=== PATIENT | female | born 1955 | race Caucasian/White ===

== ENCOUNTER 2019-11-08 19:23 | Inpatient (IN) | payer OTHER, SELFPAY ==
[2019-11-08 19:47] VITALS: BP 126/81; PULSE 152; RESP 22; TEMP 37.1; O2SAT 83; BMI 18.3
[2019-11-08 20:00] VITALS: BP 115/72; PULSE 121; RESP 18; O2SAT 94
--- NOTE | 2019-11-08 20:15 | XR_ITS ---
WS: [id number] XR chest 1V portable [id number] REASON FOR EXAM: cough/congestion FINDINGS: The lung lucero are hyper aerated. The heart mediastinum normal. There is reticular pattern throughout both lung lucero consistent with interstitial disease. There is mild blunting of the right costophrenic angle. The overall appearance the chest is similar to the pr evious exam November 26, 2012. There is arteriosclerotic changes seen in the arch the aorta. 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
--- NOTE | 2019-11-08 20:15 | ECG_ITS ---
Measurements Intervals [place] Rate: 92 P: 75 NH: 138 QRS: 66 QRSD: 88 T: 56 QT: 360 QTc: 445 SINUS RHYTHM WITH OCCASIONAL SUPRAVENTRICULAR PREMATURE COMPLEXES POSSIBLE ANTERIOR MYOCARDIAL INFARCTION , OF INDETERMINATE AGE [30 ms Q WAVE IN V3/V4, OR R < 0.2 mV IN V4] No previous ECG available for comparison Electronically Signed On 11-10-2019 12:44:12 CDT by Tim Ordonez [id number]
--- NOTE | 2019-11-08 20:16 | ED_ITS ---
Entered by Maura Mamhood, acting as scribe for HPI - URI/Sore Throat General: Chief Complaint: Upper Respiratory Infection Stated Complaint: cough/sob Time Seen by Provider: 11/08/19 20:08 Source: patient Mode of arrival: ambulatory Limitations: no limitations History of Present Illness: HPI Narrative: 64 yo Female presents to ED with flu like symptoms. Pt states that she started getting sick about 3 weeks ago. Pt states that she has been coughing, sneezing, has had weakness, and body aches. Pt states that some days she has been thrown up and others not so much. Pt states that she had a syncopal episode. Pt states that she previous had an episode of syncope in June and was told to come in if it happened again. Pt states that she is taking Lynn-seltzer cold and flu, mucinex, dayquil, nyquil, and cough medicine. Pt states that she doesn't have a history of atrial fibrillation. Pt states that before this started she was smoking 2 packs of cigarettes a day, pt states that now she smokes about a 1/2 pack per day. Pt states that she has been coughing up phlegm and spitting it out. MD elicited complaint: cough, sore throat and rhinorrhea Onset (ago): week(s) (3) Consistency: progressively worsening Able to tolerate fluids by mouth: Yes Exacerbating factors: nothing Relieving factors: nothing Associated symptoms: Reports congestion, cough, nasal congestion, rhinorrhea, short of breath, vomiting and other (syncope); Deny chills, chest pain, fever(s) or headache(s) Treatments prior to arrival: cold medicine Review of Systems General: Reports: 10 or more systems reviewed and unremarkable except in HPI and below Const: Reports: body aches; Denies: fever or chills Eyes: Denies: change in vision or blurry vision ENMT: Reports: nasal congestion Card: Reports: syncope, shortness of breath on exertion and shortness of breath when lying down; Denies: chest pain, palpitations, irregular heart rhythm, edema or swelling of feet/ankles Resp: Reports: shortness of breath and productive cough; Denies: non-productive cough GI: Reports: vomiting : Denies: flank pain, difficulty urinating, painful urination, urinary frequency, urinary urgency or urinary hesitancy Musc: Denies: neck pain, back pain or extremity swelling Skin/Breast: Denies: rash, itching or redness Neuro: Denies: headache, numbness in extremities or weakness in extremities Endo: Denies: excessive urination, excessive thirst or tired all the time PFSH ED PFSH: Social History Smoking and tobacco status: current every day smoker Physical Exam Const: COMMON NORMALS: no apparent distress, average body habitus, oriented x3, no limitations, healthy appearing, alert and well nourished HENMT: COMMON NORMALS: normocephalic, head/scalp atraumatic and moist oral mucous membranes HEAD & SCALP: normocephalic and atraumatic Eye: COMMON NORMALS: PERRL, EOMs intact bilaterally, conjunctivae normal and no scleral icterus CONJUNCTIVA: Yes conjunctivae normal PUPIL: Yes PERRL Neck/C-Spine: COMMON NORMALS: full ROM, supple, no meningeal signs, no JVD and no carotid bruits Chest: COMMONS NORMALS: inspection of chest normal and palpation of chest normal Resp: COMMON NORMALS: normal respiratory effort, no retractions, no use of accessory muscles, clear to auscultation bilaterally and percussion normal AUSCULTATION: clear to auscultation bilaterally PERCUSSION: percussion normal Cardio: COMMON NORMALS: no JVD, regular rhythm, S1 normal heart sound, S2 normal heart sound, no gallops, no clicks, no murmurs, no rub and peripheral pulses 2+ throughout; negative for regular rate RATE: abnormal rate and tachycardic RHYTHM: regular rhythm HEART SOUNDS: S1 normal and S2 normal PERIPHERAL PULSES: pulses 2+ throughout GI: COMMON NORMALS: normal to inspection, nondistended, normoactive bowel sounds, soft to palpation, non-tender, no hepatosplenomegaly, no masses and no bruits PALPATION: Yes soft and Yes no hepatosplenomegaly : COMMON NORMALS: Yes no CVA tenderness BLADDER/KIDNEY EXAM: Yes no CVA tenderness Back/Pelvis: COMMON NORMALS: no CVA tenderness Extremity: COMMON NORMALS: normal to inspection, full ROM, normal capillary refill, no calf tenderness and no pedal edema Neuro: COMMON NORMALS: oriented x3 SENSORIUM/ORIENTATION: Yes alert MENINGEAL SIGNS: Yes no meningeal signs Skin: COMMON NORMALS: no rashes or lesions noted, no wounds, skin turgor normal, no jaundice, no petechiae and no mottling GENERAL SKIN EXAM: no rashes or lesions noted and turgor normal Course Consultations: Consultation #1: Dr. Hubbard, hospitalist. She kindly accepted the patient to her service. Time: 22:55 Vital Signs: Vital signs: Vital Signs Temperature 98.8 F 11/08/19 19:47 Pulse Rate 87 11/08/19 23:09 Respiratory Rate 20 H 11/08/19 23:09 Blood Pressure 122/62 11/08/19 23:09 Pulse Oximetry 93 11/08/19 23:09 MDM - URI/Sore Throat MDM Narrative: Medical decision making narrative: 64-year-old female patient with a history of COPD who presents to the emergency department with a several week history of cough and shortness of breath. Evaluation in the emergency department is concerning for leukocytosis which is significant, and possibly right lower lobe pneumonia. She is admitted for further evaluation and management Medical Records: Attestation: I reviewed the patient's medical records. Lab Data: Attestation: I reviewed the patient's lab results. Labs: Lab Results 11/08/19 11/08/19 11/08/19 Range/Units 20:25 20:25 20:25 WBC 17.6 H (4.0-10.0) 10^3/ uL RBC 4.01 L (4.1-5.3) 10^6/u L Hgb 12.5 (11.5-15.3) g/dL Hct 39.3 (37.0-47.0) % MCV 98.0 (81-99) fL MCH 31.2 (28.0-34.0) pg MCHC 31.8 (30.0-36.0) g/dL RDW 13.2 (12.1-15.1) % Plt Count 431 H (130-400) 10^3/c mm MPV 10.1 (7.4-10.4) fL Neut % (Auto) 80.3 % Lymph % (Auto) 12.4 % [place] % (Auto) 6.1 % Eos % (Auto) 0.2 % Baso % (Auto) 0.3 % Neut # (Auto) 14.1 H (1.8-7.7) 10^3/u L Lymph # (Auto) 2.2 (0.8-4.8) 10^3/u L [place] # (Auto) 1.1 H (0.2-0.9) 10^3/u L Eos # (Auto) 0.0 (0.0-0.8) 10^3/u L Baso # (Auto) 0.1 (0.0-0.1) 10^3/u L Nucleated RBC % (a uto) 0 % Nucleated RBCs # 0.0 /100WBC D-Dimer (0-0.59) ug/mIFE U Sodium 137 (136-145) mmol/L Potassium 3.8 (3.5-5.1) mmol/L Chloride 94 L (98-107) mmol/L Carbon Dioxide 35 H (22-29) mmol/L Anion Gap 11.8 (5-19) BUN 13 (8-23) mg/dL Creatinine 0.4 L (0.5-0.9) mg/dL GFR Calculation 159.7 H (90-130) mL/min Glucose 142 H (65-115) mg/dL Calculated Osmolal ity 283 L (285-295) mOsm/k g Lactate 0.5 (0.5-2.2) mmol/L Calcium 9.7 (8.5-10.5) mg/dL Total Bilirubin 0.3 (0.15-1.2) mg/dL AST 25 (0-32) U/L ALT 30 (0-33) U/L Alkaline Phosphata se 216 H (35-105) IU/L Troponin T Baselin e (0-10) ng/mL Troponin T 120 Min [place] (0-10) ng/mL Delta Troponin T (0-10) ABS# C-Reactive Protein 208.4 H (0.0-4.9) mg/L Total Protein 7.7 (6.6-8.7) g/dL Albumin 3.3 L (3.5-5.2) g/dL Globulin 4.4 (1.3-4.6) g/dL TSH (0.27-4.20) uIU/ mL Urine Color (Yellow) Urine Appearance (CLEAR) Urine pH (5-7) Ur Specific Gravit y (1.005-1.030) Urine Protein (Negative) Urine Glucose (UA) (Normal) Urine Ketones (Negative) Urine Blood (Negative) Urine Nitrate (Negative) Urine Bilirubin (NEGATIVE) Urine Urobilinogen (Negative) mg/dL Ur Leukocyte Maddi ase (Negative) Urine RBC (0-2) /hpf Urine WBC (0-5) /hpf Ur Squamous Epith Cells (0-5) Urine Bacteria (NONE) Urine Mucus Influenza Type A A g (Negative) POC Influenza B Ag (Negative) 11/08/19 11/08/19 11/08/19 Range/Units 20:25 20:25 20:25 WBC (4.0-10.0) 10^3/ uL RBC (4.1-5.3) 10^6/u L Hgb (11.5-15.3) g/dL Hct (37.0-47.0) % MCV (81-99) fL MCH (28.0-34.0) pg MCHC (30.0-36.0) g/dL RDW (12.1-15.1) % Plt Count (130-400) 10^3/c mm MPV (7.4-10.4) fL Neut % (Auto) % Lymph % (Auto) % [place] % (Auto) % Eos % (Auto) % Baso % (Auto) % Neut # (Auto) (1.8-7.7) 10^3/u L Lymph # (Auto) (0.8-4.8) 10^3/u L [place] # (Auto) (0.2-0.9) 10^3/u L Eos # (Auto) (0.0-0.8) 10^3/u L Baso # (Auto) (0.0-0.1) 10^3/u L Nucleated RBC % (a uto) % Nucleated RBCs # /100WBC D-Dimer 1.88 H (0-0.59) ug/mIFE U Sodium (136-145) mmol/L Potassium (3.5-5.1) mmol/L Chloride (98-107) mmol/L Carbon Dioxide (22-29) mmol/L Anion Gap (5-19) BUN (8-23) mg/dL Creatinine (0.5-0.9) mg/dL GFR Calculation (90-130) mL/min Glucose (65-115) mg/dL Calculated Osmolal ity (285-295) mOsm/k g Lactate (0.5-2.2) mmol/L Calcium (8.5-10.5) mg/dL Total Bilirubin (0.15-1.2) mg/dL AST (0-32) U/L ALT (0-33) U/L Alkaline Phosphata se (35-105) IU/L Troponin T Baselin e 9 (0-10) ng/mL Troponin T 120 Min [place] (0-10) ng/mL Delta Troponin T (0-10) ABS# C-Reactive Protein (0.0-4.9) mg/L Total Protein (6.6-8.7) g/dL Albumin (3.5-5.2) g/dL Globulin (1.3-4.6) g/dL TSH 0.58 (0.27-4.20) uIU/ mL Urine Color (Yellow) Urine Appearance (CLEAR) Urine pH (5-7) Ur Specific Gravit y (1.005-1.030) Urine Protein (Negative) Urine Glucose (UA) (Normal) Urine Ketones (Negative) Urine Blood (Negative) Urine Nitrate (Negative) Urine Bilirubin (NEGATIVE) Urine Urobilinogen (Negative) mg/dL Ur Leukocyte Maddi ase (Negative) Urine RBC (0-2) /hpf Urine WBC (0-5) /hpf Ur Squamous Epith Cells (0-5) Urine Bacteria (NONE) Urine Mucus Influenza Type A A g (Negative) POC Influenza B Ag (Negative) 11/08/19 11/08/19 11/08/19 Range/Units 21:53 22:05 22:17 WBC (4.0-10.0) 10^3/ uL RBC (4.1-5.3) 10^6/u L Hgb (11.5-15.3) g/dL Hct (37.0-47.0) % MCV (81-99) fL MCH (28.0-34.0) pg MCHC (30.0-36.0) g/dL RDW (12.1-15.1) % Plt Count (130-400) 10^3/c mm MPV (7.4-10.4) fL Neut % (Auto) % Lymph % (Auto) % [place] % (Auto) % Eos % (Auto) % Baso % (Auto) % Neut # (Auto) (1.8-7.7) 10^3/u L Lymph # (Auto) (0.8-4.8) 10^3/u L [place] # (Auto) (0.2-0.9) 10^3/u L Eos # (Auto) (0.0-0.8) 10^3/u L Baso # (Auto) (0.0-0.1) 10^3/u L Nucleated RBC % (a uto) % Nucleated RBCs # /100WBC D-Dimer (0-0.59) ug/mIFE U Sodium (136-145) mmol/L Potassium (3.5-5.1) mmol/L Chloride (98-107) mmol/L Carbon Dioxide (22-29) mmol/L Anion Gap (5-19) BUN (8-23) mg/dL Creatinine (0.5-0.9) mg/dL GFR Calculation (90-130) mL/min Glucose (65-115) mg/dL Calculated Osmolal ity (285-295) mOsm/k g Lactate (0.5-2.2) mmol/L Calcium (8.5-10.5) mg/dL Total Bilirubin (0.15-1.2) mg/dL AST (0-32) U/L ALT (0-33) U/L Alkaline Phosphata se (35-105) IU/L Troponin T Baselin e (0-10) ng/mL Troponin T 120 Min [place] 8.26 (0-10) ng/mL Delta Troponin T -0.74 L (0-10) ABS# C-Reactive Protein (0.0-4.9) mg/L Total Protein (6.6-8.7) g/dL Albumin (3.5-5.2) g/dL Globulin (1.3-4.6) g/dL TSH (0.27-4.20) uIU/ mL Urine Color Yellow (Yellow) Urine Appearance Sl hazy (CLEAR) Urine pH 7 (5-7) Ur Specific Gravit y 1.005 (1.005-1.030) Urine Protein Neg (Negative) Urine Glucose (UA) Norm (Normal) Urine Ketones Negative (Negative) Urine Blood 3+ H (Negative) Urine Nitrate Negative (Negative) Urine Bilirubin Neg (NEGATIVE) Urine Urobilinogen 4 H (Negative) mg/dL Ur Leukocyte Maddi ase Negative (Negative) Urine RBC 15-25 H (0-2) /hpf Urine WBC 5-10 H (0-5) /hpf Ur Squamous Epith Cells 0-4 H (0-5) Urine Bacteria 1+ H (NONE) Urine Mucus 2+ Influenza Type A A g Negative (Negative) POC Influenza B Ag Negative (Negative) EKG Data^: EKG 1: Attestation: I personally reviewed and interpreted this EKG as follows: EKG interpretation date: 11/08/19 EKG interpretation time: 20:11 Prior EKG tracings: not available for review Interpretation: Atrial flutter. Heart rate 150 bpm. EKG 2: Attestation: I personally reviewed and interpreted this EKG as follows: EKG interpretation date: 11/08/19 EKG interpretation time: 21:25 Prior EKG tracings: available for review Interpretation: Normal sinus rhythm with sinus arrhythmia. Heart rate [address] changes. Normal axis. EKG 3: Attestation: I personally reviewed and interpreted this EKG as follows: EKG interpretation date: 11/08/19 EKG interpretation time: 23:00 Prior EKG tracings: available for review Interpretation: Unchanged from her earlier EKG from about an hour ago Coding Level of Care Code ED Crime Laboratory Analyst for Chg Fwd Exam Comprehensive The documentation recorded by the Timoteo conway Carmen, accurately reflects the service I personally performed and the decisions made by River alejandro Adegoke I, MD, [facility] [place] Nov 08, 2019 19:23
[2019-11-08] MEDS: sodium chloride 0.9% 1,000 ML 999 ML IV (20:26)
[2019-11-08 20:35] LABS: Basophils # 0.1 10^3/uL (0.0-0.1); Basophils % 0.3 %; Eosinophils % 0.2 %; Hematocrit 39.3 % (37.0-47.0); Hemoglobin 12.5 g/dL (11.5-15.3); Lymphocytes # 2.2 10^3/uL (0.8-4.8); Lymphocytes % 12.4 %; Mean Corpuscular HGB Conc 31.8 g/dL (30.0-36.0); Mean Corpuscular Hemoglobin 31.2 pg (28.0-34.0); Mean Platelet Volume 10.1 fL (7.4-10.4); Monocytes # 1.1 10^3/uL (0.2-0.9); Monocytes % 6.1 %; Neutrophils # 14.1 10^3/uL (1.8-7.7); Neutrophils % 80.3 %; Nucleated Red Blood Cells % 0 %; Platelet Count 431 10^3/cmm (130-400); Red Blood Count 4.01 10^6/uL (4.1-5.3); Red Cell Distribution Width 13.2 % (12.1-15.1); White Blood Count 17.6 10^3/uL (4.0-10.0)
[2019-11-08 20:48] LABS: Alanine Aminotransferase 30 U/L (0-33); Albumin Level 3.3 g/dL (3.5-5.2); Alkaline Phosphatase 216 IU/L (35-105); Anion Gap 11.8 (5-19); Aspartate Amino Transferase 25 U/L (0-32); Blood Urea Nitrogen 13 mg/dL (8-23); C Reactive Protein 208.4 mg/L (0.0-4.9); Calcium 9.7 mg/dL (8.5-10.5); Carbon Dioxide 35 mmol/L (22-29); Chloride 94 mmol/L (98-107); Creatinine Clr Calc Pharmacy 59.1413; Globulin 4.4 g/dL (1.3-4.6); Glomerular Filtration Rate 159.7 mL/min (90-130); Glucose 142 mg/dL (65-115); Osmolality Calculated 283 mOsm/kg (285-295); Potassium 3.8 mmol/L (3.5-5.1); Sodium 137 mmol/L (136-145); Total Bilirubin 0.3 mg/dL (0.15-1.2); Total Protein 7.7 g/dL (6.6-8.7)
[2019-11-08 20:49] LABS: Lactate (Lactic Acid level) 0.5 mmol/L (0.5-2.2)
[2019-11-08 20:50] LABS: Troponin(5th) Baseline 9 ng/mL (0-10)
[2019-11-08 21:07] LABS: Thyroid Stimulating Hormone 0.58 uIU/mL (0.27-4.20)
--- NOTE | 2019-11-08 21:10 | PC.NURSE ---
After pulling Cardizem to make the drip this RN went to the patients room and the patients heart rate was in the 90's at this time.
--- NOTE | 2019-11-08 21:10 | PC.NURSE ---
Per physician hold Cardizem drip and obtain EKG
--- NOTE | 2019-11-08 21:53 | PC.NURSE ---
When walking patient to the restroom and back to provide urine sample when patient was back on the monitor her Oxygen had dropped down to 77% on RA. Patient placed back on [address] Holman notified.
[2019-11-08 22:00] VITALS: BP 120/70; PULSE 94; RESP 20; O2SAT 94
--- NOTE | 2019-11-08 22:15 | ECG_ITS ---
Measurements Intervals [place] Rate: 93 P: 77 MI: 142 QRS: 76 QRSD: 88 T: 66 QT: 354 QTc: 442 SINUS RHYTHM WITH SINUS ARRHYTHMIA POSSIBLE ANTERIOR MYOCARDIAL INFARCTION , OF INDETERMINATE AGE [30 ms Q WAVE IN V3/V4, OR R < 0.2 mV IN V4] No previous ECG available for comparison Electronically Signed On 11-10-2019 12:49:10 CDT by Tim Ordonez [id number]
[2019-11-08 22:23] LABS: Specific Gravity, Urine 1.005 (1.005-1.030); Urine Appearance SL Hazy (CLEAR); Urine Color Yellow (Yellow); pH Urine 7 (5-7)
[2019-11-08 22:24] LABS: Add Urine Culture? Yes; Add Urine Microscopic? YES; Bacteria Urine 1+; Bilirubin Urine Neg (NEGATIVE); Blood Urine 3+ (Negative); Glucose Urine UA Norm (Normal); Ketones Urine Negative (Negative); Leukocyte Esterase Urine Negative (Negative); Mucus Urine 2+; Nitrate Urine Negative (Negative); Protein Urine Neg (Negative); RBC Urine 15-25 /hpf (0-2); Squamous Epithelial Cell Urine 0-4 (0-5); Urobilinogen Urine 4 mg/dL (Negative)
[2019-11-08 22:32] LABS: Influenza A by IFA Negative (Negative); Influenza B by IFA Negative (Negative)
[2019-11-08 22:40] LABS: D Dimer 1.88 ug/mIFEU (0-0.59)
[2019-11-08 22:48] LABS: Troponin 5 2HR 8.26 ng/mL (0-10)
--- NOTE | 2019-11-08 22:51 | CTR_ITS ---
PROCEDURE INFORMATION: Exam: CT Angiography Chest With Contrast Exam date and time: 11/08/2019 10:52 PM Age: 64 years old Clinical indication: Cough and shortness of breath; Chest pain; Additional info: SOB TECHNIQUE: Imaging protocol: Computed tomographic angiography of the chest with intravenous contrast. 3D rendering: MIP and/or 3D reconstructed images were created by the technologist. Total DLP: 440.91 mGy-cm Radiation optimization: All CT scans at this facility use at least one of these dose optimization techniques: automated exposure control; mA and/or kV adjustment per patient size (includes targeted exams where dose is matched to clinical indication); or iterative reconstruction. Contrast material: OMNI 350; Contrast volume: 83 ml; Contrast route: 18G; COMPARISON: CT chest w con* [id number] 07/22/2019 2:26 PM FINDINGS: Pulmonary arteries: Normal. No pulmonary emboli. Aorta: Unremarkable. No aortic aneurysm. No aortic dissection. Lungs: Centrilobular emphysema Right middle and lower lobe along with lingular lobe airspace opacities suggestive pneumonic infiltrates. Pleural space: Unremarkable. No pneumothorax. No pleural effusion. Heart: Unremarkable. No cardiomegaly. No pericardial effusion. Lymph nodes: Unremarkable. No enlarged lymph nodes. Bones/joints: Unremarkable. No acute fracture. Soft tissues: Unremarkable. CT/CT angio chest PE protcl [id number] IMPRESSION: 1. Negative for pulmonary embolus. 2. Right middle and lower lobe along with lingular lobe airspace opacities suggestive pneumonic infiltrates. 3. Centrilobular emphysema Radiation Dose CTDIVOL = (mGy): DLP = 440.91 (mGy-cm)
[2019-11-08] MEDS: cefTRIAXone 1,000 MG in sodium chloride 0.9% (plus) 50 ML 100 MG IV (23:07)
[2019-11-08 23:09] VITALS: BP 122/62; PULSE 87; RESP 20; O2SAT 93
[2019-11-08 23:09] LABS: Troponin 5 2HR Delta -0.74 ABS# (0-10)
[2019-11-08 23:30] VITALS: TEMP 37.1
[2019-11-08] MEDS: iohexol 350 mg/mL 100 mL Btl IV (23:42)
[2019-11-08] MEDS: ipratropium-albuterol 3 mL Neb INHALATION (23:45)
[2019-11-08 23:48] VITALS: BP 120/72; PULSE 111; PULSE 89; RESP 16; RESP 18; O2SAT 93; O2SAT 98
[2019-11-08] MEDS: sodium chloride 0.9% 1,000 ML 100 ML IV (23:51)
[2019-11-08] MEDS: azithromycin 500 MG in sodium chloride 0.9% 250 ML 250 MG IV (23:52)
[2019-11-09] VITALS (19 sets, daily range): BP systolic 91–108; BP diastolic 58–67; PULSE 74–155; RESP 18–36; TEMP 36.6–36.9; O2SAT 90–98
--- NOTE | 2019-11-09 00:26 | PC.NURSE ---
Unable to complete med rec at this time. Patient states she takes one medication at home but cannot think of the name. Patient arrived to her room after report was received via phone from the ED. Patient is alert and oriented and able to ambulate. Patient is on 4 L NC. Patient has been oriented to her room and has call light within reach. Educate to ask for help when getting up.
--- NOTE | 2019-11-09 00:32 | PC.NURSE ---
Patient's heart rate was 108 when she arrived the the floor from the ED. When patient got up to bathroom, heart rate went up into 140s-150s and has not come back down since. Dr. Hubbard notified.
--- NOTE | 2019-11-09 00:48 | ECG_ITS ---
Measurements Intervals [place] Rate: 150 P: NM: 0 QRS: 81 QRSD: 88 T: 54 QT: 275 QTc: 435 ATRIAL FLUTTER/TACHYCARDIA WITH RAPID VENTRICULAR RESPONSE POSSIBLE ANTERIOR MYOCARDIAL INFARCTION , PROBABLY OLD [30 ms Q WAVE IN V3/V4, OR R < R < R < R < 0.2 mV IN V4] CRITICAL TEST RESULT No previous ECG available for comparison Electronically Signed On 11-10-2019 12:44:17 CDT by Tim Ordonez [id number]
[2019-11-09 01:01] LABS: NT Pro B Type Natriuretic Pept 430 pg/mL (0-125)
--- NOTE | 2019-11-09 01:07 | PC.NURSE ---
Dr. Hubbard in room to see yamilet.
--- NOTE | 2019-11-09 01:18 | PC.NURSE ---
Ordered by Dr. Hubbard to not start Cardizem drip at this time and to see if Cardizem bolus helps patient. Ordered to notify doctor if heart rate does not slow down within 30 minutes. Patient's heart rate has now slowed down to 80s-90s in SR at 0119 AM.
--- NOTE | 2019-11-09 02:12 | P.HP_ITS ---
Providers/Chief Complaint Admitting Physician: Nicole Hubbard MD Chief Complaint: cough/sob History of Present Illness Lisa Peterson is a 64 year old female with h/o COPD , not on home 02, denies any inhaler use, presenting today with 3 weeks of worsening cough and shortness of breath. Symptoms first started 3 weeks ago with chills, malasie, running nose and dry cough. Worsened to the point of having multiple paroxysmal bouts of cough which is now productive. Also with worsening SOB, usually able to walk without limitations but now limited to walking about 25 to 30 ft. c/o orthopnea+. denies chest pain. has not checked her fever. Sputum color white to mucoid. No past known cardiac history. In ER reported to have A fib with RVR with Hr 152, returned to sinus rhythm in 80s with cardizem 25mg IVP. Also has new 02 requirement of 4lpm. On arrival was 83% on RA. leukocytosis of 17. CTA chest negative for PE, shows RML and RLL pneumonic infiltrates with emphysema. Influenza swab negative. Has thus far tried only OTC cough suppressants with no relief in symptoms. No travel history. No sick contacts. Review of Systems General: Reports: 10 or more systems reviewed and unremarkable except in HPI and below Const: Reports: chills; Denies: fever or body aches Eyes: Denies: change in vision, blurry vision or photophobia ENMT: Reports: hoarseness; Denies: throat pain, enlarged tonsils, painful swallowing or nasal congestion Card: Reports: lightheadedness and shortness of breath on exertion; Denies: chest pain, palpitations, irregular heart rhythm, edema, swelling of feet/ankles, pre-syncope or shortness of breath when lying down Resp: Reports: shortness of breath and productive cough; Denies: non-productive cough, wheezing, stridor, pain on inspiration, change in phlegm color, coughing up blood or chest congestion GI: Denies: abdominal pain, nausea, vomiting, vomiting blood, coffee grounds in vomit, difficulty swallowing, heartburn/indigestion, diarrhea, constipation, cramping, change in stool character, blood in stool or black tarry stool : Denies: flank pain, difficulty urinating, painful urination, urinary frequency, urinary urgency, urinary hesitancy or blood in urine Musc: Denies: neck pain, back pain, extremity pain, joint swelling, joint warmth or deformity Neuro: Denies: headache, numbness in extremities, weakness in extremities, changes in sensation, difficulty walking, frequent falls, dizziness, vertigo, behavioral changes, slurred speech or seizure-like activity Psych: Denies: anxiety, depression, suicidal ideation or homicidal ideation Endo: Denies: excessive urination, excessive thirst, tired all the time, cold intolerance or hot flashes Philip/Lymph: Denies: easy bruising or easy bleeding Medications/Allergies Allergies Allergy/AdvReac Type Severity Reaction Status Date / Time codeine Allergy ALGY-Anaphy Verified 11/09/19 00:24 laxis Penicillins AdvReac Mild Unknown Verified 11/09/19 00:24 PFSH Acute PFSH: Medical History (Updated 11/09/19 @ 02:37 by Nicole Hubbard MD) COPD (chronic obstructive pulmonary disease) Surgical History (Updated 11/09/19 @ 02:36 by Nicole Hubbard MD) Hx of hysterectomy Social History Smoking and tobacco status: current every day smoker Vitals/I&O/Wt Last Vital Signs Temp 98.7 F 11/08/19 23:30 Pulse 92 11/09/19 01:41 Resp 22 H 11/09/19 01:18 BP 105/66 11/09/19 01:41 Pulse Ox 93 11/08/19 23:48 11/08/19 11/08/19 11/09/19 14:59 22:59 06:59 Intake Total 1000 / 1000 Balance 1000 / 1000 Weight last 48 hrs Weight 49.895 kg Physical Exam Narrative: EXAM NARRATIVE: GEN: Awake, alert and oriented, no acute distress CVS: S1S2 N RS: B/L scattered wheexing all areas Abd: Soft, nt/nd , bs+ SUPPLIER QUALITY ENGINEERING MANAGER: no focal neuro deficits Data : 11/09/19 02:05 11/09/19 02:05 Micro: Microbiology 11/08/19 20:26 Blood Culture - Preliminary Blood SPECIMEN COLLECTED 11/08/19 20:25 Blood Culture - Preliminary Blood SPECIMEN COLLECTED A&P Assessment and plan (1) COPD (chronic obstructive pulmonary disease): Status: Acute Code(s): J44.9 - Chronic obstructive pulmonary disease, unspecified (2) Community acquired pneumonia: Status: Acute Code(s): J18.9 - Pneumonia, unspecified organism (3) Sinus tachycardia: Status: Acute Code(s): R00.0 - Tachycardia, unspecified (4) Sepsis: Status: Acute Code(s): A41.9 - Sepsis, unspecified organism Additional A&P Information Admit to CSU 1. Community Acquired pneumonia Start ceftriaxone and azithromycin for empiric treatment Sputum cx and gram stain Blood culture Influenza swab negative No h/o sick contacts, travel or fever, but given new 02 requirement, worsening symptoms and symptoms out of proportion to CT findings, call was placed to [facility] emergency response line for COVID testing. They will be calling back in morning after 7:30 am to determine patient's approval for test. Continue contact and droplet precautions until then, patient is in a solo room 2. sepsis: meets sepsis criteria with leukocytosis, tachycardia and infectious source abx as above 3. Sinus tachycardia. Initially reported to have A fib/flutter with RVR in the ER for which she received cardizem in the ED with return of sinus rhythm. Most recent EKG appears to be sinus tachycardia, more apparent when HR slows down between 80-90. Start metoprolol 12.5mg po BID for now check BNP Clinically does not appear to have signs of CHF, however has some concerning features incl orthopnea, new 02 requirement, new possible AFib noted on tele in ER, will obtain echocardiogram troponins negative, no St-T changes on EKG 4. COPD, not currently on any inhalers or home 02 new 02 requirement today with 4lpm NC , seems somewhat out of proportion with CT findings Start with nebulization q4h, hold off on steroids unless no clinical improevement Patient currently comfortable Full code Dvt ppx: lovenox Attestations Medical Necessity Statement*: anticipate >2midnight admission for pneumonia, need for iv abx Coding Level of Care Code Acute Plastic Parts Fabricator for g Fwd Diagnoses COPD (chronic obstructive pulmonary disease) J44.9 Community acquired pneumonia J18.9 Sinus tachycardia R00.0 Sepsis A41.9
--- NOTE | 2019-11-09 02:15 | ECG_ITS ---
Measurements Intervals [place] Rate: 146 P: [place]: 0 QRS: 84 QRSD: 83 T: 66 QT: 291 QTc: 454 ATRIAL FLUTTER/TACHYCARDIA WITH RAPID VENTRICULAR RESPONSE POSSIBLE ANTERIOR MYOCARDIAL INFARCTION [30 ms Q WAVE IN V3/V4, OR R < 0.2 mV IN V4], PROBABLY OLD ABNORMAL RHYTHM ECG No previous ECG available for comparison Electronically Signed On 11-10-2019 12:48:54 CDT by Tim Ordonez [email or web address]
[2019-11-09 02:20] LABS: Basophils # 0.1 10^3/uL (0.0-0.1); Basophils % 0.3 %; Eosinophils % 0.2 %; Hematocrit 38.5 % (37.0-47.0); Hemoglobin 11.9 g/dL (11.5-15.3); Lymphocytes # 2.5 10^3/uL (0.8-4.8); Lymphocytes % 13.7 %; Mean Corpuscular HGB Conc 30.9 g/dL (30.0-36.0); Mean Corpuscular Hemoglobin 31.2 pg (28.0-34.0); Mean Corpuscular Volume 100.8 fL (81-99); Mean Platelet Volume 10.2 fL (7.4-10.4); Monocytes # 1.3 10^3/uL (0.2-0.9); Monocytes % 7.1 %; Neutrophils # 13.9 10^3/uL (1.8-7.7); Nucleated Red Blood Cells % 0 %; Platelet Count 415 10^3/cmm (130-400); Red Blood Count 3.82 10^6/uL (4.1-5.3); Red Cell Distribution Width 13.3 % (12.1-15.1); White Blood Count 17.8 10^3/uL (4.0-10.0)
[2019-11-09 02:25] LABS: Blood Urea Nitrogen 9 mg/dL (8-23); Calcium 8.6 mg/dL (8.5-10.5); Carbon Dioxide 30 mmol/L (22-29); Chloride 98 mmol/L (98-107); Creatinine Clr Calc Pharmacy 59.1413; Glomerular Filtration Rate 159.7 mL/min (90-130); Glucose 129 mg/dL (65-115); Osmolality Calculated 284 mOsm/kg (285-295); Sodium 138 mmol/L (136-145)
[2019-11-09 02:28] LABS: Troponin 5 6HR 8.69 ng/mL (0-10)
[2019-11-09 02:31] LABS: Troponin 5 6HR Delta -0.31 ng/L (0-12)
--- NOTE | 2019-11-09 03:09 | USCV_ITS ---
Lisa Peterson Age: 64 Gender: F : 1955 Exam Date: 11/09/2019 13:28 Ordering Phys: Nicole Hubbard MD Technologist: Román Jackson [place]am [place] [facility] [place]: afib BP: 99 / 67 HR: Rhythm: Sinus Technical Quality: Adequate MEASUREMENTS (Male / Female) Normal Values 2D ECHO LV Diastolic Diameter PLAX 3.3 cm 4.2 - 5.9 / 3.9 - 5.3 cm LV Systolic Diameter PLAX 2.3 cm IVS Diastolic Thickness 0.9 cm 0.6 - 1.0 / 0.6 - 0.9 cm IVS Systolic Thickness 1.1 cm LVPW Diastolic Thickness 1.0 cm 0.6 - 1.0 / 0.6 - 0.9 cm LVPW Systolic Thickness 1.2 cm LVOT Diameter 2.0 cm LV Ejection Fraction 2D Teich 56.3 % LV Ejection Fraction MOD 2C 58.1 % LV Ejection Fraction 2C AL 59.0 % LA Diameter 3.1 cm LA Width 3.7 cm LA Height 3.3 cm RA Width 3.3 cm RA Height 3.6 cm Aorta at Sinotubular Diameter 2.9 cm M-MODE LV Diastolic Diameter MM 4.5 cm 4.2 - 5.9 / 3.9 - 5.3 cm LV Systolic Diameter MM 3.1 cm LV Ejection Fraction MM Teich 60.1 % IVS Diastolic Thickness MM 0.7 cm 0.6 - 1.0 / 0.6 - 0.9 cm IVS Systolic Thickness MM 1.3 cm LVPW Diastolic Thickness MM 1.3 cm 0.6 - 1.0 / 0.6 - 0.9 cm LVPW Systolic Thickness MM 1.6 cm RV Diastolic Diameter MM 1.3 cm Aortic Annulus Diameter 3.1 cm LA Ao Ratio MM 1.0 MV E Point Septal Separation 0.8 cm DOPPLER AV Peak Velocity 120.0 cm/s LVOT Peak Velocity 101.0 cm/s AV Area Cont Eq vti 2.3 cm squared AV Area Cont Eq pk 2.7 cm squared MV Area PHT 5.0 cm squared Mitral E to A Ratio 1.0 MV E' Velocity 15.0 cm/s Mitral E to MV E' Ratio 5.7 Mitral E to LV E' Lateral Ratio 4.9 Mitral E to LV E' Septal Ratio 6.8 TR Peak Velocity 165.0 cm/s TR Peak Gradient 10.8 mmHg TV Peak E Velocity 97.0 cm/s Right Atrial Pressure 3.0 mmHg Pulmonary Artery Systolic Pressu 13.9 mmHg FINDINGS Left Ventricle Normal left ventricular size, systolic function with EF 65 % .No regional wall motion abnormalities. Normal left ventricular wall thickness. Normal diastolic filling pattern. Left ventricular cavity not well visualized. Right Ventricle The right ventricle is normal in size and function. Right Atrium The right atrium is normal in size. Left Atrium The left atrium is normal in size. Mitral Valve Structurally normal mitral valve without significant stenosis or prolapse. There is no mitral regurgitation. Mitral valve not well visualized. Aortic Valve Structurally normal aortic valve without significant sclerosis or stenosis. There is no aortic regurgitation. Aortic valve not well visualized. Tricuspid Valve Structurally normal tricuspid valve without significant stenosis or regurgitation. Pulmonary artery systolic pressure is normal. Tricuspid valve not well visualized. Pulmonic Valve Structurally normal pulmonic valve without significant stenosis. There is no pulmonic regurgitation. Pulmonic valve not well visualized. Pericardium Normal pericardium without effusion. Aorta Normal ascending aorta dimension. CONCLUSIONS Normal left ventricular size and function with an estimated ejection fraction of 65 %. No significant valve abnormalities. No pericardial fusion Technically limited study. Regina Ordonez MD (Electronically Signed) Final Date: 09 November 2019 14:57 S
[2019-11-09] MEDS: metoprolol tartrate 25 mg Tablet 12.5 MG PO ×3 (04:02→18:58)
[2019-11-09] MEDS: enoxaparin 30 mg/0.3 mL Syringe SUBCUT (04:02)
[2019-11-09] MEDS: ipratropium-albuterol 3 mL Neb INHALATION ×5 (04:41→19:50)
[2019-11-09 06:07] LABS: Procalcitonin 0.05 ng/mL (0-0.5)
[2019-11-09 06:24] LABS: Albumin Level 2.6 g/dL (3.5-5.2); Alkaline Phosphatase 217 IU/L (35-105); Aspartate Amino Transferase 31 U/L (0-32); Magnesium 2.1 mg/dL (1.7-2.3); Total Bilirubin 0.2 mg/dL (0.15-1.2); Total Protein 7.1 g/dL (6.6-8.7)
--- NOTE | 2019-11-09 08:00 | PC.NURSE ---
Educate On proper PPE- wearing iso gown, gloves and mask and handwashing in entering pt's room due to Isolation protocol. Assisted in wearing PPE.
[2019-11-09] MEDS: azithromycin 250 mg Tablet 500 MG PO (09:55)
[2019-11-09] MEDS: sodium chloride 0.9% 1,000 ML 100 ML IV (09:56)
--- NOTE | 2019-11-09 13:00 | PC.NURSE ---
Addendum entered by Scott Mendoza RN 11/09/19 17:48: 1300- Educate Temo that he needs to be at home and cannot come back in the facility due to isolation protocol and until the result is back in 24 to 48 hrs. Instructed him to call her phone or nurses station if he has more questions. verbalizes understanding. Original Note: 1300
--- NOTE | 2019-11-09 16:34 | PM.PN ---
Subjective Subjective: Interval history: Chart reviewed, received approval for COVID-19 testing, continue droplet and contact precautions at this time. Patient seen and examined, sitting up in bed, has been weaned down to 2 L nasal cannula, continues to have productive cough. Discussed test results so far and imaging. Swabs obtained for COVID-19 testing earlier today. Heart rate up in the 130s during my bedside assessment. Shortly thereafter slowed down with heart rate in the 70-80 range. Medications: Reviewed: Yes Medication Review Details: Active Medications Generic Name Dose Route Start Last Admin Trade Name Freq PRN Reason Stop Dose Admin Acetaminophen 650 mg 11/09/19 03:05 Tylenol PO Q6H PRN Mild/Mod Pain Or Temp >/= 101 Albuterol/Ipratrop ium 3 ml 11/09/19 03:15 11/09/19 16:18 Duoneb INHALATION 3 ml Q4H.RESPIRATORY S CH Administration Azithromycin 500 mg 11/09/19 09:00 11/09/19 09:55 Zithromax PO 11/11/19 23:59 500 mg DAILY KRZYSZTOF Administration Protocol Enoxaparin Sodium 40 mg 11/10/19 04:00 Lovenox SUBCUT Q24H KRZYSZTOF Sodium Chloride 1,000 mls @ 75 ml s/hr 11/08/19 23:15 11/09/19 10:12 Sodium Chloride 0.9% IV 75 mls/hr .[id number] KRZYSZTOF Infusion Ceftriaxone Sodium 1,000 mg/ 50 mls @ 100 mls/ hr 11/09/19 23:00 Sodium Chloride IV Q24H [facility] Protocol Metoprolol Tartrat e 12.5 mg 11/09/19 03:10 11/09/19 09:55 Lopressor PO 12.5 mg BID KRZYSZTOF Administration Morphine Sulfate 2 mg 11/09/19 03:11 Morphine IVP Q4H PRN SEVERE PAIN Ondansetron HCl 4 mg 11/08/19 23:05 Zofran IVP Q6H PRN NAUSEA AND VOMITI NG codeine Allergy (Verified 11/09/19 00:24) ALGY-Anaphylaxis Penicillins Adverse Reaction (Mild, Verified 11/09/19 00:24) Unknown Vitals/I&O/Wt Last Vital Signs Temp 97.8 F 11/09/19 12:00 Pulse 74 11/09/19 16:18 Resp 20 H 11/09/19 16:18 BP 91/58 11/09/19 15:42 Pulse Ox 93 11/09/19 12:59 11/09/19 11/09/19 11/09/19 06:59 14:59 22:59 Intake Total 700 / 1700 1506.667 / 1506.667 Balance 700 / 1700 1506.667 / 1506.667 Weight last 48 hrs Weight 58.241 kg Weight 49.895 kg Physical Exam Const: COMMON NORMALS: no apparent distress and oriented x3 GENERAL APPEARANCE: cooperative and comfortable NUTRITIONAL APPEARANCE: cachectic ORIENTATION/CONSCIOUSNESS: Yes awake HENMT: COMMON NORMALS: normocephalic, head/scalp atraumatic, hearing grossly normal bilaterally and moist oral mucous membranes HEAD & SCALP: normocephalic and atraumatic TEETH & GINGIVA: Yes poor dentition (tobacco-stained teeth) Eye: COMMON NORMALS: PERRL, EOMs intact bilaterally and conjunctivae normal CONJUNCTIVA: Yes conjunctivae normal PUPIL: Yes PERRL Neck/C-Spine: COMMON NORMALS: full ROM GENERAL: Yes normal visual inspection and Yes trachea midline Resp: COMMON NORMALS: normal respiratory effort, no retractions and no use of accessory muscles EFFORT & INSPECTION: Yes able to speak in complete sentences, Yes symmetric chest movement and Yes tachypneic AUSCULTATION: diminished lung sounds OTHER: -on 2 L NC Cardio: COMMON NORMALS: S1 normal heart sound, S2 normal heart sound and no murmurs RATE: tachycardic RHYTHM: abnormal rhythm regularly irregular HEART SOUNDS: S1 normal and S2 normal GI: COMMON NORMALS: normal to inspection, nondistended, normoactive bowel sounds, soft to palpation and non-tender PALPATION: Yes soft Extremity: COMMON NORMALS: normal to inspection, full ROM and no clubbing, cyanosis or edema; negative for no pedal edema Neuro: COMMON NORMALS: oriented x3, moves all extremities, no focal motor deficits and no sensory deficits noted Psych: COMMON NORMALS: mental status grossly normal, thought process normal, cooperative, affect normal and speech normal SPEECH: Yes normal speech THOUGHT PROCESS: normal thought process Skin: COMMON NORMALS: no rashes or lesions noted, no jaundice, no petechiae and no mottling GENERAL SKIN EXAM: no rashes or lesions noted Data : 03/18/20 02:05 11/09/19 02:05 Micro: Microbiology 11/09/19 04:20 Gram Stain - Final Sputum - Expectorated Sputum 11/08/19 20:26 Blood Culture - Preliminary Blood SPECIMEN COLLECTED 11/08/19 20:25 Blood Culture - Preliminary Blood SPECIMEN COLLECTED A&P Assessment and plan (1) Community acquired pneumonia: -Presented with complaints of productive cough, shortness of breath x 3 weeks -Found to have significant leukocytosis with left shift, hypoxia with oxygen requirement, evidence of right middle and right lower lobe and lingular opacities on imaging. Associated sepsis as evidenced by hypoxia, leukocytosis, tachypnea. Noted normal lactic acid and pro-calcitonin levels, elevated CRP. Continue to trend WBC -Continue ceftriaxone and azithromycin -Noted elevated d-dimer, CTA negative for PE -Follow-up blood culture and sputum culture, Gram stain polymicrobial -approved for COVID-19 testing, nasal swab sample obtained; continue droplet and contact precautions -Supplemental oxygen as needed -Continue close monitoring of respiratory status Status: Acute Qualifiers: Laterality: right Lung location: unspecified part of lung Qualified Code(s): J18.9 - Pneumonia, unspecified organism Code(s): J18.9 - Pneumonia, unspecified organism (2) COPD (chronic obstructive pulmonary disease): -Likely triggered by pneumonia as noted above -Continue nebulizer treatments -Patient is not oxygen dependent at baseline Status: Acute Qualifiers: COPD type: COPD with acute exacerbation Qualified Code(s): J44.1 - Chronic obstructive pulmonary disease with (acute) exacerbation Code(s): J44.9 - Chronic obstructive pulmonary disease, unspecified (3) Sinus tachycardia: -Noted to have A. fib/a flutter in the ER, received Cardizem and converted to sinus tachycardia -Rate controlled and hemodynamically stable -Continue to monitor vital signs -Continue telemetry monitoring -Echo: EF=65%, no RWMA Status: Acute Code(s): R00.0 - Tachycardia, unspecified (4) Sepsis: -secondary to pneumonia as noted above Status: Acute Qualifiers: Sepsis acute organ dysfunction status: unspecified Sepsis type: sepsis due to unspecified organism Qualified Code(s): A41.9 - Sepsis, unspecified organism Code(s): A41.9 - Sepsis, unspecified organism Additional A&P Information -Chronic smoker -regular diet as tolerated -DVT ppx with Lovenox -Dispo: home -Code status: FULL code Attestations Medical Necessity Statement*: Patient requires hospitalization for continued treatment of right-sided pneumonia and acute COPD exacerbation with associated sepsis, requiring close monitoring of her hemodynamic and respiratory status as well as IV antibiotic treatment. Time Spent in Patient Care: Greater than 35 minutes (>than 50% of time spent in counselling and/or direct pt care on unit). Coding Level of Care Code Acute Travel Specialist for [facility] Fwd Exam Comprehensive Diagnoses Community acquired pneumonia J18.9 Laterality: right Lung location: unspecified part of lung COPD (chronic obstructive pulmonary disease) J44.1 COPD type: COPD with acute exacerbation Sinus tachycardia R00.0 Sepsis A41.9 Sepsis acute organ dysfunction status: unspecified Sepsis type: sepsis due to unspecified organism
[2019-11-09] MEDS: cefTRIAXone 1,000 MG in sodium chloride 0.9% (plus) 50 ML 100 MG IV (22:17)
[2019-11-09] MEDS: sodium chloride 0.9% 1,000 ML 75 ML IV (22:18)
[2019-11-10] VITALS (14 sets, daily range): BP systolic 82–116; BP diastolic 54–66; PULSE 71–98; RESP 18–33; TEMP 36.6–36.9; O2SAT 92–98
[2019-11-10] MEDS: ipratropium-albuterol 3 mL Neb INHALATION ×5 (03:41→21:01)
[2019-11-10 04:26] LABS: Basophils % 0.4 %; Eosinophils # 0.1 10^3/uL (0.0-0.8); Eosinophils % 1.3 %; Hematocrit 34.1 % (37.0-47.0); Hemoglobin 10.4 g/dL (11.5-15.3); Lymphocytes # 2.8 10^3/uL (0.8-4.8); Mean Corpuscular HGB Conc 30.5 g/dL (30.0-36.0); Mean Corpuscular Volume 101.5 fL (81-99); Mean Platelet Volume 10.5 fL (7.4-10.4); Monocytes # 0.9 10^3/uL (0.2-0.9); Monocytes % 8.2 %; Neutrophils # 7.2 10^3/uL (1.8-7.7); Neutrophils % 64.2 %; Nucleated Red Blood Cells % 0 %; Platelet Count 409 10^3/cmm (130-400); Red Blood Count 3.36 10^6/uL (4.1-5.3); Red Cell Distribution Width 13.5 % (12.1-15.1); White Blood Count 11.1 10^3/uL (4.0-10.0)
[2019-11-10] MEDS: enoxaparin 40 mg/0.4 mL Syringe SUBCUT (04:41)
[2019-11-10 04:48] LABS: Alanine Aminotransferase 67 U/L (0-33); Albumin Level 2.7 g/dL (3.5-5.2); Alkaline Phosphatase 237 IU/L (35-105); Anion Gap 12.9 (5-19); Aspartate Amino Transferase 95 U/L (0-32); Blood Urea Nitrogen 10 mg/dL (8-23); Carbon Dioxide 33 mmol/L (22-29); Chloride 100 mmol/L (98-107); Globulin 3.5 g/dL (1.3-4.6); Glomerular Filtration Rate 159.7 mL/min (90-130); Glucose 86 mg/dL (65-115); Osmolality Calculated 289 mOsm/kg (285-295); Potassium 3.9 mmol/L (3.5-5.1); Sodium 142 mmol/L (136-145); Total Bilirubin 0.3 mg/dL (0.15-1.2); Total Protein 6.2 g/dL (6.6-8.7)
[2019-11-10] MEDS: azithromycin 250 mg Tablet 500 MG PO (09:43)
[2019-11-10] MEDS: metoprolol tartrate 25 mg Tablet 12.5 MG PO ×2 (09:44→17:22)
[2019-11-10] MEDS: sodium chloride 0.9% 1,000 ML 75 ML IV (12:18)
--- NOTE | 2019-11-10 12:19 | PM.PN ---
Subjective Subjective: Interval history: AM labs noted, decreased leukocytosis, slight drop in Hg. Down to 2 L NC. Patient seen and examined, quite anxious about test results, continues to feel quite weak generally, has good appetite. Informed this afternoon that COVID-19 testing is negative. Will have PT evaluate. Medications: Reviewed: Yes Medication Review Details: Active Medications Generic Name Dose Route Start Last Admin Trade Name Freq PRN Reason Stop Dose Admin Acetaminophen 650 mg 11/09/19 03:05 Tylenol PO Q6H PRN Mild/Mod Pain Or Temp >/= 101 Albuterol/Ipratrop ium 3 ml 11/09/19 03:15 11/10/19 11:51 Duoneb INHALATION 3 ml Q4H.RESPIRATORY S CH Administration Azithromycin 500 mg 11/09/19 09:00 11/10/19 09:43 Zithromax PO 11/11/19 23:59 500 mg DAILY KRZYSZTOF Administration Protocol Enoxaparin Sodium 40 mg 11/10/19 04:00 11/10/19 04:41 Lovenox SUBCUT 40 mg Q24H KRZYSZTOF Administration Sodium Chloride 1,000 mls @ 75 ml s/hr 11/08/19 23:15 11/10/19 12:18 Sodium Chloride 0.9% IV 75 mls/hr .[id number] KRZYSZTOF Administration Ceftriaxone Sodium 1,000 mg/ 50 mls @ 100 mls/ hr 11/09/19 23:00 11/09/19 22:47 Sodium Chloride IV Infused Q24H KRZYSZTOF Infusion Protocol Metoprolol Tartrat e 12.5 mg 11/09/19 03:10 11/10/19 09:44 Lopressor PO 12.5 mg BID KRZYSZTOF Administration Metoprolol Tartrat e 5 mg 11/09/19 20:03 Metoprolol Tartr ate IV Q4H PRN HEART RATE-HIGH Morphine Sulfate 2 mg 11/09/19 03:11 Morphine IVP Q4H PRN SEVERE PAIN Ondansetron HCl 4 mg 11/08/19 23:05 Zofran IVP Q6H PRN NAUSEA AND VOMITI NG codeine Allergy (Verified 11/09/19 00:24) ALGY-Anaphylaxis Penicillins Adverse Reaction (Mild, Verified 11/09/19 00:24) Unknown Vitals/I&O/Wt Last Vital Signs Temp 98 F 11/10/19 04:00 Pulse 72 11/10/19 12:00 Resp 18 11/10/19 11:54 BP 116/61 11/10/19 07:19 Pulse Ox 98 11/10/19 11:54 11/09/19 11/10/19 11/10/19 22:59 06:59 14:59 Intake Total 957.5 / 2464.167 120 / 2584.167 1120 / 1120 Balance 957.5 / 2464.167 120 / 2584.167 1120 / 1120 Weight last 48 hrs Weight 56.336 kg Weight 58.241 kg Weight 49.895 kg Physical Exam Const: COMMON NORMALS: no apparent distress and oriented x3 GENERAL APPEARANCE: cooperative and comfortable NUTRITIONAL APPEARANCE: cachectic ORIENTATION/CONSCIOUSNESS: Yes awake HENMT: COMMON NORMALS: normocephalic, head/scalp atraumatic, hearing grossly normal bilaterally and moist oral mucous membranes HEAD & SCALP: normocephalic and atraumatic TEETH & GINGIVA: Yes poor dentition (tobacco-stained teeth) Eye: COMMON NORMALS: PERRL, EOMs intact bilaterally and conjunctivae normal CONJUNCTIVA: Yes conjunctivae normal PUPIL: Yes PERRL Neck/C-Spine: COMMON NORMALS: full ROM GENERAL: Yes normal visual inspection and Yes trachea midline Resp: COMMON NORMALS: normal respiratory effort, no retractions and no use of accessory muscles EFFORT & INSPECTION: Yes able to speak in complete sentences and Yes symmetric chest movement AUSCULTATION: diminished lung sounds OTHER: -on 2 L NC Cardio: COMMON NORMALS: regular rate, regular rhythm, S1 normal heart sound, S2 normal heart sound and no murmurs RATE: regular rate RHYTHM: regular rhythm HEART SOUNDS: S1 normal and S2 normal GI: COMMON NORMALS: normal to inspection, nondistended, normoactive bowel sounds, soft to palpation and non-tender PALPATION: Yes soft Extremity: COMMON NORMALS: normal to inspection, full ROM and no clubbing, cyanosis or edema; negative for no pedal edema Neuro: COMMON NORMALS: oriented x3, moves all extremities, no focal motor deficits and no sensory deficits noted Psych: COMMON NORMALS: mental status grossly normal, thought process normal, cooperative, affect normal and speech normal SPEECH: Yes normal speech THOUGHT PROCESS: normal thought process Skin: COMMON NORMALS: no rashes or lesions noted, no jaundice, no petechiae and no mottling GENERAL SKIN EXAM: no rashes or lesions noted Data : 11/10/19 02:54 11/10/19 02:54 Micro: Microbiology 11/08/19 21:53 Urine Culture - Preliminary Urine,Clean Catch 11/09/19 04:20 Gram Stain - Final Sputum - Expectorated Sputum Sputum Culture - Preliminary 11/08/19 20:26 Blood Culture - Preliminary Blood NEGATIVE TO DATE 11/08/19 20:25 Blood Culture - Preliminary Blood NEGATIVE TO DATE A&P Assessment and plan (1) Community acquired pneumonia: -Presented with complaints of productive cough, shortness of breath x 3 weeks -Found to have significant leukocytosis with left shift, hypoxia with oxygen requirement, evidence of right middle and right lower lobe and lingular opacities on imaging. Associated sepsis as evidenced by hypoxia, leukocytosis, tachypnea; resolved tachypnea, decreasing leukocytosis, decreasing oxygen requirement. Noted normal lactic acid and pro-calcitonin levels, elevated CRP. Continue to trend WBC -Continue ceftriaxone and azithromycin (day 2) -Noted elevated d-dimer, CTA negative for PE -Follow-up blood culture and sputum culture, Gram stain polymicrobial -negative for COVID-19 testing, discontinue droplet and contact precautions -Supplemental oxygen as needed -Continue close monitoring of respiratory status Status: Acute Qualifiers: Laterality: right Lung location: unspecified part of lung Qualified Code(s): J18.9 - Pneumonia, unspecified organism Code(s): J18.9 - Pneumonia, unspecified organism (2) COPD (chronic obstructive pulmonary disease): -Likely triggered by pneumonia as noted above -Continue nebulizer treatments -Patient is not oxygen dependent at baseline Status: Chronic Qualifiers: COPD type: COPD with acute exacerbation Qualified Code(s): J44.1 - Chronic obstructive pulmonary disease with (acute) exacerbation Code(s): J44.9 - Chronic obstructive pulmonary disease, unspecified (3) Sinus tachycardia: -Noted to have A. fib/a flutter in the ER, received Cardizem and converted to sinus tachycardia -Rate controlled and hemodynamically stable -Continue to monitor vital signs -Continue telemetry monitoring -Echo: EF=65%, no RWMA -continue low dose BB Status: Acute Code(s): R00.0 - Tachycardia, unspecified (4) Sepsis: -secondary to pneumonia as noted above Status: Acute Qualifiers: Sepsis acute organ dysfunction status: unspecified Sepsis type: sepsis due to unspecified organism Qualified Code(s): A41.9 - Sepsis, unspecified organism Code(s): A41.9 - Sepsis, unspecified organism Additional A&P Information -Chronic smoker -regular diet as tolerated -DVT ppx with Lovenox -Dispo: home -Code status: FULL code Attestations Medical Necessity Statement*: Patient requires hospitalization for continued treatment of right-sided pneumonia, negative COVID-19 testing. Time Spent in Patient Care: 16 - 35 minutes (>than 50% of time spent in counselling and/or direct pt care on unit). Coding Level of Care Code Acute Dyeing Machine Tender for [facility] Fwd Exam Comprehensive Diagnoses Community acquired pneumonia J18.9 Laterality: right Lung location: unspecified part of lung COPD (chronic obstructive pulmonary disease) J44.1 COPD type: COPD with acute exacerbation Sinus tachycardia R00.0 Sepsis A41.9 Sepsis acute organ dysfunction status: unspecified Sepsis type: sepsis due to unspecified organism
[2019-11-10] MEDS: acetaminophen 325 mg Tablet 650 MG PO (17:22)
--- NOTE | 2019-11-10 21:22 | PC.NURSE ---
Dr. Hubbard notified of patient asking for Trazodone. She is taking Trazodone at home.
[2019-11-10] MEDS: trazodone 100 mg Tablet PO (22:08)
[2019-11-10] MEDS: cefTRIAXone 1,000 MG in sodium chloride 0.9% (plus) 50 ML 100 MG IV (22:08)
[2019-11-11] VITALS (19 sets, daily range): BP systolic 98–123; BP diastolic 53–77; PULSE 76–98; RESP 16–33; TEMP 36.6–36.8; O2SAT 92–98
[2019-11-11] MEDS: ipratropium-albuterol 3 mL Neb INHALATION ×7 (00:06→23:46)
--- NOTE | 2019-11-11 00:33 | PC.NURSE ---
When patient coughs, oxygen saturation goes down and heart rate goes up. After she finishes coughing, vital signs go back to normal. Patient states that she becomes very short of breath when she coughs.
[2019-11-11] MEDS: enoxaparin 40 mg/0.4 mL Syringe SUBCUT (03:05)
[2019-11-11 04:13] LABS: Basophils % 0.2 %; Eosinophils # 0.2 10^3/uL (0.0-0.8); Eosinophils % 1.7 %; Hematocrit 33.5 % (37.0-47.0); Hemoglobin 10.2 g/dL (11.5-15.3); Lymphocytes # 2.9 10^3/uL (0.8-4.8); Lymphocytes % 25.3 %; Mean Corpuscular HGB Conc 30.4 g/dL (30.0-36.0); Mean Corpuscular Volume 101.8 fL (81-99); Mean Platelet Volume 9.8 fL (7.4-10.4); Monocytes # 0.9 10^3/uL (0.2-0.9); Monocytes % 7.7 %; Neutrophils # 7.4 10^3/uL (1.8-7.7); Neutrophils % 64.1 %; Nucleated Red Blood Cells % 0 %; Platelet Count 412 10^3/cmm (130-400); Red Blood Count 3.29 10^6/uL (4.1-5.3); Red Cell Distribution Width 13.5 % (12.1-15.1); White Blood Count 11.5 10^3/uL (4.0-10.0)
[2019-11-11 04:33] LABS: Alanine Aminotransferase 56 U/L (0-33); Albumin Level 2.4 g/dL (3.5-5.2); Alkaline Phosphatase 210 IU/L (35-105); Anion Gap 8.1 (5-19); Aspartate Amino Transferase 46 U/L (0-32); Blood Urea Nitrogen 6 mg/dL (8-23); Calcium 8.9 mg/dL (8.5-10.5); Carbon Dioxide 39 mmol/L (22-29); Chloride 101 mmol/L (98-107); Globulin 3.7 g/dL (1.3-4.6); Glomerular Filtration Rate 159.7 mL/min (90-130); Glucose 132 mg/dL (65-115); Osmolality Calculated 296 mOsm/kg (285-295); Potassium 4.1 mmol/L (3.5-5.1); Sodium 144 mmol/L (136-145); Total Bilirubin 0.2 mg/dL (0.15-1.2); Total Protein 6.1 g/dL (6.6-8.7)
[2019-11-11] MEDS: azithromycin 250 mg Tablet 500 MG PO (08:49)
[2019-11-11] MEDS: metoprolol tartrate 25 mg Tablet 12.5 MG PO ×2 (08:49→19:57)
--- NOTE | 2019-11-11 10:50 | PC.RESP ---
Patient given Pulmonary Rehab/Smoking Cessation information.
--- NOTE | 2019-11-11 14:51 | PC.CHAP ---
Pastoral Care Encounter/Spiritual Assessment Type of Contact [] Declined producer visit [] Patient/Family/Request visit [] Outpatient visit [] Follow-up visit [] Physician referral [] Code/Alert [x] Routine visit [] Staff referral [] Actively dying [] Patient sleeping [] Family support [] [] Out of room [] Palliative care [] [] Receiving care in room [] Pre-surgical visit [] Trauma [] Long length of stay [] ICU visit [] Other: Relational/Emotional Strength [x] Patient feels connected with others/family/visitors/staff [] Distress [] Loneliness/isolation [] Abandonment Spirituality of Patient [x] Person of Cony [] Attends Advent of their [place] [] Believes in Prayer [] Reads Bible or Sikh materials [] There are Spiritual issues to be addressed Chief Of Production Interventions [x] Prayer [x] Active listening [x] Non-anxious presence [x] Spiritual/emotional support [] Crisis/trauma care [] Spiritual counseling [] Bereavement support [] Provided bereavement packet [] Provided Bible/devotional materials [] Provided toy/stuffed animal, coloring book to patient or family member [] Provided Communion [] Anointing/[place] [] Salvation [x] Completed spiritual assessment [] Other: Impact on Illness or Injury [] Angry [] Fearful [] Anxious [] Often cries [] Exhaustion [] Unable to work [] Unable to attend amish [] Unable to walk/stand [] Unable to read [] Unable to drive [] Unable to eat/drink [] Unable to sleep [] Unable to be with family [] Patient intubated [] Other: Summary Patient is doing well, no needs at time of visit. Time spent with patient 5 min
--- NOTE | 2019-11-11 15:01 | PC.NURSE ---
patient had pt walking her and made it senior living down the corridor with walker but didnt want to be reliant on it so went the rest of the way without. she was sating at 90 on 3 liters, RT said and he suggested a home 02 eval would be a good idea to get her some for home, she has been getting SOB lately at home. I spoke with Dr. Blanco and she agreed but said shes put it in tomorrow once she makes sure she is actually ging home tomorrow so it will be covered by insurance.
--- NOTE | 2019-11-11 18:18 | PC.SOCIAL ---
IM follow up explained, signed and timed. Patient given a copy
--- NOTE | 2019-11-11 19:27 | P.PN_ITS ---
Subjective Subjective: Interval history: Patient seen and examined, in good spirits, resting in bed, attempts at ambulating to the bathroom earlier today left her weak, unsteady and out of breath, PT in the room with her. She is on 2 L NC, dyspneic and slight desaturation with quick recovery on exertion. Happy to be off isolation and notified of negative COVID-19 test results. Medications: Reviewed: Yes Medication Review Details: Active Medications Generic Name Dose Route Start Last Admin Trade Name Freq PRN Reason Stop Dose Admin Acetaminophen 650 mg 11/09/19 03:05 11/10/19 17:22 Tylenol PO 650 mg Q6H PRN Administration Mild/Mod Pain Or Temp >/= 101 Albuterol/Ipratrop ium 3 ml 11/09/19 03:15 11/11/19 15:34 Duoneb INHALATION 3 ml Q4H.RESPIRATORY S CH Administration Azithromycin 500 mg 11/09/19 09:00 11/11/19 08:49 Zithromax PO 11/11/19 23:59 500 mg DAILY KRZYSZTOF Administration Protocol Enoxaparin Sodium 40 mg 11/10/19 04:00 11/11/19 03:05 Lovenox SUBCUT 40 mg Q24H KRZYSZTOF Administration Ceftriaxone Sodium 1,000 mg/ 50 mls @ 100 mls/ hr 11/09/19 23:00 11/10/19 22:08 Sodium Chloride IV 100 mls/hr Q24H KRZYSZTOF Administration Protocol Metoprolol Tartrat e 12.5 mg 11/09/19 03:10 11/11/19 08:49 Lopressor PO 12.5 mg BID KRZYSZTOF Administration Metoprolol Tartrat e 5 mg 11/09/19 20:03 Metoprolol Tartr ate IV Q4H PRN HEART RATE-HIGH Morphine Sulfate 2 mg 11/09/19 03:11 Morphine IVP Q4H PRN SEVERE PAIN Ondansetron HCl 4 mg 11/08/19 23:05 Zofran IVP Q6H PRN NAUSEA AND VOMITI NG Trazodone HCl 100 mg 11/10/19 22:00 11/10/19 22:08 Desyrel PO 100 mg BEDTIME KRZYSZTOF Administration codeine Allergy (Verified 11/09/19 00:24) ALGY-Anaphylaxis Penicillins Adverse Reaction (Mild, Verified 11/09/19 00:24) Unknown Vitals/I&O/Wt Last Vital Signs Temp 98.0 F 11/11/19 15:17 Pulse 80 11/11/19 15:38 Resp 20 H 11/11/19 15:36 BP 103/53 11/11/19 15:17 Pulse Ox 95 11/11/19 15:36 11/11/19 11/11/19 11/11/19 06:59 14:59 22:59 Intake Total 300 / 2160 360 / 360 240 / 600 Balance 300 / 2160 360 / 360 240 / 600 Weight last 48 hrs Weight 57.107 kg Weight 56.336 kg Physical Exam Const: COMMON NORMALS: no apparent distress and oriented x3 GENERAL APPEARANCE: cooperative and comfortable NUTRITIONAL APPEARANCE: cachectic ORIENTATION/CONSCIOUSNESS: Yes awake HENMT: COMMON NORMALS: normocephalic, head/scalp atraumatic, hearing grossly normal bilaterally and moist oral mucous membranes HEAD & SCALP: normocephalic and atraumatic TEETH & GINGIVA: Yes poor dentition (tobacco- stained teeth) Eye: COMMON NORMALS: PERRL, EOMs intact bilaterally and conjunctivae normal CONJUNCTIVA: Yes conjunctivae normal PUPIL: Yes PERRL Neck/C-Spine: COMMON NORMALS: full ROM GENERAL: Yes normal visual inspection and Yes trachea midline Resp: COMMON NORMALS: normal respiratory effort, no retractions and no use of accessory muscles EFFORT & INSPECTION: Yes able to speak in complete sentences and Yes symmetric chest movement AUSCULTATION: diminished lung sounds OTHER: -on 2 L NC Cardio: COMMON NORMALS: regular rate, regular rhythm, S1 normal heart sound, S2 normal heart sound and no murmurs RATE: regular rate RHYTHM: regular rhythm HEART SOUNDS: S1 normal and S2 normal GI: COMMON NORMALS: normal to inspection, nondistended, normoactive bowel sounds, soft to palpation and non-tender PALPATION: Yes soft Extremity: COMMON NORMALS: normal to inspection, full ROM and no clubbing, cyanosis or edema; negative for no pedal edema Neuro: COMMON NORMALS: oriented x3, moves all extremities, no focal motor deficits and no sensory deficits noted Psych: COMMON NORMALS: mental status grossly normal, thought process normal, cooperative, affect normal and speech normal SPEECH: Yes normal speech THOUGHT PROCESS: normal thought process Skin: COMMON NORMALS: no rashes or lesions noted, no jaundice, no petechiae and no mottling GENERAL SKIN EXAM: no rashes or lesions noted Data : 11/11/19 03:50 11/11/19 03:50 Micro: Microbiology 11/08/19 21:53 Urine Culture - Final Urine,Clean Catch 11/09/19 04:20 Gram Stain - Final Sputum - Expectorated Sputum Sputum Culture - Final A&P Assessment and plan (1) Community acquired pneumonia: -Presented with complaints of productive cough, shortness of breath x 3 weeks -Found to have significant leukocytosis with left shift, hypoxia with oxygen requirement, evidence of right middle and right lower lobe and lingular opacities on imaging. Associated sepsis as evidenced by hypoxia, leukocytosis, tachypnea; resolved tachypnea, decreasing leukocytosis, decreasing oxygen requirement. Noted normal lactic acid and pro-calcitonin levels, elevated CRP. Continue to trend WBC -Continue ceftriaxone and azithromycin (day 2) -Noted elevated d-dimer, CTA negative for PE -blood culture prelim negative; sputum culture-mixed priti, Gram stain po lymicrobial -negative for COVID-19 testing, off isolation precautions -Supplemental oxygen as needed; will need home oxygen evaluation prior to d/c -Continue close monitoring of respiratory status Status: Acute Qualifiers: Laterality: right Lung location: unspecified part of lung Qualified Code(s): J18.9 - Pneumonia, unspecified organism Code(s): J18.9 - Pneumonia, unspecified organism (2) COPD (chronic obstructive pulmonary disease): -Likely triggered by pneumonia as noted above -Continue nebulizer treatments -Patient is not oxygen dependent at baseline Status: Chronic Qualifiers: COPD type: COPD with acute exacerbation Qualified Code(s): J44.1 - Chronic obstructive pulmonary disease with (acute) exacerbation Code(s): J44.9 - Chronic obstructive pulmonary disease, unspecified (3) Sinus tachycardia: -Noted to have A. fib/a flutter in the ER, received Cardizem and converted to sinus tachycardia -Rate controlled and hemodynamically stable -Continue to monitor vital signs -Continue telemetry monitoring -Echo: EF=65%, no RWMA -continue low dose BB Status: Acute Code(s): R00.0 - Tachycardia, unspecified (4) Sepsis: -secondary to pneumonia as noted above Status: Acute Qualifiers: Sepsis type: sepsis due to unspecified organism Sepsis acute organ dysfunction status: unspecified Qualified Code(s): A41.9 - Sepsis, unspecified organism Code(s): A41.9 - Sepsis, unspecified organism Additional A&P Information -Chronic smoker -PT evaluation appreciated; d/c home recommended -regular diet as tolerated -DVT ppx with Lovenox -Dispo: home -Code status: FULL code Attestations Medical Necessity Statement*: Patient requires hospitalization for continued antibiotic treatment for pneumonia, with associated generalized weakness/deconditioning. Time Spent in Patient Care: 16 - 35 minutes (>than 50% of time spent in counselling and/or direct pt care on unit) . Coding Level of Care Code Acute Retail Asset Protection Specialist for [facility] Fwd Diagnoses Community acquired pneumonia J18.9 Laterality: right Lung location: unspecified part of lung COPD (chronic obstructive pulmonary disease) J44.1 COPD type: COPD with acute exacerbation Sinus tachycardia R00.0 Sepsis A41.9 Sepsis type: sepsis due to unspecified organism Sepsis acute organ dysfunction status: unspecified
[2019-11-11] MEDS: trazodone 100 mg Tablet PO (20:54)
[2019-11-11] MEDS: cefTRIAXone 1,000 MG in sodium chloride 0.9% (plus) 50 ML 100 MG IV (22:21)
[2019-11-12] VITALS (14 sets, daily range): BP systolic 98–100; BP diastolic 51–61; PULSE 69–94; RESP 13–28; TEMP 36.6–36.8; O2SAT 86–96
[2019-11-12] MEDS: ipratropium-albuterol 3 mL Neb INHALATION ×4 (03:42→15:57)
[2019-11-12] MEDS: enoxaparin 40 mg/0.4 mL Syringe SUBCUT (04:57)
[2019-11-12 05:05] LABS: Basophils % 0.3 %; Eosinophils # 0.2 10^3/uL (0.0-0.8); Eosinophils % 1.8 %; Hematocrit 35.9 % (37.0-47.0); Lymphocytes # 2.9 10^3/uL (0.8-4.8); Mean Corpuscular HGB Conc 30.6 g/dL (30.0-36.0); Mean Corpuscular Hemoglobin 31.5 pg (28.0-34.0); Mean Corpuscular Volume 102.9 fL (81-99); Mean Platelet Volume 9.9 fL (7.4-10.4); Monocytes # 0.9 10^3/uL (0.2-0.9); Monocytes % 8.6 %; Neutrophils # 5.9 10^3/uL (1.8-7.7); Neutrophils % 59.6 %; Nucleated Red Blood Cells % 0 %; Platelet Count 488 10^3/cmm (130-400); Red Blood Count 3.49 10^6/uL (4.1-5.3); Red Cell Distribution Width 13.7 % (12.1-15.1); White Blood Count 9.9 10^3/uL (4.0-10.0)
[2019-11-12] MEDS: metoprolol tartrate 25 mg Tablet 12.5 MG PO ×2 (10:09→17:42)
--- NOTE | 2019-11-12 11:45 | PM.DCS ---
Discharge Providers Date of Admission: 11/08/19 23:10 Date of Discharge: November 12, 2019 Attending Provider at Admission: Nicole Hubbard MD Attending Provider at Discharge: Katja Blanco MD Diagnoses at Discharge Discharge Diagnosis (1) Community acquired pneumonia: Status: Acute Problem details: -Presented with complaints of productive cough, shortness of breath x 3 weeks -Found to have significant leukocytosis with left shift, hypoxia with oxygen requirement, evidence of right middle and right lower lobe and lingular opacities on imaging. Associated sepsis as evidenced by hypoxia, leukocytosis, tachypnea; resolved tachypnea, decreasing leukocytosis, decreasing oxygen requirement. Noted normal lactic acid and pro-calcitonin levels, elevated CRP. Leukocytosis resolved -Continue ceftriaxone and azithromycin (day 2); will discharge on Azithromycin x 4 days for completion of treatment -Noted elevated d-dimer, CTA negative for PE -blood culture prelim negative; sputum culture-mixed priti, Gram stain polymicrobial -negative for COVID-19 testing, off isolation precautions -Supplemental oxygen as needed; will need home oxygen evaluation prior to d/c -Continue close monitoring of respiratory status Qualifiers: Laterality: right Lung location: unspecified part of lung Qualified Code(s): J18.9 - Pneumonia, unspecified organism (2) COPD (chronic obstructive pulmonary disease): Status: Chronic Problem details: -Likely triggered by pneumonia as noted above -Continue nebulizer treatments -Patient is not oxygen dependent at baseline Qualifiers: COPD type: COPD with acute exacerbation Qualified Code(s): J44.1 - Chronic obstructive pulmonary disease with (acute) exacerbation (3) Sinus tachycardia: Status: Resolved Problem details: -Noted to have A. fib/a flutter in the ER, received Cardizem and converted to sinus tachycardia -Rate controlled and hemodynamically stable -Continue to monitor vital signs -Continue telemetry monitoring -Echo: EF=65%, no RWMA -continue low dose BB (4) Sepsis: Status: Resolved Problem details: -secondary to pneumonia as noted above Qualifiers: Sepsis acute organ dysfunction status: unspecified Sepsis type: sepsis due to unspecified organism Qualified Code(s): A41.9 - Sepsis, unspecified organism Other Information Additional DC diagnoses/information: -Chronic smoker Reason for Visit Reason for Visit: Reason For Visit: cough/sob Hospital Course Hospital Course: Patient was admitted to the cardiac stepdown unit and placed on isolation precautions due to need for COVID-19 testing in addition to antibiotic treatment as she was found to have pneumonia on imaging. She had significant leukocytosis with neutrophilic predominance, hypoxia, tachypnea and intermittent tachycardia concerning for sepsis. Blood cultures have been negative, screening for influenza was negative as well. COVID-19 testing negative and isolation precautions were discontinued. She had intermittent episodes of A. fib/a flutter that responded well to beta-inder. She is currently in sinus rhythm and rate controlled. Vital signs are stable though she has been intermittently tachypneic particularly with exertion. She has required supplemental oxygen since admission which she does not use at baseline so has had a home oxygen evaluation done and appropriate DME arranged; she qualifies for 3 L NC. She has consistently been afebrile and oxygen requirement has been trending down. Leukocytosis has since resolved. She will be discharged on oral antibiotics to complete her treatment course. Patient had some degree of deconditioning likely secondary to acute infection, was seen by physical therapy and cleared for discharge home with home exercise program. Incidentally noted to have elevated liver function tests that this have since trended down. Discharge Summary: -Patient to follow-up with primary care physician within 1 week Physical Exam Const: COMMON NORMALS: no apparent distress and oriented x3 GENERAL APPEARANCE: cooperative and comfortable NUTRITIONAL APPEARANCE: cachectic ORIENTATION/CONSCIOUSNESS: Yes awake HENMT: COMMON NORMALS: normocephalic, head/scalp atraumatic, hearing grossly normal bilaterally and moist oral mucous membranes HEAD & SCALP: normocephalic and atraumatic TEETH & GINGIVA: Yes poor dentition (tobacco-stained teeth) Eye: COMMON NORMALS: PERRL, EOMs intact bilaterally and conjunctivae normal CONJUNCTIVA: Yes conjunctivae normal PUPIL: Yes PERRL Neck/C-Spine: COMMON NORMALS: full ROM GENERAL: Yes normal visual inspection and Yes trachea midline Resp: COMMON NORMALS: normal respiratory effort, no retractions and no use of accessory muscles EFFORT & INSPECTION: Yes able to speak in complete sentences and Yes symmetric chest movement AUSCULTATION: diminished lung sounds OTHER: -on 2 L NC Cardio: COMMON NORMALS: regular rate, regular rhythm, S1 normal heart sound, S2 normal heart sound and no murmurs RATE: regular rate RHYTHM: regular rhythm HEART SOUNDS: S1 normal and S2 normal GI: COMMON NORMALS: normal to inspection, nondistended, normoactive bowel sounds, soft to palpation and non-tender PALPATION: Yes soft Extremity: COMMON NORMALS: normal to inspection, full ROM and no clubbing, cyanosis or edema; negative for no pedal edema Neuro: COMMON NORMALS: oriented x3, moves all extremities, no focal motor deficits and no sensory deficits noted Psych: COMMON NORMALS: mental status grossly normal, thought process normal, cooperative, affect normal and speech normal SPEECH: Yes normal speech THOUGHT PROCESS: normal thought process Skin: COMMON NORMALS: no rashes or lesions noted, no jaundice, no petechiae and no mottling GENERAL SKIN EXAM: no rashes or lesions noted Discharge Data Data Completed and Pending: Completed Studies During Hospitalization Category Date Time Status CT angio chest PE protcl [id number] Stat Cat Scan 11/08/19 22:51 Completed XR chest 1V agustín ble [id number] Urgent Exams 11/08/19 20:15 Completed CV echo complete* [id number] Routine Ultrasound 11/09/19 03:09 Completed Pending at discharge Category Date Time Status Blood Culture Sta t Lab 11/08/19 20:26 Results Labs from last 24 hours 11/12/19 04:28 WBC 9.9 RBC 3.49 L Hgb 11.0 L Hct 35.9 L MCV 102.9 H MCH 31.5 MCHC 30.6 RDW 13.7 Plt Count 488 H MPV 9.9 Neut % (Auto) 59.6 Lymph % (Auto) 29.0 Hartley % (Auto) 8.6 Eos % (Auto) 1.8 Baso % (Auto) 0.3 Neut # (Auto) 5.9 Lymph # (Auto) 2.9 Hartley # (Auto) 0.9 Eos # (Auto) 0.2 Baso # (Auto) 0.0 Nucleated RBC % (a uto) 0 Nucleated RBCs # 0.0 Vitals: Last Vital Signs Temp 98.1 F 11/12/19 11:05 Pulse 80 11/12/19 11:05 Resp 27 H 11/12/19 11:05 BP 98/61 11/12/19 11:05 Pulse Ox 92 11/12/19 11:05 Discharge Plan Discharge Patient Disposition: Home, Self-Care Condition: Stable Prescriptions: New metoprolol tartrate 25 mg Tablet 12.5 mg PO BID 30 Days Qty: 30 RF: 0 azithromycin 250 mg tablet 250 mg PO DAILY 4 Days Qty: 4 RF: 0 Continued trazodone 100 mg Tablet 100 mg PO BEDTIME RF: 0 Discharge Orders: Discharge Order (Routine); Ordered 11/12/19 Ordered By: Katja Blanco Other Ambulatory Orders: DME: Oxygen (Order) Location: None Selected Ordered By: Katja Blanco Referrals: Petey Jarvis [Family Provider] - 4-7 days ([facility] follow up to be seen in 4 to 7 days. If you don't hear from them by Thursday afternoon, please call them at [phone]) Discharge Diet: Regular Discharge Activity: Resume usual activity and Increase activity as tolerated Discharge Attestations Time Spent in Discharge Care*: greater than 30 min Specific Discharge Activities: Specific discharge activities: educating patient, educating and/or supporting family/caregiver, discussing with case specialist/social workers/dc planners, documenting/other paperwork and evaluating patient/reviewing data Status at Discharge: Behavioral status at discharge: cooperative, Functional status at discharge: independent ambulation Overall status at discharge: patient is back to baseline Quality Metrics Clinical Quality Measures During this hospital stay, did patient experience: None Coding Level of Care Code Acute Client Executive for [facility] Fwd Exam Comprehensive Diagnoses Community acquired pneumonia J18.9 Laterality: right Lung location: unspecified part of lung COPD (chronic obstructive pulmonary disease) J44.1 COPD type: COPD with acute exacerbation Sinus tachycardia R00.0 Sepsis A41.9 Sepsis acute organ dysfunction status: unspecified Sepsis type: sepsis due to unspecified organism
--- NOTE | 2019-11-12 17:46 | PC.NURSE ---
Patients oxygen just arrived [facility], sha joined her and they are being escorted via wheelchair to front entrance to go [place] by personal vehicle. patient was educated on pneumonia, copd, and given the pneumonia stoplight, questions answered and patient read over material verbally acknowledged understanding. iv removed intact, covered with 2x2 gauze and coban.
== END 2019-11-12 17:45 | disposition home or self-care (01) | DRG 871 ==
LOC: ER 21:04 → CSU 23:33
PROVIDERS: Physician Assistant; Admitting Provider Student in an Organized Health Care Education/Training Program; Emergency Provider Family Medicine; Family Provider Family Medicine; Visit Provider Family Medicine
DX: A41.9 Sepsis, unspecified organism (principal); J18.9 Pneumonia, unspecified organism; J44.1 Chronic obstructive pulmonary disease with (acute) exacerbation; F17.210 Nicotine dependence, cigarettes, uncomplicated; Z79.899 Other long term (current) drug therapy; Z99.81 Dependence on supplemental oxygen
CPT/HCPCS: 12345; 36415; 71045; 71275; 80048; 80053; 81001; 82040; 82247; 83605; 83735; 83880; 84075; 84080; 84145; 84155; 84443; 84450; 84484; 85025; 85378; 86140; 87040; 87070; 87086; 87205; 87635; 87804; 93005; 93010; 93306; 94640; 94664; 96372; 96375; 97110; 97116; 97161; 99284; A9270; J0456; J0696; J1650; J3490; J7030; J7050; Q0144; Q9967

== ENCOUNTER 2020-02-09 09:58 | Outpatient (CLI) | payer OTHER, SELFPAY ==
--- NOTE | 2020-02-09 10:20 | MM_ITS ---
WS: [id number] BILATERAL DIGITAL SCREENING MAMMOGRAM WITH CAD CLINICAL INFORMATION: SCREENING HISTORY: Screening mammogram. No current complaints. COMPARISON: January 08, 2018 TECHNIQUE: Bilateral CC and MLO. FINDINGS: The breast are composed of extremely dense tissue, which can limit the detection of small underlying mass lesions. No suspicious focal mass, asymmetry, calcifications, or architectural distortion. No ev idence of malignancy. Dystrophic and lucent centered calcifications. MM/[place] [id number] IMPRESSION: BI-RADS: 2-Benign FOLLOW UP: 1 Year Follow-up Recommend return to annual screening mammography.
== END 2020-02-09 09:59 | disposition home or self-care (01) ==
LOC: RADSHAW 10:03
PROVIDERS: PCP Nurse Practitioner; Visit Provider Nurse Practitioner
DX: Z12.31 Encounter for screening mammogram for malignant neoplasm of breast (principal)
CPT/HCPCS: 77067

== ENCOUNTER 2020-08-17 13:59 | Inpatient (IN) | payer OTHER, MEDICARE, SELFPAY ==
[2020-08-17] VITALS (18 sets, daily range): BP systolic 83–112; BP diastolic 54–78; PULSE 137–155; RESP 12–44; O2SAT 90–100; BMI 25.0
--- NOTE | 2020-08-17 14:04 | XRR_ITS ---
PROCEDURE INFORMATION: Exam: XR Chest, 1 View Exam date and time: 08/17/2020 3:01 PM Age: 65 years old Clinical indication: Fever and shortness of breath and other: AMS; Patient HX: Short of breath, fever, AMS; Additional info: SOB, TECHNIQUE: Imaging protocol: XR of the chest Views: 1 view. COMPARISON: CR XR chest 1V portable [id number] 11/08/2019 8:37 PM FINDINGS: Lungs: Extensive left lung consolidation with relative sparing at the apex. Patchy areas of right basilar consolidation. Pleural space: Unremarkable. No pleural effusion. No pneumothorax. Heart/Mediastinum: Unremarkable. No cardiomegaly. Bones/joints: Unremarkable. XR/XR chest 1V portable [id number] IMPRESSION: Left greater than right lung consolidations.
--- NOTE | 2020-08-17 14:10 | ED_ITS ---
HPI - SOB/Dyspnea General: Chief Complaint: Altered Mental Status Stated Complaint: AMS, SHORT OF BREATH, FEVER Time Seen by Provider: 08/17/20 14:03 Source: family and EMS Mode of arrival: EMS Limitations: altered mental status History of Present Illness: HPI Narrative: 65-year-old female brought in by EMS after her found her to be confused, weak, and very short of breath. She had started to run a fever last night and not felt well, initially she seemed better this morning, but then when she got up to go walk to the bathroom she collapsed, he did not witness her fall but found her on the floor when he went in to check on her. When EMS arrived her O2 sats were in the 60s on room air. On a nonrebreather with albuterol, she came up to the mid to high 90s. She has a history of paroxysmal tachycardia, has been regularly taking her metoprolol twice daily. No other recent medication changes. She does have underlying COPD, but does not use home oxygen. MD elicited complaint: shortness of breath Pertinent past history: COPD Associated symptoms: Reports fever(s) Review of Systems General: Reports: 10 or more systems reviewed and unremarkable except in HPI and below and ROS unobtainable due to medical condition Const: Reports: fever(s), chills, body aches, change in appetite, fatigue and malaise FOR[facility]LY [facility] ED PFSH: Medical History COPD (chronic obstructive pulmonary disease) -Likely triggered by pneumonia as noted above -Continue nebulizer treatments -Patient is not oxygen dependent at baseline Surgical History Hx of hysterectomy Social History Smoking and tobacco status: current every day smoker Physical Exam Const: EXAM LIMITATIONS: altered mental status GENERAL APPEARANCE: in distress, lethargic and ill appearing NUTRITIONAL APPEARANCE: thin ORIENTATION/CONSCIOUSNESS: Yes awake, Yes oriented to person, Yes confused and Yes lethargic; not oriented to place and not oriented to time HENMT: COMMON NORMALS: normocephalic and Normal external nose present HEAD & SCALP: normocephalic and contusion (Above right eyebrow) right frontal FACE & SINUS: normal facial exam and face symmetric NOSE: Normal external nose present Eye: COMMON NORMALS: Equal, round and reactive pupils present SCLERA: sclerae normal PUPIL: Yes Equal, round and reactive pupils present Neck/C-Spine: COMMON NORMALS: supple and no meningeal signs GENERAL: Yes normal visual inspection and Yes trachea midline Chest: COMMONS NORMALS: normal inspection of the chest Breast/axilla inspection: Yes no chest deformity, asymmetry, normal contours, no nodules, masses, tenderness Resp: EFFORT & INSPECTION: Yes tachypneic, Yes respiratory distress, Yes labored, Yes audible wheezes and No tracheal deviation AUSCULTATION: crackles, rales bilateral, rhonchi lower bilaterally and bronchovesicular breath sounds Cardio: RATE: tachycardic RHYTHM: abnormal rhythm GI: COMMON NORMALS: Soft to palpation PALPATION: Yes Soft to palpation, No Tenderness to palpation present (GI), No Guarding due to palpation present (GI), No Rigid due to palpation and No Pulsatile mass present Extremity: COMMON NORMALS: full ROM and no pedal edema Neuro: SENSORIUM/ORIENTATION: Yes oriented to person, No oriented to place, No oriented to time, Yes Orientation impaired and Yes lethargic MENINGEAL SIGNS: Yes no meningeal signs CRANIAL NERVES: Yes CN normal except as noted Skin: COMMON NORMALS: no rashes or lesions noted and no wounds GENERAL SKIN EXAM: no rashes or lesions noted Course Vital Signs: Vital signs: Vital Signs Pulse Rate 140 H 08/17/20 19:11 Respiratory Rate 37 H 08/17/20 16:50 Blood Pressure 106/78 08/17/20 16:50 Pulse Oximetry 95 08/17/20 19:11 MDM - SOB/Dyspnea MDM Narrative: Medical decision making narrative: This is a 65-year-old female presenting with acute hypoxic respiratory failure, and septic shock. Tachycardic, hypotensive, initially EKG showed possible atrial flutter which she has had in the past, she had no improvement with IV diltiazem. No real improve ment with fluid either. Chest x-ray shows extensive bilateral infiltrates especially on the left. CT further demonstrates consolidative process on the left in addition to other patchy bilateral infiltrates consistent with multifocal pneumonia. She was treated early on with broad-spectrum antibiotics, Covid swab negative. WBC count 30 with elevated CRP and favoring acute bacterial pneumonia as the etiology. Cultures were drawn prior to antibiotic administration. started on Bipap which improved her WOB. repeat ABG pending. continues to be tachycardic despite fluid bolus, and earlier trial of diltiazem for what looked like a. flutter.repeat EKGs were more consistent with sinus tachycardia. spoke with Dr Rayo, [facility], he accepts the admission to ICU Medical Records: Attestation: I reviewed the patient's medical records. Lab Data: Attestation: I reviewed the patient's lab results. Labs: Lab Results 08/17/20 08/17/20 08/17/20 Range/Units 14:12 14:13 14:19 WBC (4.0-10.0) 10^3/ uL RBC (4.1-5.3) 10^6/u L Hgb (11.5-15.3) g/dL Hct (37.0-47.0) % MCV (81-99) fL MCH (28.0-34.0) pg MCHC (30.0-36.0) g/dL RDW (12.1-15.1) % Plt Count (130-400) 10^3/c mm MPV (7.4-10.4) fL Neut % (Auto) % Lymph % (Auto) % [place] % (Auto) % Eos % (Auto) % Baso % (Auto) % Neut # (Auto) (1.8-7.7) 10^3/u L Lymph # (Auto) (0.8-4.8) 10^3/u L [place] # (Auto) (0.2-0.9) 10^3/u L Eos # (Auto) (0.0-0.8) 10^3/u L Baso # (Auto) (0.0-0.1) 10^3/u L Nucleated RBC % (a uto) % Nucleated RBCs # /100WBC PT (12.1-14.9) SECO NDS INR (0.8-1.2) Specimen Type Arterial Sample Site Brachial, right ABG pH 7.35 (7.35-7.45) ABG pCO2 57.4 H (35-45) mmHg ABG pO2 58.2 L (80.0-100.0) mmH g ABG HCO3 31.5 H (22-26) mmol/L ABG O2 Saturation 89.4 ABG Base Excess 4.6 H (-2.0-2.0) mmol/ L Escobar Test N/a A-a O2 Gradient 17.0 H (5-10) mmHg Hematocrit 35.4 L (37-47) % Hgb O2 Saturation 87.5 L (95-100) % Carboxyhemoglobin 1.4 (0.4-20.1) %THgb Methemoglobin 0.8 (0.4-1.5) % Total Hemoglobin 11.5 L (12-16) g/dL Sodium 132.0 (131-143) mmol/L Potassium 3.2 L (3.5-5.0) mmol/L Glucose 186.0 H (70-115) mg/dL Ionized Calcium 1.1 (1.1-1.4) mmol/L O2 Delivery Device Nc O2 Liters/Min 4.0 % FiO2 36.0 % [employer] Manager ID Amh Chloride (98-107) mmol/L Carbon Dioxide (22-29) mmol/L Anion Gap (5-19) BUN (8-23) mg/dL Creatinine (0.5-0.9) mg/dL GFR Calculation (90-130) mL/min POC Glucose 198 H (70-110) mg/dL Calculated Osmolal ity (285-295) mOsm/k g Lactate (0.5-2.2) mmol/L Calcium (8.5-10.5) mg/dL Magnesium (1.7-2.3) mg/dL Total Bilirubin (0.15-1.2) mg/dL AST (0-32) U/L ALT (0-33) U/L Alkaline Phosphata se (35-105) IU/L C-Reactive Protein (0.0-4.9) mg/L NT-Pro-B Natriuret Pep (0-125) pg/mL Total Protein (6.6-8.7) g/dL Albumin (3.5-5.2) g/dL Globulin (1.3-4.6) g/dL Urine Color (Yellow) Urine Appearance (CLEAR) Urine pH (5-7) Ur Specific Gravit y (1.005-1.030) Urine Protein (Negative) Urine Glucose (UA) (Normal) Urine Ketones (Negative) Urine Blood (Negative) Urine Nitrate (Negative) Urine Bilirubin (Negative) Urine Urobilinogen (Negative) mg/dL Ur Leukocyte Maddi ase (Negative) Urine RBC (0-2) /hpf Urine WBC (0-5) /hpf Ur Squamous Epith Cells (0-5) /hpf Amorphous Sediment Urine Bacteria (NONE) /hpf SARS-CoV-2 Ag (Rap id) Negative (Negative) 08/17/20 08/17/20 08/17/20 Range/Units 14:47 14:47 14:47 WBC 30.1 H (4.0-10.0) 10^3/ uL RBC 3.92 L (4.1-5.3) 10^6/u L Hgb 11.6 (11.5-15.3) g/dL Hct 37.0 (37.0-47.0) % MCV 94.4 (81-99) fL MCH 29.6 (28.0-34.0) pg MCHC 31.4 (30.0-36.0) g/dL RDW 14.5 (12.1-15.1) % Plt Count 505 H (130-400) 10^3/c mm MPV 10.5 H (7.4-10.4) fL Neut % (Auto) 95.2 % Lymph % (Auto) 2.5 % [place] % (Auto) 1.0 % Eos % (Auto) 0.1 % Baso % (Auto) 0.1 % Neut # (Auto) 28.65 H (1.8-7.7) 10^3/u L Lymph # (Auto) 0.7 L (0.8-4.8) 10^3/u L [place] # (Auto) 0.3 (0.2-0.9) 10^3/u L Eos # (Auto) 0.0 (0.0-0.8) 10^3/u L Baso # (Auto) 0.0 (0.0-0.1) 10^3/u L Nucleated RBC % (a uto) 0 % Nucleated RBCs # 0.0 /100WBC PT (12.1-14.9) SECO NDS INR (0.8-1.2) Specimen Type Sample Site ABG pH (7.35-7.45) ABG pCO2 (35-45) mmHg ABG pO2 (80.0-100.0) mmH g ABG HCO3 (22-26) mmol/L ABG O2 Saturation ABG Base Excess (-2.0-2.0) mmol/ L Escobar Test A-a O2 Gradient (5-10) mmHg Hematocrit (37-47) % Hgb O2 Saturation (95-100) % Carboxyhemoglobin (0.4-20.1) %THgb Methemoglobin (0.4-1.5) % Total Hemoglobin (12-16) g/dL Sodium 133 L (131-143) mmol/L Potassium 3.3 L (3.5-5.0) mmol/L Glucose 187 H (70-115) mg/dL Ionized Calcium (1.1-1.4) mmol/L O2 Delivery Device O2 Liters/Min % FiO2 % [employer] Manager ID Chloride 92 L (98-107) mmol/L Carbon Dioxide 30 H (22-29) mmol/L Anion Gap 14.3 (5-19) BUN 23 (8-23) mg/dL Creatinine 0.7 (0.5-0.9) mg/dL GFR Calculation 83.5 L (90-130) mL/min POC Glucose (70-110) mg/dL Calculated Osmolal ity 285 (285-295) mOsm/k g Lactate 4.1 H* (0.5-2.2) mmol/L Calcium 8.1 L (8.5-10.5) mg/dL Magnesium 2.3 (1.7-2.3) mg/dL Total Bilirubin 0.3 (0.15-1.2) mg/dL AST 156 H (0-32) U/L ALT 61 H (0-33) U/L Alkaline Phosphata se 185 H (35-105) IU/L C-Reactive Protein 458.3 H (0.0-4.9) mg/L NT-Pro-B Natriuret Pep 1425 H (0-125) pg/mL Total Protein 6.5 L (6.6-8.7) g/dL Albumin 2.3 L (3.5-5.2) g/dL Globulin 4.2 (1.3-4.6) g/dL Urine Color (Yellow) Urine Appearance (CLEAR) Urine pH (5-7) Ur Specific Gravit y (1.005-1.030) Urine Protein (Negative) Urine Glucose (UA) (Normal) Urine Ketones (Negative) Urine Blood (Negative) Urine Nitrate (Negative) Urine Bilirubin (Negative) Urine Urobilinogen (Negative) mg/dL Ur Leukocyte Maddi ase (Negative) Urine RBC (0-2) /hpf Urine WBC (0-5) /hpf Ur Squamous Epith Cells (0-5) /hpf Amorphous Sediment Urine Bacteria (NONE) /hpf SARS-CoV-2 Ag (Rap id) (Negative) 08/17/20 08/17/20 Range/Units 14:47 16:46 WBC (4.0-10.0) 10^3/ uL RBC (4.1-5.3) 10^6/u L Hgb (11.5-15.3) g/dL Hct (37.0-47.0) % MCV (81-99) fL MCH (28.0-34.0) pg MCHC (30.0-36.0) g/dL RDW (12.1-15.1) % Plt Count (130-400) 10^3/c mm MPV (7.4-10.4) fL Neut % (Auto) % Lymph % (Auto) % [place] % (Auto) % Eos % (Auto) % Baso % (Auto) % Neut # (Auto) (1.8-7.7) 10^3/u L Lymph # (Auto) (0.8-4.8) 10^3/u L [place] # (Auto) (0.2-0.9) 10^3/u L Eos # (Auto) (0.0-0.8) 10^3/u L Baso # (Auto) (0.0-0.1) 10^3/u L Nucleated RBC % (a uto) % Nucleated RBCs # /100WBC PT 14.80 (12.1-14.9) SECO NDS INR 1.12 (0.8-1.2) Specimen Type Sample Site ABG pH (7.35-7.45) ABG pCO2 (35-45) mmHg ABG pO2 (80.0-100.0) mmH g ABG HCO3 (22-26) mmol/L ABG O2 Saturation ABG Base Excess (-2.0-2.0) mmol/ L Escobar Test A-a O2 Gradient (5-10) mmHg Hematocrit (37-47) % Hgb O2 Saturation (95-100) % Carboxyhemoglobin (0.4-20.1) %THgb Methemoglobin (0.4-1.5) % Total Hemoglobin (12-16) g/dL Sodium (131-143) mmol/L Potassium (3.5-5.0) mmol/L Glucose (70-115) mg/dL Ionized Calcium (1.1-1.4) mmol/L O2 Delivery Device O2 Liters/Min % FiO2 % [employer] Manager ID Chloride (98-107) mmol/L Carbon Dioxide (22-29) mmol/L Anion Gap (5-19) BUN (8-23) mg/dL Creatinine (0.5-0.9) mg/dL GFR Calculation (90-130) mL/min POC Glucose (70-110) mg/dL Calculated Osmolal ity (285-295) mOsm/k g Lactate (0.5-2.2) mmol/L Calcium (8.5-10.5) mg/dL Magnesium (1.7-2.3) mg/dL Total Bilirubin (0.15-1.2) mg/dL AST (0-32) U/L ALT (0-33) U/L Alkaline Phosphata se (35-105) IU/L C-Reactive Protein (0.0-4.9) mg/L NT-Pro-B Natriuret Pep (0-125) pg/mL Total Protein (6.6-8.7) g/dL Albumin (3.5-5.2) g/dL Globulin (1.3-4.6) g/dL Urine Color Yellow (Yellow) Urine Appearance Hazy A (CLEAR) Urine pH 5 (5-7) Ur Specific Gravit y 1.015 (1.005-1.030) Urine Protein Trace (Negative) Urine Glucose (UA) Norm (Normal) Urine Ketones Negative (Negative) Urine Blood 2+ H (Negative) Urine Nitrate Positive H (Negative) Urine Bilirubin Neg (Negative) Urine Urobilinogen Neg (Negative) mg/dL Ur Leukocyte Maddi ase Negative (Negative) Urine RBC 0-4 H (0-2) /hpf Urine WBC 0-4 H (0-5) /hpf Ur Squamous Epith Cells 0-4 H (0-5) /hpf Amorphous Sediment Not Reportable Urine Bacteria 4+ H (NONE) /hpf SARS-CoV-2 Ag (Rap id) (Negative) Critical Care Time Critical Care Time: Critical Care Time: Yes Total Critical Care Time: 60 Attestation: This case had a high probability of a clinically significant, sudden, or life threatening deterioration of this patient's condition which required my full and direct attention, intervention and personal management. Discharge Plan Discharge Patient Disposition: Admitted As Inpatient Clinical Impression: Delirium due to general medical condition Community acquired pneumonia Qualifiers: Laterality: unspecified laterality Qualified Code(s): J18.9 - Pneumonia, unspecified organism Sepsis Qualifiers: Sepsis type: sepsis due to unspecified organism Sepsis acute organ dysfunction status: with acute organ dysfunction Severe sepsis acute organ dysfunction type: acute respiratory failure Acute respiratory failure type: with hypoxia Severe sepsis shock status: with septic shock Qualified Code(s): A41.9 - Sepsis, unspecified organism Condition: Stable Coding Level of Care Code ED Forensic Scientist for Dangelo Fwd Exam Comprehensive
--- NOTE | 2020-08-17 14:15 | PC.NURSE ---
Blood glucose is 198 nurse and doctor are aware.
[2020-08-17 14:16] LABS: Glucose Point of Care 198 mg/dL (70-110)
--- NOTE | 2020-08-17 14:24 | CTR_ITS ---
PROCEDURE INFORMATION: Exam: CT Head Without Contrast Exam date and time: 08/17/2020 2:42 PM Age: 65 years old Clinical indication: Altered mental status/memory loss; Additional info: AMS, fall TECHNIQUE: Imaging protocol: Computed tomography of the head without contrast. Axial, coronal and sagittal reformatted images were created and reviewed. Radiation optimization: All CT scans at this facility use at least one of these dose optimization techniques: automated exposure control; mA and/or kV adjustment per patient size (includes targeted exams where dose is matched to clinical indication); or iterative reconstruction. COMPARISON: No relevant prior studies available. RADIATION DOSE METRICS: Total DLP (mGy-cm): 499.7 FINDINGS: Brain: Patchy areas of hypoattenuation in the periventricular and subcortical white matter, consistent with chronic small vessel ischemic disease. No CT evidence of acute intracranial hemorrhage or acute territorial infarction. No significant mass effect or midline shift. Basal cisterns patent. Cerebral ventricles: Prominence of the cortical sulci, cisterns and ventricular system, consistent with cerebral and cerebellar volume loss. Bones/joints: No acute osseous abnormality. Paranasal sinuses: Mild ethmoid and right sphenoid sinus mucosal thickening. No fluid levels. Mastoid air cells: Grossly unremarkable. Vasculature: Calcific atherosclerotic disease in the cavernous internal carotid arteries, as well as the vertebro-basilar system. Soft tissues: Grossly unremarkable. CT/CT head wo con* [id number] IMPRESSION: 1. No CT evidence of acute intracranial pathology. 2. Additional findings, as above. Radiation Dose CTDIVOL = (mGy): DLP = 499.7 (mGy-cm)
--- NOTE | 2020-08-17 14:25 | CTR_ITS ---
PROCEDURE INFORMATION: Exam: CT Cervical Spine Without Contrast Exam date and time: 08/17/2020 2:42 PM Age: 65 years old Clinical indication: Neck pain; Additional info: Fall, AMS TECHNIQUE: Imaging protocol: Computed tomography images of the cervical spine without contrast. Axial, coronal and sagittal reformatted images were created and reviewed. Radiation optimization: All CT scans at this facility use at least one of these dose optimization techniques: automated exposure control; mA and/or kV adjustment per patient size (includes targeted exams where dose is matched to clinical indication); or iterative reconstruction. COMPARISON: No relevant prior studies available. RADIATION DOSE METRICS: Total DLP (mGy-cm): 706.3 FINDINGS: Bones/joints: Straightening of the normal cervical lordosis. Chronic deformity of the C1 posterior arch on the left. No CT evidence of acute fracture, dislocation or subluxation. Minimal anterolisthesis of C3 on C4 and C4 on C5. Mild retrolisthesis of C5 on C6. Alignment otherwise anatomic. Minimal levoscoliosis. Vertebral body heights maintained. Discs/Spinal canal/Neural foramina: Mild multilevel degenerative changes, characterized by disc space narrowing, osteophytosis and uncovertebral and facet joint hypertrophy. Mild multilevel spinal canal and neural foraminal narrowing, most severe at C5-C6 bilaterally and C6-C7 on the left. Lungs: Partially visualized dense left upper lobe consolidation. Soft tissues: Grossly unremarkable. CT/CT cervical spin wo con* [id number] IMPRESSION: 1. No CT evidence of acute cervical spine traumatic injury. 2. Partially visualized dense left upper lobe consolidation. 3. Additional findings, as above. Radiation Dose CTDIVOL = (mGy): DLP = 706.3 (mGy-cm)
[2020-08-17 14:30] LABS: ABG PCO2 57.4 mmHg (35-45); ABG PH Result 7.35 (7.35-7.45); Arterial Blood Gas Hematocrit 35.4 % (37-47); Base Excess ABG 4.6 mmol/L (-2.0-2.0); Blood Gas Operator Identificat AMH; Blood Gas Sample Site Brachial, right; Blood Gas Sample Type Arterial; Carboxyhemoglobin 1.4 %THgb (0.4-20.1); HCO3 ABG 31.5 mmol/L (22-26); HGB O2 Sat 87.5 % (95-100); Ionized Calcium Level - ABG 1.1 mmol/L (1.1-1.4); Methemoglobin 0.8 % (0.4-1.5); Oxygen Device NC; Oxygen Saturation ABG 89.4; PO2 ABG 58.2 mmHg (80.0-100.0); Potassium Level - ABG 3.2 mmol/L (3.5-5.0); Total Hemoglobin 11.5 g/dL (12-16)
[2020-08-17 14:58] LABS: Basophils % 0.1 %; Eosinophils % 0.1 %; Hemoglobin 11.6 g/dL (11.5-15.3); Lymphocytes # 0.7 10^3/uL (0.8-4.8); Lymphocytes % 2.5 %; Mean Corpuscular HGB Conc 31.4 g/dL (30.0-36.0); Mean Corpuscular Hemoglobin 29.6 pg (28.0-34.0); Mean Corpuscular Volume 94.4 fL (81-99); Mean Platelet Volume 10.5 fL (7.4-10.4); Monocytes # 0.3 10^3/uL (0.2-0.9); Neutrophils # 28.65 10^3/uL (1.8-7.7); Neutrophils % 95.2 %; Nucleated Red Blood Cells % 0 %; Platelet Count 505 10^3/cmm (130-400); Red Blood Count 3.92 10^6/uL (4.1-5.3); Red Cell Distribution Width 14.5 % (12.1-15.1); White Blood Count 30.1 10^3/uL (4.0-10.0)
[2020-08-17] MEDS: dexamethasone 4 mg/mL INJ 6 MG IVP (15:03)
[2020-08-17] MEDS: cefTRIAXone 1,000 MG in sodium chloride 0.9% (plus) 50 ML 100 MG IV (15:05)
[2020-08-17] MEDS: azithromycin 500 MG in sodium chloride 0.9% 250 ML 250 MG IV (15:08)
[2020-08-17] MEDS: sodium chloride 0.9% 1,000 ML 999 ML IV ×3 (15:09→20:34)
[2020-08-17 15:18] LABS: INR 1.12 (0.8-1.2); Lactate (Lactic Acid level) 4.1 mmol/L (0.5-2.2)
[2020-08-17 15:25] LABS: Alanine Aminotransferase 61 U/L (0-33); Albumin Level 2.3 g/dL (3.5-5.2); Alkaline Phosphatase 185 IU/L (35-105); Anion Gap 14.3 (5-19); Aspartate Amino Transferase 156 U/L (0-32); Blood Urea Nitrogen 23 mg/dL (8-23); Calcium 8.1 mg/dL (8.5-10.5); Carbon Dioxide 30 mmol/L (22-29); Chloride 92 mmol/L (98-107); Globulin 4.2 g/dL (1.3-4.6); Glomerular Filtration Rate 83.5 mL/min (90-130); Glucose 187 mg/dL (65-115); Magnesium 2.3 mg/dL (1.7-2.3); NT Pro B Type Natriuretic Pept 1425 pg/mL (0-125); Osmolality Calculated 285 mOsm/kg (285-295); Potassium 3.3 mmol/L (3.5-5.1); Sodium 133 mmol/L (136-145); Total Bilirubin 0.3 mg/dL (0.15-1.2); Total Protein 6.5 g/dL (6.6-8.7)
[2020-08-17 15:38] LABS: C Reactive Protein 458.3 mg/L (0.0-4.9)
--- NOTE | 2020-08-17 15:42 | CTR_ITS ---
PROCEDURE INFORMATION: Exam: CT Chest With Contrast; Diagnostic Exam date and time: 08/17/2020 4:01 PM Age: 65 years old Clinical indication: Cough and shortness of breath; Additional info: Hypoxia, SOB, abnormal xray TECHNIQUE: Imaging protocol: Diagnostic computed tomography of the chest with intravenous contrast. Axial, coronal and sagittal reformatted images were created and reviewed. Radiation optimization: All CT scans at this facility use at least one of these dose optimization techniques: automated exposure control; mA and/or kV adjustment per patient size (includes targeted exams where dose is matched to clinical indication); or iterative reconstruction. Contrast material: OMNI 300; Contrast volume: 95 ml; Contrast route: INTRAVENOUS (IV); COMPARISON: CT angio chest PE protcl [id number] 11/08/2019 11:27:45 PM RADIATION DOSE METRICS: Total DLP (mGy-cm): 573.41 FINDINGS: Lungs: Emphysema. Extensive dense consolidation in the left upper lobe and lingula with patchy areas of consolidation and reticulonodular infiltration throughout the right lung, most confluent at the lung base. Patchy areas of reticulonodular infiltration and subsegmental consolidation in the left lower lobe. Pleural space: Small left pleural effusion. No pneumothorax. Heart: Unremarkable. No cardiomegaly. No pericardial effusion. Aorta: Mild atherosclerotic disease. No aneurysm or dissection. Lymph nodes: Borderline sized mediastinal and hilar lymph nodes, measuring up to 2 x 0.9 cm in the subcarinal region. Liver: 4 mm low-density lesion in the left hepatic lobe, too small to characterize. Adrenals: Mild nonspecific left greater than right adrenal thickening. Bones/joints: No acute osseous abnormality. Mild degenerative changes. Soft tissues: Unremarkable. CT/CT chest w con* [id number] IMPRESSION: 1. Bilateral consolidations and reticulonodular infiltrates, most confluent in the left upper lobe and at the right lung base. Findings are most likely secondary to multifocal pneumonia. Underlying malignancy cannot be entirely excluded. Follow-up to resolution is recommended. 2. Additional findings, as above. Radiation Dose CTDIVOL = (mGy): DLP = 573.41 (mGy-cm)
[2020-08-17 15:56] LABS: SARS Covid-2 Antigen Negative (Negative)
[2020-08-17] MEDS: iohexol 300 mg/mL 100 mL Btl IV (16:23)
--- NOTE | 2020-08-17 16:56 | PC.NURSE ---
EKG done at 1655 and shown to ER doctor
[2020-08-17 17:01] LABS: Add Urine Microscopic? YES; Bilirubin Urine Neg (Negative); Blood Urine 2+ (Negative); Glucose Urine UA Norm (Normal); Ketones Urine Negative (Negative); Leukocyte Esterase Urine Negative (Negative); Nitrate Urine Positive (Negative); Protein Urine Trace (Negative); Specific Gravity, Urine 1.015 (1.005-1.030); Urine Appearance Hazy (CLEAR); Urine Color Yellow (Yellow); Urobilinogen Urine Neg (Negative); pH Urine 5 (5-7)
[2020-08-17 17:04] LABS: RBC Urine 0-4 /hpf (0-2); Squamous Epithelial Cell Urine 0-4 /hpf (0-5); WBC Urine 0-4 /hpf (0-5)
--- NOTE | 2020-08-17 17:04 | ECG_ITS ---
[facility] Test Date: 2020-08-17 Pat Name: Lisa Peterson Department: Room: Gender: Female [employer] Superintendent: : 1955 Requested By: Oksana Frey Order Number: [id number] Astrid MD: Robert Abad M.D. Measurements Intervals [place] Rate: 137 P: 33 MA: 146 QRS: 80 QRSD: 89 T: 58 QT: 284 QTc: 429 Interpretive Statements SINUS TACHYCARDIA LOW QRS VOLTAGE IN PRECORDIAL LEADS [QRS DEFLECTION < 1.0 mV IN CHEST LEADS] ABNORMAL RHYTHM ECG Compared to ECG 11/09/2019 00:58:31 Low QRS voltage now present Atrial flutter no longer present Myocardial infarct finding no longer present Electronically Signed On 08-17-2020 17:50:25 SEARCH ENGINE MARKETING MANAGER by Robert Abad M.D. [id number]
[2020-08-17 17:05] LABS: Add Urine Culture? Yes; Bacteria Urine 4+ /hpf
--- NOTE | 2020-08-17 17:06 | ECG_ITS ---
[facility] Test Date: 2020-08-17 Pat Name: Lisa Peterson Department: Room: Gender: Female Recenterer: : 1955 Requested By: Oksana Frey Order Number: [id number] Astrid MD: Robert Abad M.D. Measurements Intervals [place] Rate: 144 P: 52 MS: 140 QRS: 76 QRSD: 92 T: 10 QT: 273 QTc: 423 Interpretive Statements SINUS TACHYCARDIA Compared to ECG 11/09/2019 00:58:31 Myocardial infarct finding no longer present Electronically Signed On 08-18-2020 16:44:50 GROUND PRODUCTS DIRECTOR by Robert Abad M.D. [id number]
--- NOTE | 2020-08-17 19:18 | P.HP_ITS ---
Providers/Chief Complaint Primary Care Provider: ARIC Calles Chief Complaint: AMS, SHORT OF BREATH, FEVER History of Present Illness Lisa Peterson is a 65 year old female who has history of COPD, chronic smoker, was admitted in the hospital in October for management of community- acquired pneumonia, she was discharged on azithromycin and 3 L nasal cannula, presented today with chief complaint of worsening shortness of breath. patient is stating that her shortness of breath started few days ago, got worse to the point that she just could not breathe and keep her oxygen up despite using home oxygen, she started feeling extremely tired and lethargic today when she was coming out of bathroom she fell on the floor while trying to catch her breath. She did not pass out she is denying syncope, seizure-like activities, chest pain but endorsing shortness of breath and air hunger. She has not noticed any chest discomfort, orthopnea, PND weight gain or lower extremity edema. She denied diarrhea, dysuria. She also noticed high temperature at home around 101 F. She has been bringing up yellow sputum. She denied neck pain, headache, confusion. Diagnosis in the ER revealed sepsis, community-acquired pneumonia, COVID-19 negative, A. fib RVR, On last admission she was diagnosed with A. fib RVR and after Cardizem she converted to sinus rhythm she was not discharged on any anticoagulant agent, She was given ceftriaxone, azithromycin, Decadron in the ER, by the time I saw her she was on BiPAP, she was saturating 66% on room air, EMS put her on nonrebreather mask, to decrease work of breathing she was put on BiPAP, Patient was experiencing conversational dyspnea hence decision was made to intubate her in the ER, patient gave consent for the intubation. Post intubation her endotracheal tube was retracted 1 cm because it was too deep, she was saturating 100% on vent settings 100% FiO2 PEEP 5 tidal volume 500 peak pressure 30, systolic blood pressures soft in 80s, propofol was discontinued, fentanyl was added along Levophed Review of Systems Const: Reports: fever(s), chills, body aches and fatigue Eyes: Denies: change in vision ENMT: Denies: throat pain Card: Reports: dyspnea on exertion and orthopnea; Denies: swelling of feet/ankles Resp: Reports: dyspnea, productive cough, pain on inspiration, change in phlegm color and chest congestion GI: Denies: abdominal pain : Denies: flank pain Musc: Denies: neck pain Skin/Breast: Denies: rash Neuro: Denies: headache(s) Psych: Reports: anxiety Endo: Denies: polyuria Philip/Lymph: Denies: easy bruising All/Imm: Denies: urticaria Medications/Allergies Home Medications Medication Instructions Recorded Confirmed Last Taken Type trazodone 100 mg PO BEDTIME 11/10/19 08/17/20 11/08/19 22:00 History Allergies Allergy/AdvReac Type Severity Reaction Status Date / Time codeine Allergy ALGY-Anaphy Verified 08/17/20 14:18 laxis Penicillins AdvReac Mild Unknown Verified 08/17/20 14:18 PFSH Acute PFSH: Medical History (Updated 08/17/20 @ 21:45 by Akash Rayo MD) COPD (chronic obstructive pulmonary disease) -Oxygen dependent 3 L at home Nicotine abuse Paroxysmal atrial fibrillation Surgical History Hx of hysterectomy Family History (Updated 08/17/20 @ 21:46 by Akash Rayo MD) Other Family history non-contributory Social History (Updated 08/17/20 @ 21:46 by Akash Rayo MD) Smoking and tobacco status: current every day smoker Alcohol intake: never Substance/Drug Use: never Household members: spouse Housing: House Vitals/I&O/Wt Last Vital Signs Pulse 140 H 08/17/20 19:11 Resp 37 H 08/17/20 16:50 BP 106/78 08/17/20 16:50 Pulse Ox 95 08/17/20 19:11 Weight last 48 hrs Weight 68.039 kg Physical Exam Narrative: EXAM NARRATIVE: middle-aged female who appears more than stated age Was on BiPAP when I entered the room she had conversational dyspnea and hypoxia during conversation, decision was made to intubate her however she was able to mention above HPI Variable S1-S2, no active murmur no active sign of heart failure Clinically looks euvolemic Abdomen soft nontender Bilateral breath sounds with coarse rhonchi and bronchial breathing left greater than right Lower extremity no edema gangrene ulcer She was awake appeared very anxious was experiencing air hunger Irritable mood/anxious EOMI, PERRLA No signs of meningitis no meningismus no neurological deficit She was awake alert oriented x3 GCS 15 before intubation Urinary Catheter Management^: Bell: Cath Placed During This Visit: yes Urinary Catheter Date of Insertion: 08/17/20 Urinary Catheter Time of Insertion: 16:53 Data : 08/17/20 14:47 08/17/20 14:47 A&P Assessment and plan (1) Sepsis: Status: Acute Qualifiers: Acute respiratory failure type: with hypoxia Sepsis acute organ dysfunction status: with acute organ dysfunction Sepsis type: sepsis due to unspecified organism Severe sepsis acute organ dysfunction type: acute respiratory failure Severe sepsis shock status: with septic shock Qualified Code(s): A41.9 - Sepsis, unspecified organism; R65.21 - Severe sepsis with septic shock; J96.01 - Acute respiratory failure with hypoxia (2) Community acquired pneumonia: Status: Acute Qualifiers: Laterality: unspecified laterality Qualified Code(s): J18.9 - Pneumonia, unspecified organism (3) Paroxysmal atrial fibrillation: Status: Inactive (4) Lactic acidemia: Status: Acute (5) Hypokalemia: Status: Acute Additional A&P Information Respiratory failure requiring mechanical intubation Increased work of breathing secondary to community-acquired pneumonia Conversational dyspnea noted, current vent settings PEEP 5 FiO2 100% peak pressure less than 30, tidal volume 500, respiratory rate 12, will request another blood gas in 30 minutes Check yellow sputum was suctioned via endotracheal tube which we will send for culture and Gram stain Septic shock secondary to community-acquired pneumonia Received ceftriaxone and azithromycin in the ER Sepsis criteria met with tachypnea, tachycardia, severe leukocytosis, high lactic acidemia Blood culture requested High BNP but she looks euvolemic I will keep her on maintenance fluid Started Levophed and switched her sedating agent to fentanyl instead of propofol We will send urine antigens We will keep her on Decadron for now, Covid antigen negative, will send PCR Paroxysmal atrial fibrillation I will start her on Lovenox therapeutic dose twice a day On last visit she also experienced similar paroxysmal atrial fibrillation rhythm which converted to sinus rhythm after Cardizem, Will add amiodarone if her heart rate stays persistently above 110 Full code Start tube feeding DVT prophylaxis currently she is on therapeutic Lovenox dose Attestations Medical Necessity Statement*: Anticipating stay in the hospital for more than 2 midnights for sepsis and community-acquired pneumonia currently intubated Time Spent in Patient Care: (>than 50% of time spent in counselling and/or direct pt care on unit) . 50mins Coding Level of Care Code Acute Distribution Coordinator for Chg Fwd Diagnoses Sepsis A41.9; R65.21; J96.01 Acute respiratory failure type: with hypoxia Sepsis acute organ dysfunction status: with acute organ dysfunction Sepsis type: sepsis due to unspecified organism Severe sepsis acute organ dysfunction type: acute respiratory failure Severe sepsis shock status: with septic shock Community acquired pneumonia J18.9 Laterality: unspecified laterality Paroxysmal atrial fibrillation I48.0 Lactic acidemia E87.2 Hypokalemia E87.6
[2020-08-17 19:24] LABS: ABG PH Result 7.37 (7.35-7.45); Arterial Blood Gas Hematocrit 36.2 % (37-47); Base Excess ABG 4.1 mmol/L (-2.0-2.0); Blood Gas Allen Test Pos; Blood Gas Sample Site Radial, left; Blood Gas Sample Type Arterial; HCO3 ABG 30.3 mmol/L (22-26); Oxygen Device BIPAP; PO2 ABG 58.5 mmHg (80.0-100.0)
--- NOTE | 2020-08-17 20:32 | ED_ITS ---
HPI - Altered Mental Status General: Chief Complaint: Altered Mental Status Stated Complaint: AMS, SHORT OF BREATH, FEVER Time Seen by Provider: 08/17/20 14:03 Source: family and EMS Mode of arrival: EMS Limitations: altered mental status [facility] ED PFSH: Medical History COPD (chronic obstructive pulmonary disease) -Likely triggered by pneumonia as noted above -Continue nebulizer treatments -Patient is not oxygen dependent at baseline Surgical History Hx of hysterectomy Social History Smoking and tobacco status: current every day smoker Physical Exam Urinary Catheter Management^: Bell: Cath Placed During This Visit: yes Reason for Continuing Indwelling Catheter: Accurate Measurement of Urinary Output in Critically Ill Patients Urinary Catheter Date of Insertion: 08/17/20 Urinary Catheter Time of Insertion: 16:53 Procedures Intubation sedative: Etomidate Mg Given: 20 paralytic: Succinylcholine Mg Given: 125 Laryngoscope: fiber optic video scope ET Tube Size: 8 ET Tube Uncuffed: Yes Tube Secured Depth (cm): 20 Tube Secured Location: lips Tube Placement Confirmation: visualized tube passing through cords, equal breath sounds bilaterally, no breath sounds over epigastrium and confirmation by capnometry Patient Tolerated Procedure: well and no complications Intubation Complications: none Course Vital Signs: Vital signs: Vital Signs Pulse Rate 151 H 08/17/20 19:37 Respiratory Rate 44 H 08/17/20 19:37 Blood Pressure 99/65 08/17/20 19:37 Pulse Oximetry 93 08/17/20 19:37 MDM - Altered Mental Status Lab Data: Labs: Lab Results 08/17/20 08/17/20 08/17/20 Range/Units 14:12 14:13 14:19 WBC (4.0-10.0) 10^3/ uL RBC (4.1-5.3) 10^6/u L Hgb (11.5-15.3) g/dL Hct (37.0-47.0) % MCV (81-99) fL MCH (28.0-34.0) pg MCHC (30.0-36.0) g/dL RDW (12.1-15.1) % Plt Count (130-400) 10^3/c mm MPV (7.4-10.4) fL Neut % (Auto) % Lymph % (Auto) % [place] % (Auto) % Eos % (Auto) % Baso % (Auto) % Neut # (Auto) (1.8-7.7) 10^3/u L Lymph # (Auto) (0.8-4.8) 10^3/u L [place] # (Auto) (0.2-0.9) 10^3/u L Eos # (Auto) (0.0-0.8) 10^3/u L Baso # (Auto) (0.0-0.1) 10^3/u L Nucleated RBC % (a uto) % Nucleated RBCs # /100WBC PT (12.1-14.9) SECO NDS INR (0.8-1.2) Specimen Type Arterial Sample Site Brachial, right ABG pH 7.35 (7.35-7.45) ABG pCO2 57.4 H (35-45) mmHg ABG pO2 58.2 L (80.0-100.0) mmH g ABG HCO3 31.5 H (22-26) mmol/L ABG O2 Saturation 89.4 ABG Base Excess 4.6 H (-2.0-2.0) mmol/ L Escobar Test N/a A-a O2 Gradient 17.0 H (5-10) mmHg Hematocrit 35.4 L (37-47) % Hgb O2 Saturation 87.5 L (95-100) % Carboxyhemoglobin 1.4 (0.4-20.1) %THgb Methemoglobin 0.8 (0.4-1.5) % Total Hemoglobin 11.5 L (12-16) g/dL Sodium 132.0 (131-143) mmol/L Potassium 3.2 L (3.5-5.0) mmol/L Glucose 186.0 H (70-115) mg/dL Ionized Calcium 1.1 (1.1-1.4) mmol/L O2 Delivery Device Nc O2 Liters/Min 4.0 % FiO2 36.0 % [employer] Supervisor ID Amh Chloride (98-107) mmol/L Carbon Dioxide (22-29) mmol/L Anion Gap (5-19) BUN (8-23) mg/dL Creatinine (0.5-0.9) mg/dL GFR Calculation (90-130) mL/min POC Glucose 198 H (70-110) mg/dL Calculated Osmolal ity (285-295) mOsm/k g Lactate (0.5-2.2) mmol/L Calcium (8.5-10.5) mg/dL Magnesium (1.7-2.3) mg/dL Total Bilirubin (0.15-1.2) mg/dL AST (0-32) U/L ALT (0-33) U/L Alkaline Phosphata se (35-105) IU/L C-Reactive Protein (0.0-4.9) mg/L NT-Pro-B Natriuret Pep (0-125) pg/mL Total Protein (6.6-8.7) g/dL Albumin (3.5-5.2) g/dL Globulin (1.3-4.6) g/dL Urine Color (Yellow) Urine Appearance (CLEAR) Urine pH (5-7) Ur Specific Gravit y (1.005-1.030) Urine Protein (Negative) Urine Glucose (UA) (Normal) Urine Ketones (Negative) Urine Blood (Negative) Urine Nitrate (Negative) Urine Bilirubin (Negative) Urine Urobilinogen (Negative) mg/dL Ur Leukocyte Maddi ase (Negative) Urine RBC (0-2) /hpf Urine WBC (0-5) /hpf Ur Squamous Epith Cells (0-5) /hpf Amorphous Sediment Urine Bacteria (NONE) /hpf SARS-CoV-2 Ag (Rap id) Negative (Negative) 08/17/20 08/17/20 08/17/20 Range/Units 14:47 14:47 14:47 WBC 30.1 H (4.0-10.0) 10^3/ uL RBC 3.92 L (4.1-5.3) 10^6/u L Hgb 11.6 (11.5-15.3) g/dL Hct 37.0 (37.0-47.0) % MCV 94.4 (81-99) fL MCH 29.6 (28.0-34.0) pg MCHC 31.4 (30.0-36.0) g/dL RDW 14.5 (12.1-15.1) % Plt Count 505 H (130-400) 10^3/c mm MPV 10.5 H (7.4-10.4) fL Neut % (Auto) 95.2 % Lymph % (Auto) 2.5 % [place] % (Auto) 1.0 % Eos % (Auto) 0.1 % Baso % (Auto) 0.1 % Neut # (Auto) 28.65 H (1.8-7.7) 10^3/u L Lymph # (Auto) 0.7 L (0.8-4.8) 10^3/u L [place] # (Auto) 0.3 (0.2-0.9) 10^3/u L Eos # (Auto) 0.0 (0.0-0.8) 10^3/u L Baso # (Auto) 0.0 (0.0-0.1) 10^3/u L Nucleated RBC % (a uto) 0 % Nucleated RBCs # 0.0 /100WBC PT (12.1-14.9) SECO NDS INR (0.8-1.2) Specimen Type Sample Site ABG pH (7.35-7.45) ABG pCO2 (35-45) mmHg ABG pO2 (80.0-100.0) mmH g ABG HCO3 (22-26) mmol/L ABG O2 Saturation ABG Base Excess (-2.0-2.0) mmol/ L Escobar Test A-a O2 Gradient (5-10) mmHg Hematocrit (37-47) % Hgb O2 Saturation (95-100) % Carboxyhemoglobin (0.4-20.1) %THgb Methemoglobin (0.4-1.5) % Total Hemoglobin (12-16) g/dL Sodium 133 L (131-143) mmol/L Potassium 3.3 L (3.5-5.0) mmol/L Glucose 187 H (70-115) mg/dL Ionized Calcium (1.1-1.4) mmol/L O2 Delivery Device O2 Liters/Min % FiO2 % [employer] Supervisor ID Chloride 92 L (98-107) mmol/L Carbon Dioxide 30 H (22-29) mmol/L Anion Gap 14.3 (5-19) BUN 23 (8-23) mg/dL Creatinine 0.7 (0.5-0.9) mg/dL GFR Calculation 83.5 L (90-130) mL/min POC Glucose (70-110) mg/dL Calculated Osmolal ity 285 (285-295) mOsm/k g Lactate 4.1 H* (0.5-2.2) mmol/L Calcium 8.1 L (8.5-10.5) mg/dL Magnesium 2.3 (1.7-2.3) mg/dL Total Bilirubin 0.3 (0.15-1.2) mg/dL AST 156 H (0-32) U/L ALT 61 H (0-33) U/L Alkaline Phosphata se 185 H (35-105) IU/L C-Reactive Protein 458.3 H (0.0-4.9) mg/L NT-Pro-B Natriuret Pep 1425 H (0-125) pg/mL Total Protein 6.5 L (6.6-8.7) g/dL Albumin 2.3 L (3.5-5.2) g/dL Globulin 4.2 (1.3-4.6) g/dL Urine Color (Yellow) Urine Appearance (CLEAR) Urine pH (5-7) Ur Specific Gravit y (1.005-1.030) Urine Protein (Negative) Urine Glucose (UA) (Normal) Urine Ketones (Negative) Urine Blood (Negative) Urine Nitrate (Negative) Urine Bilirubin (Negative) Urine Urobilinogen (Negative) mg/dL Ur Leukocyte Maddi ase (Negative) Urine RBC (0-2) /hpf Urine WBC (0-5) /hpf Ur Squamous Epith Cells (0-5) /hpf Amorphous Sediment Urine Bacteria (NONE) /hpf SARS-CoV-2 Ag (Rap id) (Negative) 08/17/20 08/17/20 08/17/20 Range/Units 14:47 16:46 19:10 WBC (4.0-10.0) 10^3/ uL RBC (4.1-5.3) 10^6/u L Hgb (11.5-15.3) g/dL Hct (37.0-47.0) % MCV (81-99) fL MCH (28.0-34.0) pg MCHC (30.0-36.0) g/dL RDW (12.1-15.1) % Plt Count (130-400) 10^3/c mm MPV (7.4-10.4) fL Neut % (Auto) % Lymph % (Auto) % [place] % (Auto) % Eos % (Auto) % Baso % (Auto) % Neut # (Auto) (1.8-7.7) 10^3/u L Lymph # (Auto) (0.8-4.8) 10^3/u L [place] # (Auto) (0.2-0.9) 10^3/u L Eos # (Auto) (0.0-0.8) 10^3/u L Baso # (Auto) (0.0-0.1) 10^3/u L Nucleated RBC % (a uto) % Nucleated RBCs # /100WBC PT 14.80 (12.1-14.9) SECO NDS INR 1.12 (0.8-1.2) Specimen Type Arterial Sample Site Radial, left ABG pH 7.37 (7.35-7.45) ABG pCO2 52.0 H (35-45) mmHg ABG pO2 58.5 L (80.0-100.0) mmH g ABG HCO3 30.3 H (22-26) mmol/L ABG O2 Saturation ABG Base Excess 4.1 H (-2.0-2.0) mmol/ L Escobar Test Pos A-a O2 Gradient (5-10) mmHg Hematocrit 36.2 L (37-47) % Hgb O2 Saturation (95-100) % Carboxyhemoglobin (0.4-20.1) %THgb Methemoglobin (0.4-1.5) % Total Hemoglobin (12-16) g/dL Sodium (131-143) mmol/L Potassium (3.5-5.0) mmol/L Glucose (70-115) mg/dL Ionized Calcium (1.1-1.4) mmol/L O2 Delivery Device Bipap O2 Liters/Min % FiO2 45.0 % [employer] Supervisor ID Jlg Chloride (98-107) mmol/L Carbon Dioxide (22-29) mmol/L Anion Gap (5-19) BUN (8-23) mg/dL Creatinine (0.5-0.9) mg/dL GFR Calculation (90-130) mL/min POC Glucose (70-110) mg/dL Calculated Osmolal ity (285-295) mOsm/k g Lactate (0.5-2.2) mmol/L Calcium (8.5-10.5) mg/dL Magnesium (1.7-2.3) mg/dL Total Bilirubin (0.15-1.2) mg/dL AST (0-32) U/L ALT (0-33) U/L Alkaline Phosphata se (35-105) IU/L C-Reactive Protein (0.0-4.9) mg/L NT-Pro-B Natriuret Pep (0-125) pg/mL Total Protein (6.6-8.7) g/dL Albumin (3.5-5.2) g/dL Globulin (1.3-4.6) g/dL Urine Color Yellow (Yellow) Urine Appearance Hazy A (CLEAR) Urine pH 5 (5-7) Ur Specific Gravit y 1.015 (1.005-1.030) Urine Protein Trace (Negative) Urine Glucose (UA) Norm (Normal) Urine Ketones Negative (Negative) Urine Blood 2+ H (Negative) Urine Nitrate Positive H (Negative) Urine Bilirubin Neg (Negative) Urine Urobilinogen Neg (Negative) mg/dL Ur Leukocyte Maddi ase Negative (Negative) Urine RBC 0-4 H (0-2) /hpf Urine WBC 0-4 H (0-5) /hpf Ur Squamous Epith Cells 0-4 H (0-5) /hpf Amorphous Sediment Not Reportable Urine Bacteria 4+ H (NONE) /hpf SARS-CoV-2 Ag (Rap id) (Negative) Discharge Plan Discharge Patient Disposition: Admitted As Inpatient Clinical Impression: Delirium due to general medical condition Community acquired pneumonia Qualifiers: Laterality: unspecified laterality Qualified Code(s): J18.9 - Pneumonia, unspecified organism Sepsis Qualifiers: Sepsis type: sepsis due to unspecified organism Sepsis acute organ dysfunction status: with acute organ dysfunction Severe sepsis acute organ dysfunction type: acute respiratory failure Acute respiratory failure type: with hypoxia Severe sepsis shock status: with septic shock Qualified Code(s): A41.9 - Sepsis, unspecified organism Condition: Stable Coding Level of Care Code ED Coal Chemist for Dangelo Weeks
[2020-08-17] MEDS: LORazepam 2 mg/mL INJ 1 mL IVP (20:33)
[2020-08-17] MEDS: fentaNYL 50 mcg/mL INJ 2mL 100 MCG IVP (20:33)
[2020-08-17] MEDS: succinylcholine 20 mg/mL SDV 10mL 125 MG IVP (20:34)
[2020-08-17] MEDS: propofol 1,000 MG/100 ML INJ 10 MG (20:36)
--- NOTE | 2020-08-17 20:58 | XRR_ITS ---
PROCEDURE INFORMATION: Exam: XR Chest, 1 View Exam date and time: 08/17/2020 8:59 PM Age: 65 years old Clinical indication: Device placement; Ett placement (vent status); Additional info: Post intubation TECHNIQUE: Imaging protocol: XR of the chest Views: 1 view. COMPARISON: CT chest w con* [id number] 08/17/2020 4:07 PM FINDINGS: Tubes, catheters and devices: Endotracheal tube in place with its tip approximately 3.5 cm above the valente. NG tube coiled in the esophagus with its tip directed superiorly at the level of the mid esophagus. Lungs: Left greater than right infiltrates a similar to prior. Pleural space: Unremarkable. No pleural effusion. No pneumothorax. Heart/Mediastinum: Unremarkable. No cardiomegaly. Bones/joints: No acute osseous abnormality. XR/XR chest 1V portable [id number] IMPRESSION: 1. Malpositioned nasogastric tube, as above. 2. Endotracheal tube in adequate position. 3. Additional findings, as above.
[2020-08-17 23:56] LABS: ABG PH Result 7.31 (7.35-7.45); Alveolar-Arterial Oxygen Gradi 66.7 mmHg (5-10); Arterial Blood Gas Hematocrit 36.1 % (37-47); Base Excess ABG 1.7 mmol/L (-2.0-2.0); Blood Gas Sample Site Brachial, left; Blood Gas Sample Type Arterial; Carboxyhemoglobin 0.5 %THgb (0.4-20.1); HCO3 ABG 28.9 mmol/L (22-26); HGB O2 Sat 97.8 % (95-100); Ionized Calcium Level - ABG 1.1 mmol/L (1.1-1.4); Methemoglobin 0.9 % (0.4-1.5); Oxygen Device VENT; Oxygen Saturation ABG 99.1; Potassium Level - ABG 3.8 mmol/L (3.5-5.0); Total Hemoglobin 11.8 g/dL (12-16)
[2020-08-18] VITALS (53 sets, daily range): BP systolic 85–150; BP diastolic 50–89; PULSE 83–143; RESP 15–33; TEMP 36.5–37.4; O2SAT 79–100
[2020-08-18 02:48] LABS: ABG PCO2 47.9 mmHg (35-45); Alveolar-Arterial Oxygen Gradi 0.7 mmHg (5-10); Arterial Blood Gas Hematocrit 31.9 % (37-47); Blood Gas Allen Test Pos; Blood Gas Sample Type Arterial; Carboxyhemoglobin 0.6 %THgb (0.4-20.1); HCO3 ABG 29.5 mmol/L (22-26); HGB O2 Sat 95.8 % (95-100); Ionized Calcium Level - ABG 1.1 mmol/L (1.1-1.4); Methemoglobin 0.9 % (0.4-1.5); Oxygen Saturation ABG 97.2; PO2 ABG 85.3 mmHg (80.0-100.0); Potassium Level - ABG 3.8 mmol/L (3.5-5.0); Total Hemoglobin 10.4 g/dL (12-16)
--- NOTE | 2020-08-18 03:19 | PC.PHAR ---
Vancomycin is dosed at 1250mg IVPB every 18 hours to produce a predicted trough level of 12.85 (population based pharmacokinetic analysis). A trough level has been ordered from the lab to be obtained before the fourth dose to confirm and adjust if needed.
[2020-08-18] MEDS: enoxaparin 80 mg/0.8 mL Syringe 70 MG SUBCUT (03:33)
[2020-08-18] MEDS: piperacillin-tazobactam 3.375 GM in sodium chloride 0.9% (plus) 50 ML IV ×3 (03:33→19:09)
[2020-08-18] MEDS: sodium chlor 0.9% + KCl 40 mEq 40 MEQ/1,000 ML BAG 75 MEQ IV (03:42)
[2020-08-18] MEDS: acetylcysteine 200 mg/mL SDV 4 mL 100 MG INHALATION ×5 (04:05→19:46)
[2020-08-18] MEDS: morphine 4 mg/mL SDV 1 mL 2 MG IVP ×2 (04:47→20:09)
--- NOTE | 2020-08-18 04:48 | PC.NURSE ---
FENTANYL MAX DOSE per Dr. Rayo, max dose of fentanyl can be 150 mcg/hr
[2020-08-18 05:36] LABS: Eosinophils # 0.1 10^3/uL (0.0-0.8); Eosinophils % 0.1 %; Hematocrit 31.9 % (37.0-47.0); Hemoglobin 9.9 g/dL (11.5-15.3); Lymphocytes # 0.9 10^3/uL (0.8-4.8); Lymphocytes % 2.2 %; Mean Corpuscular Hemoglobin 29.8 pg (28.0-34.0); Mean Corpuscular Volume 96.1 fL (81-99); Mean Platelet Volume 10.4 fL (7.4-10.4); Monocytes # 0.7 10^3/uL (0.2-0.9); Monocytes % 1.6 %; Neutrophils % 94.9 %; Nucleated Red Blood Cells % 0 %; Platelet Count 541 10^3/cmm (130-400); Red Blood Count 3.32 10^6/uL (4.1-5.3); Red Cell Distribution Width 14.8 % (12.1-15.1)
[2020-08-18 06:09] LABS: Anion Gap 14.8 (5-19); Blood Urea Nitrogen 21 mg/dL (8-23); Calcium 7.7 mg/dL (8.5-10.5); Carbon Dioxide 26 mmol/L (22-29); Chloride 100 mmol/L (98-107); Glomerular Filtration Rate 123.1 mL/min (90-130); Glucose 237 mg/dL (65-115); Osmolality Calculated 295 mOsm/kg (285-295); Potassium 3.8 mmol/L (3.5-5.1); Sodium 137 mmol/L (136-145)
[2020-08-18 06:45] LABS: White Blood Count 42.1 10^3/uL (4.0-10.0)
[2020-08-18] MEDS: vancomycin 1,250 MG/250 ML PIGGYBACK 250 MG IV (07:50)
[2020-08-18] MEDS: levofloxacin-dextrose 5% 750 mg-150 mL Premix 100 MG IV (09:51)
[2020-08-18] MEDS: ipratropium-albuterol 3 mL Neb INHALATION ×3 (11:35→19:46)
[2020-08-18] MEDS: dexmedetomidine 400 MCG in sodium chloride 0.9% (100 ml) 100 ML IV (11:55)
--- NOTE | 2020-08-18 14:11 | XRR_ITS ---
PROCEDURE INFORMATION: Exam: XR Chest, 1 View Exam date and time: 08/18/2020 2:12 PM Age: 65 years old Clinical indication: Device placement; Other: RT ij placement; Additional info: RT i. J placement TECHNIQUE: Imaging protocol: XR of the chest Views: 1 view. Total images: 1 COMPARISON: CR XR chest 1V portable [id number] 08/17/2020 8:21 PM FINDINGS: Tubes, catheters and devices: Interval placement of a right internal jugular central venous catheter tip at the level of the right atrium. Endotracheal tube tip in satisfactory position above the valente. Nasogastric tube with the tube coiled upon itself within the esophagus the tip redirected cephalad at the level of the aortic arch. Recommend removing the esophageal gastric tube and re-attempt at placement. Lungs: Hyperinflation consistent with COPD/chronic bronchitis/centrilobular emphysema. Extensive mixed ground-glass interstitial lung disease and consolidated alveolar airspace disease left lung. Less significant involvement of the right lung base. Findings of a consistent with active pneumonitis/pneumonia. Pleural space: Potential small left pleural effusion. Heart/Mediastinum: Cardiac structures in configuration with arteriosclerosis. Bones/joints: Unremarkable for age. XR/XR chest 1V portable [id number] IMPRESSION: 1. Interval placement of a right internal jugular central venous catheter with the tip at the level right atrium. 2. No radiographic evidence of complication post procedure. 3. Bilateral pneumonitis/pneumonia involving primarily the left lung. 4. Nasogastric tube with the tube coiled upon itself within the esophagus the tip directed cephalad at the level of the aortic arch. Recommend removing and re-attempt at insertion.
--- NOTE | 2020-08-18 14:13 | PM.PN ---
Subjective Subjective: Interval history: Patient is intubated and sedated.Off sedation her GCS is:10t. In the last 24 h : Urine output ; 850 cc She has continued to be on levophed for presser support. Had no temperature spike. Other Vitals and labs have reviewed. Vitals/I&O/Wt Last Vital Signs Temp 99.3 F 08/18/20 08:00 Pulse 100 08/18/20 12:00 Resp 15 08/18/20 13:46 BP 89/50 08/18/20 11:00 Pulse Ox 94 08/18/20 12:00 08/17/20 08/18/20 08/18/20 22:59 06:59 14:59 Intake Total 3304.833 / 3304.833 167.530 / 3472.363 468.75 / 468.75 Output Total 850 / 850 Balance 3304.833 / 3304.833 -682.470 / 2622.363 468.75 / 468.75 Weight last 48 hrs Weight 68.039 kg Physical Exam Narrative: EXAM NARRATIVE: GCS is:10t. HENMT: COMMON NORMALS: normocephalic and atraumatic HEAD & SCALP: normocephalic and atraumatic Chest: COMMONS NORMALS: normal inspection of the chest Resp: OTHER: Coarse Breath sound over lt lung lucero,rt lung field is relatively clear. Cardio: COMMON NORMALS: regular rate, regular rhythm, S1 normal heart sound present, S2 normal heart sound present and Peripheral pulses 2+ throughout RATE: regular rate RHYTHM: regular rhythm HEART SOUNDS: S1 normal heart sound present and S2 normal heart sound present PERIPHERAL PULSES: Peripheral pulses 2+ throughout GI: COMMON NORMALS: Normal to inspection, nondistended, normoactive bowel sounds present, Soft to palpation, non-tender, No hepatosplenomegaly present and no masses AUSCULTATION: Yes normoactive bowel sounds PALPATION: Yes Soft to palpation and Yes No hepatosplenomegaly present RECTAL EXAM: deferred Extremity: COMMON NORMALS: no clubbing, cyanosis or edema and no pedal edema Urinary Catheter Management^: Bell: Cath Placed During This Visit: yes Reason for Continuing Indwelling Catheter: Accurate Measurement of Urinary Output in Critically Ill Patients Urinary Catheter Date of Insertion: 08/17/20 Urinary Catheter Time of Insertion: 16:53 Data : 08/18/20 04:38 08/18/20 04:38 Micro: Microbiology 08/17/20 16:46 Urine Culture - Preliminary Urine,Clean Catch Gram Negative Rods 08/18/20 04:38 Blood Culture - Preliminary Blood SPECIMEN COLLECTED 08/18/20 04:49 Blood Culture - Preliminary Blood SPECIMEN COLLECTED A&P Assessment and plan (1) Respiratory failure with hypoxia and hypercapnia: 2/2 Moderate ARDS 2/2 PNA r/o COVID : Rapid COVID Antigen is negative : CT chest w con: Bilateral consolidations and reticulonodular infiltrates, most confluent in the left upper lobe and at the right lung base. Findings are most likely secondary to multifocal pneumonia. Am ABG : Ph: 7.42, PCO2: 47, PO2: 85, FIO2: 60 % P/F : 85/0.6 : 141 Continue:Van,zoxyn,levofloxacin, Continue mechanical ventilation (VC/AC ) Monitor Xray chest,ABG Sputum Culture ,Blood culture,Urine Culture Status: Acute (2) Severe sepsis: 2/2 TO PNA r/o COVID : Rapid COVID Antigen is negative : CT chest w con: Bilateral consolidations and reticulonodular infiltrates, most confluent in the left upper lobe and at the right lung base. Findings are most likely secondary to multifocal pneumonia. Am ABG : Ph: 7.42, PCO2: 47, PO2: 85, FIO2: 60 % P/F : 85/0.6 : 141 Repeat lactic acid Am Procalcitonin Monitor Xray chest,ABG Sputum Culture ,Blood culture,Urine Culture Continue:Van,zoxyn,levofloxacin, Status: Acute (3) ARDS (adult respiratory distress syndrome): Status: Acute (4) Pneumonia: Status: Acute (5) COPD (chronic obstructive pulmonary disease): Status: Chronic Qualifiers: COPD type: COPD with acute exacerbation Qualified Code(s): J44.1 - Chronic obstructive pulmonary disease with (acute) exacerbation (6) A-fib: Status: Acute (7) UTI (urinary tract infection): Status: Acute (8) Thrombocytosis: Status: Acute (9) Elevated brain natriuretic peptide (BNP) level: Status: Acute (10) Elevated transaminase level: Status: Acute Additional A&P Information DVT PPX: On eliquis G.I PPX: On Famotidine Code status :Full code Attestations Medical Necessity Statement*: Patient needs to be in hospital for the management of respiratory failure 2/2 to PNA as well as sepsis Critical Care Time: Greater the 45 mins critical time was spent, Ventilator assessment,data review, lab review, central line placement Critical Care Time (min): 45 Coding Level of Care Code Acute Optomechanical Technician for g Fwd Diagnoses Respiratory failure with hypoxia and hypercapnia J96.91; J96.92 Severe sepsis A41.9; R65.20 ARDS (adult respiratory distress syndrome) J80 Pneumonia J18.9 COPD (chronic obstructive pulmonary disease) J44.1 COPD type: COPD with acute exacerbation A-fib I48.91 UTI (urinary tract infection) N39.0 Thrombocytosis D47.3 Elevated brain natriuretic peptide (BNP) level R79.89 Elevated transaminase level R74.01
--- NOTE | 2020-08-18 14:54 | PM.ACPR ---
Acute Procedures Central Line Placement^: Right IJ: Time out performed: Yes Patient placed on monitor/pulse ox: Yes MD prep: mask Central line prep: Chlorhexidine scrub Local anesthesia used: lidocaine 1% Ultrasound used for placement: Yes Central line lumen inserted: triple Post procedure: sutured in place, good blood return, all ports aspirated, flushed, capped and sterile dressing applied Post procedure x-ray: tip of catheter in good position and no pneumothorax seen Patient tolerated procedure: well Complications: none
--- NOTE | 2020-08-18 19:08 | PC.NURSE ---
wasted 60ml of versed per TORREY/MARSHALL BARBOSA
[2020-08-18] MEDS: budesonide 0.5 mg/2 mL Neb INHALATION (19:46)
[2020-08-18] MEDS: HYDROmorphone 1 mg/mL INJ 1 mL 2 MG IVP (20:30)
[2020-08-18] MEDS: dexmedetomidine 400 MCG in sodium chloride 0.9% (100 ml) 100 ML 12.4 MCG IV (20:44)
--- NOTE | 2020-08-18 23:58 | XRR_ITS ---
PROCEDURE INFORMATION: Exam: XR Chest, 1 View Exam date and time: 08/19/2020 12:34 AM Age: 65 years old Clinical indication: Device placement; Patient HX: AMS, short of breath, fever. Og tube placement TECHNIQUE: Imaging protocol: XR of the chest Views: 1 view. COMPARISON: CR (CHEST, ) 08/18/2020 2:42 PM FINDINGS: Tubes, catheters and devices: Endotracheal tube tip resides 4.0 cm above the valente. Enteric tube extends to the abdomen. Central vascular catheter tip extends to the cavoatrial junction. Lungs: Persistent diffuse consolidation throughout the left lung. Similar or slightly diminished consolidation at the right lower lobe. Pleural space: Pleural effusion or other blunting at the left costophrenic angle. Heart/Mediastinum: Stable heart size. Bones/joints: Unremarkable. XR/XR chest 1V portable [id number] IMPRESSION: 1. There is similar appearance of diffuse consolidation prominently involving the left lung. 2. Similar or mildly reduced consolidation right lower lobe. 3. Pleural thickening or small left pleural effusion.
[2020-08-19] VITALS (58 sets, daily range): BP systolic 96–216; BP diastolic 47–106; PULSE 65–99; RESP 15–27; TEMP 36.8; O2SAT 87–98
--- NOTE | 2020-08-19 | XRR_ITS ---
PROCEDURE INFORMATION: Exam: XR Chest, 1 View Exam date and time: 08/19/2020 9:30 AM Age: 65 years old Clinical indication: Shortness of breath; Additional info: Pna TECHNIQUE: Imaging protocol: XR of the chest Views: 1 view. COMPARISON: CR (CHEST, ) 08/19/2020 12:03 AM FINDINGS: Lungs: Similar bilateral pulmonary opacities. Pleural space: Unremarkable. No pleural effusion. No pneumothorax. Heart/Mediastinum: Stable cardiomediastinal silhouette. Vasculature: Calcified thoracic aorta. Bones/joints: Unremarkable. Other findings: Life support structures remain in similar position. XR/XR chest 1V portable [id number] IMPRESSION: Similar extensive consolidation throughout the left lung and infiltrate right lower lung allowing for differences of level of penetration.
[2020-08-19] MEDS: HYDROmorphone 1 mg/mL INJ 1 mL 0.5 MG IVP ×3 (00:03→15:25)
[2020-08-19] MEDS: ipratropium-albuterol 3 mL Neb INHALATION ×7 (00:35→23:43)
[2020-08-19] MEDS: acetylcysteine 200 mg/mL SDV 4 mL 100 MG INHALATION ×7 (00:36→23:43)
[2020-08-19] MEDS: vancomycin 1,250 MG/250 ML PIGGYBACK 250 MG IV ×2 (01:12→18:09)
[2020-08-19] MEDS: morphine 4 mg/mL SDV 1 mL 2 MG IVP ×2 (01:22→04:51)
[2020-08-19] MEDS: piperacillin-tazobactam 3.375 GM in sodium chloride 0.9% (plus) 50 ML IV ×3 (01:49→18:07)
[2020-08-19] MEDS: sodium chlor 0.9% + KCl 40 mEq 40 MEQ/1,000 ML BAG 75 MEQ IV ×2 (01:53→10:40)
[2020-08-19] MEDS: dexmedetomidine 400 MCG in sodium chloride 0.9% (100 ml) 100 ML 12.4 MCG IV ×3 (04:04→21:22)
[2020-08-19 04:36] LABS: ABG PCO2 59.2 mmHg (35-45); ABG PH Result 7.32 (7.35-7.45); Alveolar-Arterial Oxygen Gradi 32.3 mmHg (5-10); Arterial Blood Gas Hematocrit 35.7 % (37-47); Blood Gas Allen Test Pos; Blood Gas Sample Site Radial, right; Blood Gas Sample Type Arterial; Blood Gas Tidal Volume 0.45; Carboxyhemoglobin 0.6 %THgb (0.4-20.1); HCO3 ABG 30.3 mmol/L (22-26); HGB O2 Sat 92.1 % (95-100); Ionized Calcium Level - ABG 1.1 mmol/L (1.1-1.4); Methemoglobin 0.7 % (0.4-1.5); Oxygen Device VENT; Oxygen Saturation ABG 93.4; PO2 ABG 71.2 mmHg (80.0-100.0); Potassium Level - ABG 4.4 mmol/L (3.5-5.0); Total Hemoglobin 11.7 g/dL (12-16)
[2020-08-19 05:50] LABS: INR 1.18 (0.8-1.2)
[2020-08-19 05:51] LABS: Partial Thromboplastin Time 34.6 SECONDS (23.9-36.7)
[2020-08-19 05:58] LABS: Fibrinogen 795 mg/dL (174-498)
--- NOTE | 2020-08-19 06:00 | XRR_ITS ---
PROCEDURE INFORMATION: Exam: XR Chest, 1 View Exam date and time: 08/19/2020 12:28 AM Age: 65 years old Clinical indication: Dyspnea; Additional info: Pna TECHNIQUE: Imaging protocol: XR of the chest Views: 1 view. COMPARISON: CR (CHEST, ) 08/18/2020 2:42 PM FINDINGS: Tubes, catheters and devices: There is stable positioning life support tubing. Lungs: There are patchy ground-glass opacities present within the left hemithorax and right lung base appearing stable compared with yesterday's examination. Pleural space: Unremarkable. No pleural effusion. No pneumothorax. Heart/Mediastinum: Unremarkable. No cardiomegaly. Bones/joints: Unremarkable.
[2020-08-19] MEDS: apixaban 5 mg Tablet 2.5 MG PO ×2 (08:17→18:07)
[2020-08-19] MEDS: sennosides-docusate Tablet 1 TAB PO (08:17)
[2020-08-19] MEDS: famotidine 20 mg/2 mL INJ IVP (08:17)
[2020-08-19] MEDS: levofloxacin-dextrose 5% 750 mg-150 mL Premix 100 MG IV (08:18)
[2020-08-19] MEDS: budesonide 0.5 mg/2 mL Neb INHALATION ×2 (08:26→20:11)
[2020-08-19 09:46] LABS: Basophils # 0.1 10^3/uL (0.0-0.1); Basophils % 0.4 %; Hematocrit 29.7 % (37.0-47.0); Hemoglobin 9.2 g/dL (11.5-15.3); Lymphocytes # 1.2 10^3/uL (0.8-4.8); Lymphocytes % 4.1 %; Mean Corpuscular Hemoglobin 30.1 pg (28.0-34.0); Mean Corpuscular Volume 97.1 fL (81-99); Mean Platelet Volume 9.9 fL (7.4-10.4); Monocytes # 0.6 10^3/uL (0.2-0.9); Monocytes % 2.2 %; Neutrophils # 24.89 10^3/uL (1.8-7.7); Neutrophils % 89.1 %; Nucleated Red Blood Cells % 0.1 %; Platelet Count 499 10^3/cmm (130-400); Red Blood Count 3.06 10^6/uL (4.1-5.3); Red Cell Distribution Width 15.3 % (12.1-15.1); White Blood Count 27.9 10^3/uL (4.0-10.0)
[2020-08-19 10:12] LABS: Alanine Aminotransferase 34 U/L (0-33); Albumin Level 1.9 g/dL (3.5-5.2); Alkaline Phosphatase 136 IU/L (35-105); Anion Gap 10.9 (5-19); Aspartate Amino Transferase 51 U/L (0-32); Blood Urea Nitrogen 25 mg/dL (8-23); Carbon Dioxide 28 mmol/L (22-29); Chloride 108 mmol/L (98-107); Globulin 3.7 g/dL (1.3-4.6); Glomerular Filtration Rate 159.2 mL/min (90-130); Glucose 170 mg/dL (65-115); Magnesium 2.5 mg/dL (1.7-2.3); Osmolality Calculated 302 mOsm/kg (285-295); Potassium 4.9 mmol/L (3.5-5.1); Sodium 142 mmol/L (136-145); Total Bilirubin 0.2 mg/dL (0.15-1.2); Total Protein 5.6 g/dL (6.6-8.7)
[2020-08-19 10:13] LABS: Lactate (Lactic Acid level) 1.1 mmol/L (0.5-2.2)
[2020-08-19 10:25] LABS: Procalcitonin 2.41 ng/mL (0-0.5)
[2020-08-19] MEDS: FUROsemide 10 mg/mL SDV 2mL 20 MG IVP ×2 (12:52→18:08)
--- NOTE | 2020-08-19 13:10 | P.PN_ITS ---
Subjective Subjective: Interval history: Currently the patient is intubated and sedated. Off sedation GCS is 10T. Continues to remain on mechanical ventilation. Has remained afebrile, off pressor support, blood pressure is fine. Repeat a.m. chest X x-ray: Slight improvement. Covid PCR is negative. Other labs and vitals have been reviewed. Vitals/I&O/Wt Last Vital Signs Temp 97.7 F 08/18/20 20:00 Pulse 77 08/19/20 12:05 Resp 17 08/19/20 12:05 BP 121/68 08/19/20 12:00 Pulse Ox 96 08/19/20 12:05 08/18/20 08/19/20 08/19/20 22:59 06:59 14:59 Intake Total 1088.720 / 1657.470 775.403 / 2432.873 908.75 / 908.75 Output Total 950 / 950 250 / 1200 Balance 138.720 / 707.470 525.403 / 1232.873 908.75 / 908.75 Weight last 48 hrs Weight 68.039 kg Physical Exam Narrative: EXAM NARRATIVE: GCS 10T OFF SEDATION HENMT: COMMON NORMALS: normocephalic and atraumatic HEAD & SCALP: normocephalic and atraumatic Chest: CHEST: Yes Symmetrical chest wall rise Resp: EFFORT & INSPECTION: Yes symmetric chest movement OTHER: B/L Basal Crackles. Coarse Breath sounds b/l Cardio: COMMON NORMALS: regular rate, regular rhythm, S1 normal heart sound present, S2 normal heart sound present, No gallops present (Cardio), No murmurs present (Cardio), No rub (Cardio) and Peripheral pulses 2+ throughout RATE: regular rate RHYTHM: regular rhythm HEART SOUNDS: S1 normal heart sound present and S2 normal heart sound present PERIPHERAL PULSES: Peripheral pulses 2+ throughout GI: COMMON NORMALS: Normal to inspection, nondistended, normoactive bowel sounds present, Soft to palpation, non-tender, No hepatosplenomegaly present and no masses AUSCULTATION: Yes normoactive bowel sounds PALPATION: Yes Soft to palpation and Yes No hepatosplenomegaly present RECTAL EXAM: deferred Extremity: COMMON NORMALS: no clubbing, cyanosis or edema and no pedal edema Urinary Catheter Management^: Bell: Cath Placed During This Visit: yes Reason for Continuing Indwelling Catheter: Accurate Measurement of Urinary Output in Critically Ill Patients Urinary Catheter Date of Insertion: 08/17/20 Urinary Catheter Time of Insertion: 16:53 Data : 08/19/20 09:05 08/19/20 09:05 Micro: Microbiology 08/19/20 04:30 Gram Stain - Final Sputum - Endotracheal Tube Aspirate 08/17/20 16:46 Urine Culture - Final Urine,Clean Catch Escherichia coli 08/19/20 00:30 Bacterial Antigens - Final Urine,Voided 08/18/20 04:49 Blood Culture - Preliminary Blood NEGATIVE TO DATE 08/18/20 04:38 Blood Culture - Preliminary Blood NEGATIVE TO DATE 08/19/20 00:30 Legionella Urinary Antigen - Final Urine Catheterized A&P Assessment and plan (1) Respiratory failure with hypoxia and hypercapnia: 2/2 Moderate ARDS 2/2 PNA : CT chest w con: Bilateral consolidations and reticulonodular infiltrates, most confluent in the left upper lobe and at the right lung base. Findings are most likely secondary to multifocal pneumonia. ABG : Ph: 7.42, PCO2: 47, PO2: 85, FIO2: 60 % P/F : 85/0.6 : 141 ABG: Ph: 7.32, PCO2: 59, PO2: 71.2, FiO2: 55% Continue mechanical ventilation (VC/AC ) Monitor Xray chest,ABG Sputum Culture Blood culture:NTD Urine Culture:E.COLI: Zosyn sensitive Rapid COVID Antigen is negative : Continue:Van,zoxyn,levofloxacin. lasix 20 I.V *2 DOSE TODAY Status: Acute (2) Severe sepsis: 2/2 TO PNA : CT chest w con: Bilateral consolidations and reticulonodular infiltrates, most confluent in the left upper lobe and at the right lung base. Findings are most likely secondary to multifocal pneumonia. lactic acid: 4.1-->1.1 Procalcitonin :2.41 Rapid COVID Antigen is negative : Sputum Culture Blood culture:NTD Urine Culture:E.COLI: Zosyn sensitive Continue:Van,zoxyn,levofloxacin, Off Pressor support Rapid COVid :Negative Status: Acute (3) ARDS (adult respiratory distress syndrome): Status: Acute (4) Pneumonia: Status: Acute (5) COPD (chronic obstructive pulmonary disease): Status: Chronic Qualifiers: COPD type: COPD with acute exacerbation Qualified Code(s): J44.1 - Chronic obstructive pulmonary disease with (acute) exacerbation (6) A-fib: Status: Acute (7) UTI (urinary tract infection): Status: Acute (8) Thrombocytosis: Status: Acute (9) Elevated brain natriuretic peptide (BNP) level: Status: Acute (10) Elevated transaminase level: Status: Acute Additional A&P Information DVT PPX: On eliquis G.I PPX: On Famotidine Code status :Full code Attestations Medical Necessity Statement*: Patient needs to be in hospital for the management of R/F, Sepsis . Coding Level of Care Code Acute Aged Or Disabled Carer for [facility] Fwd Diagnoses Respiratory failure with hypoxia and hypercapnia J96.91; J96.92 Severe sepsis A41.9; R65.20 ARDS (adult respiratory distress syndrome) J80 Pneumonia J18.9 COPD (chronic obstructive pulmonary disease) J44.1 COPD type: COPD with acute exacerbation A-fib I48.91 UTI (urinary tract infection) N39.0 Thrombocytosis D47.3 Elevated brain natriuretic peptide (BNP) level R79.89 Elevated transaminase level R74.01
[2020-08-19 14:39] LABS: Quest SARS-CoV-2 RNA NOT DETECTED (NOT DETECTED)
--- NOTE | 2020-08-19 22:34 | PC.NURSE ---
Patient resting in bed in room still intubated. 23 @ the lip with a 7.5 size tube, 50% FIO2 on vent, Patients lung sounds are diminished with fine crackles noted in bilateral bases. BS active in all 4 quadrants, Bell in place and draining appropriately, bilateral pedal pulses palpated wiyth 3+ response. Patient responds to verbal commands but is within desired level of sedation. Call light within reach. Continue care.
[2020-08-20] VITALS (47 sets, daily range): BP systolic 85–168; BP diastolic 51–97; PULSE 74–117; RESP 16–29; TEMP 36.6–38; O2SAT 89–97
[2020-08-20] MEDS: piperacillin-tazobactam 3.375 GM in sodium chloride 0.9% (plus) 50 ML IV ×3 (01:53→18:42)
--- NOTE | 2020-08-20 03:10 | PC.NURSE ---
Patient still resting soundly. Call light within reach. Continue care.
[2020-08-20] MEDS: acetylcysteine 200 mg/mL SDV 4 mL 100 MG INHALATION ×5 (04:15→20:54)
[2020-08-20] MEDS: ipratropium-albuterol 3 mL Neb INHALATION ×5 (04:15→20:54)
[2020-08-20] MEDS: dexmedetomidine 400 MCG in sodium chloride 0.9% (100 ml) 100 ML 12.4 MCG IV ×3 (04:50→21:38)
[2020-08-20 04:55] LABS: Basophils # 0.2 10^3/uL (0.0-0.1); Basophils % 0.8 %; Eosinophils % 0.2 %; Hematocrit 30.5 % (37.0-47.0); Hemoglobin 9.2 g/dL (11.5-15.3); Lymphocytes # 1.8 10^3/uL (0.8-4.8); Lymphocytes % 9.5 %; Mean Corpuscular HGB Conc 30.2 g/dL (30.0-36.0); Mean Corpuscular Volume 96.2 fL (81-99); Mean Platelet Volume 10.2 fL (7.4-10.4); Monocytes # 0.6 10^3/uL (0.2-0.9); Monocytes % 3.2 %; Neutrophils # 14.51 10^3/uL (1.8-7.7); Nucleated Red Blood Cells # 0.1 /100WBC; Nucleated Red Blood Cells % 0.4 %; Platelet Count 486 10^3/cmm (130-400); Red Blood Count 3.17 10^6/uL (4.1-5.3); Red Cell Distribution Width 15.3 % (12.1-15.1); White Blood Count 18.8 10^3/uL (4.0-10.0)
[2020-08-20 05:08] LABS: Alanine Aminotransferase 32 U/L (0-33); Alkaline Phosphatase 204 IU/L (35-105); Anion Gap 13.4 (5-19); Aspartate Amino Transferase 45 U/L (0-32); Blood Urea Nitrogen 27 mg/dL (8-23); Calcium 8.4 mg/dL (8.5-10.5); Carbon Dioxide 33 mmol/L (22-29); Chloride 102 mmol/L (98-107); Globulin 3.9 g/dL (1.3-4.6); Glomerular Filtration Rate 123.1 mL/min (90-130); Glucose 171 mg/dL (65-115); Magnesium 2.1 mg/dL (1.7-2.3); Osmolality Calculated 307 mOsm/kg (285-295); Potassium 4.4 mmol/L (3.5-5.1); Sodium 144 mmol/L (136-145); Total Bilirubin 0.2 mg/dL (0.15-1.2); Total Protein 5.9 g/dL (6.6-8.7)
[2020-08-20 05:27] LABS: ABG PH Result 7.41 (7.35-7.45); Alveolar-Arterial Oxygen Gradi 29.5 mmHg (5-10); Arterial Blood Gas Hematocrit 40.4 % (37-47); Base Excess ABG 8.5 mmol/L (-2.0-2.0); Blood Gas Allen Test Pos; Blood Gas Sample Site Radial, right; Blood Gas Sample Type Arterial; Carboxyhemoglobin 0.8 %THgb (0.4-20.1); HGB O2 Sat 91.5 % (95-100); Ionized Calcium Level - ABG 1.2 mmol/L (1.1-1.4); Methemoglobin 0.9 % (0.4-1.5); Oxygen Device VENT; PO2 ABG 65.7 mmHg (80.0-100.0); Potassium Level - ABG 4.1 mmol/L (3.5-5.0); Total Hemoglobin 13.2 g/dL (12-16)
[2020-08-20 05:33] LABS: Slide Review Slide Review Perform
--- NOTE | 2020-08-20 06:03 | PC.NURSE ---
Uneventful Shift: Patient rested soundly all night. No s/s of distress or pain noted. Call light within reach. Continue care.
[2020-08-20] MEDS: budesonide 0.5 mg/2 mL Neb INHALATION ×2 (07:31→20:54)
[2020-08-20] MEDS: morphine 4 mg/mL SDV 1 mL 2 MG IVP (07:57)
[2020-08-20] MEDS: apixaban 5 mg Tablet 2.5 MG PO ×2 (09:22→18:42)
[2020-08-20] MEDS: sennosides-docusate Tablet 1 TAB PO (09:22)
[2020-08-20] MEDS: FUROsemide 10 mg/mL SDV 2mL 20 MG IVP (09:22)
[2020-08-20] MEDS: famotidine 20 mg/2 mL INJ IVP (09:22)
--- NOTE | 2020-08-20 09:38 | PC.CHAP ---
Pastoral Care Encounter/Spiritual Assessment Type of Contact [] Declined guest experience captain visit [] Patient/Family/Request visit [] Outpatient visit [] Follow-up visit [] Physician referral [] Code/Alert [] Routine visit [] Staff referral [] Actively dying [] Patient sleeping [] Family support [] [] Out of room [] Palliative care [] [] Receiving care in room [] Pre-surgical visit [] Trauma [] Long length of stay [x] ICU visit [] Other: Relational/Emotional Strength [] Patient feels connected with others/family/visitors/staff [] Distress [] Loneliness/isolation [] Abandonment Spirituality of Patient [] Person of Cony [] Attends Mormon of their [place] [] Believes in Prayer [] Reads Bible or Synagogue materials [] There are Spiritual issues to be addressed Wafer Fab Technician Interventions [x] Prayer [] Active listening [] Non-anxious presence [] Spiritual/emotional support [] Crisis/trauma care [] Spiritual counseling [] Bereavement support [] Provided bereavement packet [] Provided Bible/devotional materials [] Provided toy/stuffed animal, coloring book to patient or family member [] Provided Communion [] Anointing/[place] [] Salvation [x] Completed spiritual assessment [] Other: Impact on Illness or Injury [] Angry [] Fearful [] Anxious [] Often cries [] Exhaustion [] Unable to work [] Unable to attend cheondoism [] Unable to walk/stand [] Unable to read [] Unable to drive [] Unable to eat/drink [] Unable to sleep [] Unable to be with family [] Patient intubated [] Other: Summary Time spent with patient
--- NOTE | 2020-08-20 11:21 | PC.SOCIAL ---
Pg 2 IMM Explained to pt's spouse, Pg 2 IMM. Provided him a copy. No questions voiced. Signed, dated, & timed a copy & placed in chart.
--- NOTE | 2020-08-20 11:23 | PC.RESP ---
Smoking Cessation and Pulmonary Rehab packet sent to patient.
[2020-08-20] MEDS: vancomycin 1,250 MG/250 ML PIGGYBACK 250 MG IV (13:57)
--- NOTE | 2020-08-20 15:21 | P.PN_ITS ---
Subjective Subjective: Interval history: Patient is currently intubated and sedated. Off sedation GCS is 10 T. Vitals and labs have been reviewed. Continues to remain on mechanical ventilation. Has remained afebrile, continue to be off pressor support. Medications: Reviewed: Yes Vitals/I&O/Wt Last Vital Signs Temp 98.9 F 08/20/20 14:30 Pulse 92 08/20/20 14:30 Resp 22 H 08/20/20 14:30 BP 96/59 08/20/20 14:30 Pulse Ox 95 08/20/20 14:30 08/20/20 08/20/20 08/20/20 06:59 14:59 22:59 Intake Total 1170.087 / 2497.394 204 / 204 Output Total 700 / 2900 Balance 470.087 / -402.606 204 / 204 Physical Exam HENMT: COMMON NORMALS: normocephalic and atraumatic HEAD & SCALP: normocephalic and atraumatic Chest: CHEST: Yes Symmetrical chest wall rise Resp: EFFORT & INSPECTION: Yes symmetric chest movement OTHER: Diminished air entry at bases, no wheezing Cardio: COMMON NORMALS: regular rate, regular rhythm, S1 normal heart sound present, S2 normal heart sound present, No gallops present (Cardio), No murmurs present (Cardio), No rub (Cardio) and Peripheral pulses 2+ throughout RATE: regular rate RHYTHM: regular rhythm HEART SOUNDS: S1 normal heart sound present and S2 normal heart sound present PERIPHERAL PULSES: Peripheral pulses 2+ throughout GI: COMMON NORMALS: Normal to inspection, nondistended, normoactive bowel sounds present, Soft to palpation, non-tender, No hepatosplenomegaly present and no masses AUSCULTATION: Yes normoactive bowel sounds PALPATION: Yes Soft to palpation and Yes No hepatosplenomegaly present RECTAL EXAM: deferred Extremity: COMMON NORMALS: no pedal edema Urinary Catheter Management^: Bell: Cath Placed During This Visit: yes Reason for Continuing Indwelling Catheter: Accurate Measurement of Urinary Output in Critically Ill Patients Urinary Catheter Date of Insertion: 08/17/20 Urinary Catheter Time of Insertion: 16:53 Data : 08/20/20 03:48 08/20/20 03:48 Micro: Microbiology 08/19/20 04:30 Gram Stain - Final Sputum - Endotracheal Tube Aspirate Sputum Culture - Preliminary A&P Assessment and plan (1) Respiratory failure with hypoxia and hypercapnia: 2/2 Moderate ARDS 2/2 PNA : CT chest w con: Bilateral consolidations and reticulonodular infiltrates, most confluent in the left upper lobe and at the right lung base. Findings are most likely secondary to multifocal pneumonia. ABG : Ph: 7.42, PCO2: 47, PO2: 85, FIO2: 60 % P/F : 85/0.6 : 141 ABG: Ph: 7.32, PCO2: 59, PO2: 71.2, FiO2: 55% Continue mechanical ventilation (VC/AC ) Monitor Xray chest,ABG Sputum Culture Blood culture:NTD Urine Culture:E.COLI: Zosyn sensitive Rapid COVID Antigen is negative : Continue:Van,zoxyn, levofloxacin was discontinued on 08/18 I.V lasix as needed Status: Acute (2) Severe sepsis: 2/2 TO PNA : CT chest w con: Bilateral consolidations and reticulonodular infiltrates, most confluent in the left upper lobe and at the right lung base. Findings are most likely secondary to multifocal pneumonia. lactic acid: 4.1-->1.1 Procalcitonin :2.41 Rapid COVID Antigen is negative : Sputum Culture Blood culture:NTD Urine Culture:E.COLI: Zosyn sensitive Continue:Van,zoxyn, levofloxacin was discontinued on 08/18 Off Pressor support Rapid COVid :Negative Status: Acute (3) ARDS (adult respiratory distress syndrome): Status: Acute (4) Pneumonia: Status: Acute (5) COPD (chronic obstructive pulmonary disease): Status: Chronic Qualifiers: COPD type: COPD with acute exacerbation Qualified Code(s): J44.1 - Chronic obstructive pulmonary disease with (acute) exacerbation (6) A-fib: Status: Acute (7) UTI (urinary tract infection): Status: Acute (8) Thrombocytosis: Status: Acute (9) Elevated brain natriuretic peptide (BNP) level: Status: Acute (10) Elevated transaminase level: Status: Acute Additional A&P Information DVT PPX: On eliquis G.I PPX: On Famotidine Code status :Full code Attestations Medical Necessity Statement*: Patient needs to be in hospital for the management of sepsis Coding Level of Care Code Acute Veterans Rehabilitation Counselor for [facility] Fwd Exam Detailed Diagnoses Respiratory failure with hypoxia and hypercapnia J96.91; J96.92 Severe sepsis A41.9; R65.20 ARDS (adult respiratory distress syndrome) J80 Pneumonia J18.9 COPD (chronic obstructive pulmonary disease) J44.1 COPD type: COPD with acute exacerbation A-fib I48.91 UTI (urinary tract infection) N39.0 Thrombocytosis D47.3 Elevated brain natriuretic peptide (BNP) level R79.89 Elevated transaminase level R74.01
[2020-08-21] VITALS (46 sets, daily range): BP systolic 85–121; BP diastolic 50–80; PULSE 73–112; RESP 14–24; TEMP 37.2–38.2; O2SAT 93–99
[2020-08-21] MEDS: ipratropium-albuterol 3 mL Neb INHALATION ×6 (00:05→20:22)
[2020-08-21] MEDS: acetylcysteine 200 mg/mL SDV 4 mL 100 MG INHALATION ×6 (00:05→20:28)
[2020-08-21] MEDS: piperacillin-tazobactam 3.375 GM in sodium chloride 0.9% (plus) 50 ML IV ×3 (01:54→19:28)
--- NOTE | 2020-08-21 02:18 | PC.NURSE ---
Patient resting in bed. No s/s of distress or pain noted. Continue care.
[2020-08-21] MEDS: dexmedetomidine 400 MCG in sodium chloride 0.9% (100 ml) 100 ML 12.4 MCG IV ×3 (04:28→22:20)
[2020-08-21 04:53] LABS: ABG PCO2 48.3 mmHg (35-45); ABG PH Result 7.47 (7.35-7.45); Alveolar-Arterial Oxygen Gradi 26.2 mmHg (5-10); Arterial Blood Gas Hematocrit 42.3 % (37-47); Base Excess ABG 9.8 mmol/L (-2.0-2.0); Blood Gas Allen Test Pos; Blood Gas Sample Site Radial, right; Blood Gas Sample Type Arterial; Carboxyhemoglobin 0.8 %THgb (0.4-20.1); HGB O2 Sat 90.6 % (95-100); Ionized Calcium Level - ABG 1.1 mmol/L (1.1-1.4); Methemoglobin 0.9 % (0.4-1.5); Oxygen Device VENT; Oxygen Saturation ABG 92.1; PO2 ABG 65.2 mmHg (80.0-100.0); Potassium Level - ABG 4.3 mmol/L (3.5-5.0); Total Hemoglobin 13.8 g/dL (12-16)
--- NOTE | 2020-08-21 05:01 | PC.NURSE ---
Urine output 700mL so far thus shift. No s/s of distress. Continue care.
[2020-08-21 05:53] LABS: Hematocrit 29.2 % (37.0-47.0); Hemoglobin 9.2 g/dL (11.5-15.3); Mean Corpuscular HGB Conc 31.5 g/dL (30.0-36.0); Mean Corpuscular Hemoglobin 29.7 pg (28.0-34.0); Mean Corpuscular Volume 94.2 fL (81-99); Mean Platelet Volume 9.9 fL (7.4-10.4); Platelet Count 512 10^3/cmm (130-400); White Blood Count 16.4 10^3/uL (4.0-10.0)
[2020-08-21] MEDS: vancomycin 1,250 MG/250 ML PIGGYBACK 250 MG IV (06:03)
[2020-08-21 06:18] LABS: Alanine Aminotransferase 32 U/L (0-33); Albumin Level 1.9 g/dL (3.5-5.2); Alkaline Phosphatase 206 IU/L (35-105); Anion Gap 12.3 (5-19); Aspartate Amino Transferase 53 U/L (0-32); Blood Urea Nitrogen 24 mg/dL (8-23); Calcium 8.2 mg/dL (8.5-10.5); Carbon Dioxide 32 mmol/L (22-29); Chloride 101 mmol/L (98-107); Glomerular Filtration Rate 123.1 mL/min (90-130); Glucose 132 mg/dL (65-115); Magnesium 1.9 mg/dL (1.7-2.3); Osmolality Calculated 298 mOsm/kg (285-295); Potassium 4.3 mmol/L (3.5-5.1); Sodium 141 mmol/L (136-145); Total Bilirubin 0.4 mg/dL (0.15-1.2); Total Protein 5.9 g/dL (6.6-8.7)
--- NOTE | 2020-08-21 06:20 | PC.NURSE ---
Uneventful shift. No changes in patients status. Continue care.
[2020-08-21 07:14] LABS: Slide Review Slide Review Perform
[2020-08-21 07:25] LABS: Absolute Neutrophil 12.1 10^3/cmm (1.4-6.5); Absolute Segmented Neutrophil 10.8 10/cmm (1.6-7.1); Band Neutrophils Absolute 1.3 10^3/cmm (0.0-1.2); Hypochromasia 1+; Lymphocytes 19 %; Monocytes Absolute 0.5 10^3/cmm (0.1-0.6); Platelet Estimate Normal (Normal); Polychromasia Trace; Segmented Neutrophils 66 %; Total Cells Counted 100 (0-100)
[2020-08-21 07:26] LABS: Eosinophils 0 %
--- NOTE | 2020-08-21 07:42 | XR_ITS ---
WS: [id number] Exam: XR chest 1V portable [id number] Date/Time of Exam: 08/21/2020 7:42 AM Reason For Exam: intubated, pneumonia Comparison 08/19/2020. Infiltrate throughout the left lung shows some improvement when compared to the prior study. Right ba lori infiltrate is unchanged. The lungs remain fully inflated. Small left pleural effusion. Normal car diomediastinal structures and bony elements. An ET tube is in place ending about 5 cm above the gold a and in good position. A right IJ catheter extends into the right atrium unchanged in position. An N G tube is noted ending in the fundus of the stomach. The side-port of the tube is at the gastroesopha geal junction. XR/XR chest 1V portable [id number] IMPRESSION: 1. Improving infiltrate in the left lung since previous study. No other signifi cant change. 2. NG tube in place ending in the fundus of the stomach. The side-port of the t ube is at the GE junction. The tube should be advanced another 3 to 4 cm for op timal position.
[2020-08-21] MEDS: budesonide 0.5 mg/2 mL Neb INHALATION ×2 (07:59→20:22)
[2020-08-21] MEDS: azithromycin 500 MG in sodium chloride 0.9% 250 ML 250 MG IV (09:49)
[2020-08-21] MEDS: sennosides-docusate Tablet 1 TAB PO (09:49)
[2020-08-21] MEDS: apixaban 5 mg Tablet 2.5 MG PO ×2 (09:49→19:28)
[2020-08-21] MEDS: famotidine 20 mg/2 mL INJ IVP (09:50)
--- NOTE | 2020-08-21 15:01 | PM.PN ---
Subjective Subjective: Interval history: Currently Intubated and sedated off sedation GCS is 10 T . She had a sedation break of 30 mins was put back to sedation as she was getting agitated and was desturating .T max : 100.7 Good urine output: 3200 Net : + 2.2 Ls Vitals/I&O/Wt Last Vital Signs Temp 99.0 F 08/21/20 12:00 Pulse 87 08/21/20 12:00 Resp 18 08/21/20 14:16 BP 98/61 08/21/20 12:00 Pulse Ox 94 08/21/20 12:00 08/21/20 08/21/20 08/21/20 06:59 14:59 22:59 Intake Total 234.733 / 1103.180 204 / 204 Output Total 800 / 2500 Balance -565.267 / -1396.820 204 / 204 Physical Exam Narrative: EXAM NARRATIVE: GCS : 10 T off sedation. HENMT: COMMON NORMALS: normocephalic and atraumatic HEAD & SCALP: normocephalic and atraumatic Chest: CHEST: Yes Symmetrical chest wall rise Resp: EFFORT & INSPECTION: Yes symmetric chest movement OTHER: Diminished air entry at bases , No wheezing Cardio: COMMON NORMALS: regular rate, regular rhythm, S1 normal heart sound present, S2 normal heart sound present, No gallops present (Cardio), No murmurs present (Cardio), No rub (Cardio) and Peripheral pulses 2+ throughout RATE: regular rate RHYTHM: regular rhythm HEART SOUNDS: S1 normal heart sound present and S2 normal heart sound present PERIPHERAL PULSES: Peripheral pulses 2+ throughout GI: COMMON NORMALS: Normal to inspection, nondistended, normoactive bowel sounds present, Soft to palpation, non-tender, No hepatosplenomegaly present and no masses AUSCULTATION: Yes normoactive bowel sounds PALPATION: Yes Soft to palpation and Yes No hepatosplenomegaly present RECTAL EXAM: deferred Urinary Catheter Management^: Bell: Cath Placed During This Visit: yes Reason for Continuing Indwelling Catheter: Accurate Measurement of Urinary Output in Critically Ill Patients Urinary Catheter Date of Insertion: 08/17/20 Urinary Catheter Time of Insertion: 16:53 Data : 08/21/20 04:49 08/21/20 04:49 Micro: Microbiology 08/21/20 10:21 Blood Culture - Preliminary Blood SPECIMEN COLLECTED 08/21/20 10:27 Blood Culture - Preliminary Blood SPECIMEN COLLECTED 08/19/20 04:30 Gram Stain - Final Sputum - Endotracheal Tube Aspirate Sputum Culture - Final A&P Assessment and plan (1) Respiratory failure with hypoxia and hypercapnia: 2/2 Moderate ARDS 2/2 PNA : CT chest w con: Bilateral consolidations and reticulonodular infiltrates, most confluent in the left upper lobe and at the right lung base. Findings are most likely secondary to multifocal pneumonia. Continue mechanical ventilation (VC/AC ) Repeat Xray chest: on 08/21: Improving infiltrate in the left lung since previous study. No other significant change. Continue Serial ABG Sputum Culture: Blood culture:NTD Urine Culture:E.COLI: Zosyn sensitive Rapid COVID Antigen is negative : I.V lasix as needed Status: Acute (2) Severe sepsis: 2/2 TO PNA : CT chest w con: Bilateral consolidations and reticulonodular infiltrates, most confluent in the left upper lobe and at the right lung base. Findings are most likely secondary to multifocal pneumonia. lactic acid: 4.1-->1.1 Procalcitonin :2.41 Rapid COVID Antigen is negative : Sputum Culture Blood culture:NTD Urine Legionella antigen : Negative Urine Bacterial antigen : Negative Urine Culture:E.COLI: Zosyn sensitive Continue:Van,zoxyn ( 08/17 ) Azithromycin ( 08/21 ) levofloxacin was discontinued on 08/18 Rapid COVid :Negative Off Pressor support Status: Acute (3) ARDS (adult respiratory distress syndrome): Status: Acute (4) Pneumonia: Status: Acute (5) COPD (chronic obstructive pulmonary disease): Status: Chronic Qualifiers: COPD type: COPD with acute exacerbation Qualified Code(s): J44.1 - Chronic obstructive pulmonary disease with (acute) exacerbation (6) A-fib: Currently rate Controlled. 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
[2020-08-21] MEDS: morphine 4 mg/mL SDV 1 mL 2 MG IVP (23:51)
[2020-08-22] VITALS (64 sets, daily range): BP systolic 81–125; BP diastolic 48–67; PULSE 78–127; RESP 15–24; TEMP 36.6–37.6; O2SAT 93–100
[2020-08-22 00:24] LABS: Vancomycin Trough 4.3 ug/mL (10-15)
[2020-08-22] MEDS: acetylcysteine 200 mg/mL SDV 4 mL 100 MG INHALATION ×6 (00:33→20:05)
[2020-08-22] MEDS: ipratropium-albuterol 3 mL Neb INHALATION ×6 (00:34→20:06)
[2020-08-22] MEDS: vancomycin 1,250 MG/250 ML PIGGYBACK 250 MG IV ×2 (01:42→13:45)
[2020-08-22] MEDS: piperacillin-tazobactam 3.375 GM in sodium chloride 0.9% (plus) 50 ML IV ×3 (02:53→18:23)
[2020-08-22 04:18] LABS: Basophils # 0.1 10^3/uL (0.0-0.1); Basophils % 0.5 %; Eosinophils # 0.2 10^3/uL (0.0-0.8); Eosinophils % 1.3 %; Hematocrit 28.9 % (37.0-47.0); Hemoglobin 8.9 g/dL (11.5-15.3); Lymphocytes # 2.4 10^3/uL (0.8-4.8); Lymphocytes % 13.2 %; Mean Corpuscular HGB Conc 30.8 g/dL (30.0-36.0); Mean Corpuscular Hemoglobin 29.4 pg (28.0-34.0); Mean Corpuscular Volume 95.4 fL (81-99); Mean Platelet Volume 9.8 fL (7.4-10.4); Monocytes # 0.6 10^3/uL (0.2-0.9); Monocytes % 3.3 %; Neutrophils # 12.14 10^3/uL (1.8-7.7); Nucleated Red Blood Cells % 0 %; Platelet Count 465 10^3/cmm (130-400); Red Blood Count 3.03 10^6/uL (4.1-5.3); Red Cell Distribution Width 15.1 % (12.1-15.1); White Blood Count 18.4 10^3/uL (4.0-10.0)
[2020-08-22 04:49] LABS: ABG PCO2 48.5 mmHg (35-45); ABG PH Result 7.45 (7.35-7.45); Arterial Blood Gas Hematocrit 28.2 % (37-47); Base Excess ABG 8.3 mmol/L (-2.0-2.0); Blood Gas Allen Test Pos; Blood Gas Operator Identificat HARKR; Blood Gas Sample Site Radial, left; Blood Gas Sample Type Arterial; HCO3 ABG 33.3 mmol/L (22-26); Oxygen Device VENT; PO2 ABG 66.8 mmHg (80.0-100.0)
[2020-08-22 04:50] LABS: Alanine Aminotransferase 32 U/L (0-33); Alkaline Phosphatase 164 IU/L (35-105); Anion Gap 10.1 (5-19); Aspartate Amino Transferase 56 U/L (0-32); Blood Urea Nitrogen 18 mg/dL (8-23); Carbon Dioxide 32 mmol/L (22-29); Chloride 100 mmol/L (98-107); Globulin 3.8 g/dL (1.3-4.6); Glomerular Filtration Rate 221.9 mL/min (90-130); Glucose 123 mg/dL (65-115); Osmolality Calculated 287 mOsm/kg (285-295); Potassium 5.1 mmol/L (3.5-5.1); Sodium 137 mmol/L (136-145); Total Bilirubin 0.3 mg/dL (0.15-1.2); Total Protein 5.8 g/dL (6.6-8.7)
[2020-08-22 05:12] LABS: Slide Review Slide Review Perform
[2020-08-22] MEDS: HYDROmorphone 1 mg/mL INJ 1 mL 0.5 MG IVP ×2 (06:15→23:38)
[2020-08-22] MEDS: dexmedetomidine 400 MCG in sodium chloride 0.9% (100 ml) 100 ML 8.8 MCG IV ×2 (07:17→13:33)
--- NOTE | 2020-08-22 07:44 | USCV_ITS ---
Lisa Peterson Age: 65 Gender: F : 1955 Exam Date: 08/22/2020 12:13 Ordering Phys: Toan Null MD Technologist: Juliette Main Exam Location: [facility] [place] Indication: SOB BP: 125 / 65 HR: 89 Rhythm: Sinus Technical Quality: Adequate MEASUREMENTS (Male / Female) Normal Values 2D ECHO LV Diastolic Diameter PLAX 4.0 cm 4.2 - 5.9 / 3.9 - 5.3 cm LV Systolic Diameter PLAX 3.2 cm LV Chamber Size 3.1 cm IVS Diastolic Thickness 0.9 cm 0.6 - 1.0 / 0.6 - 0.9 cm IVS Systolic Thickness 1.2 cm LVPW Diastolic Thickness 1.6 cm 0.6 - 1.0 / 0.6 - 0.9 cm LVPW Systolic Thickness 1.9 cm RV Chamber Size 3.1 cm LVOT Diameter 2.0 cm LV Ejection Fraction 2D Teich 42.0 % LV Ejection Fraction MOD 2C 61.3 % LV Ejection Fraction 2C AL 61.2 % LA Diameter 3.7 cm LA Width 2.8 cm LA Height 4.0 cm RA Width 2.9 cm RA Height 3.4 cm Aorta at Sinotubular Diameter 2.8 cm M-MODE LV Diastolic Diameter MM 4.7 cm 4.2 - 5.9 / 3.9 - 5.3 cm LV Systolic Diameter MM 3.2 cm LV Ejection Fraction MM Teich 60.5 % IVS Diastolic Thickness MM 0.8 cm 0.6 - 1.0 / 0.6 - 0.9 cm IVS Systolic Thickness MM 0.9 cm LVPW Diastolic Thickness MM 1.0 cm 0.6 - 1.0 / 0.6 - 0.9 cm LVPW Systolic Thickness MM 0.9 cm Aortic Annulus Diameter 3.2 cm LA Ao Ratio MM 1.3 MV E Point Septal Separation 0.7 cm DOPPLER AV Peak Velocity 156.0 cm/s LVOT Peak Velocity 128.0 cm/s AV Area Cont Eq vti 2.4 cm squared AV Area Cont Eq pk 2.6 cm squared MV Area PHT 6.3 cm squared Mitral E to A Ratio 0.8 MV E' Velocity 78.0 cm/s TR Peak Velocity 230.0 cm/s TR Peak Gradient 21.2 mmHg TV Peak E Velocity 66.0 cm/s Right Atrial Pressure 15.0 mmHg Pulmonary Artery Systolic Pressu 36.2 mmHg PV Peak Velocity 77.0 cm/s RV Acceleration Time 0.2 s RV Ejection Time 0.4 s RV AcT/ET 0.5 FINDINGS Left Ventricle Normal left ventricular size. LV systolic function is normal with EF of 55 to 60%. Anteroseptal wall has mild hypokinesis. Normal left ventricular wall thickness. Diastolic function is indeterminate because of lack of tissue doppler. Right Ventricle The right ventricle is normal in size and function. Right Atrium The right atrium is normal in size. Left Atrium The left atrium is normal in size. Mitral Valve Structurally normal mitral valve without significant stenosis or prolapse. There is trace mitral regurgitation. Aortic Valve Structurally normal aortic valve without significant sclerosis or stenosis. There is no aortic regurgitation. Tricuspid Valve Structurally normal tricuspid valve without significant stenosis. Mild tricuspid regurgitation. Insufficient TR jet to calculate RVSP. Pulmonic Valve Structurally normal pulmonic valve without significant stenosis. There is no pulmonic regurgitation. Pericardium Normal pericardium without effusion. Aorta Normal ascending aorta dimension. CONCLUSIONS This is technically limited study. LV systolic function is normal with EF of 55 to 60%. Anteroseptal wall has mild hypokinesis. Diastolic function is indeterminate because of lack of tissue Doppler. Trace mitral regurgitation is noted. No significant valvular heart disease is present. Compared to prior study from 11/09/2019, anteroseptal wall has mild hypokinesis but otherwise no significant changes Robert Abad MD (Electronically Signed) Final Date: 22 August 2020 15:58 S
[2020-08-22] MEDS: budesonide 0.5 mg/2 mL Neb INHALATION ×2 (07:46→20:05)
[2020-08-22] MEDS: azithromycin 500 MG in sodium chloride 0.9% 250 ML 250 MG IV (08:36)
[2020-08-22] MEDS: apixaban 5 mg Tablet 2.5 MG PO ×2 (08:36→17:57)
[2020-08-22] MEDS: sennosides-docusate Tablet 1 TAB PO (08:37)
[2020-08-22] MEDS: famotidine 20 mg/2 mL INJ IVP (09:07)
--- NOTE | 2020-08-22 10:44 | P.PN_ITS ---
Subjective Subjective: Interval history: Patient is intubated and sedated and on mechanical ventilation. GCS off sedation : 10 T. Has remained A.febrile, good urine out put : 1150 ml. Net : + 3.9 L. Other vitals and Labs have been reviewed. Medications: Reviewed: Yes Vitals/I&O/Wt Last Vital Signs Temp 98.5 F 08/22/20 05:00 Pulse 80 08/22/20 07:48 Resp 17 08/22/20 09:43 BP 89/53 08/22/20 06:00 Pulse Ox 94 08/22/20 07:48 08/21/20 08/22/20 08/22/20 22:59 06:59 14:59 Intake Total 2339.567 / 2843.567 296.9 / 3140.467 8.1 / 8.1 Output Total 1000 / 1000 1150 / 2150 Balance 1339.567 / 1843.567 -853.1 / 990.467 8.1 / 8.1 Physical Exam Narrative: EXAM NARRATIVE: GCS Off sedation : 10 T HENMT: COMMON NORMALS: normocephalic and atraumatic HEAD & SCALP: normocephalic and atraumatic Chest: CHEST: Yes Symmetrical chest wall rise Resp: EFFORT & INSPECTION: Yes symmetric chest movement OTHER: B/L Coarse Breath Sounds improved compared to past. Cardio: COMMON NORMALS: regular rate, regular rhythm, S1 normal heart sound present, S2 normal heart sound present, No gallops present (Cardio), No murmurs present (Cardio), No rub (Cardio) and Peripheral pulses 2+ throughout RATE: regular rate RHYTHM: regular rhythm HEART SOUNDS: S1 normal heart sound present and S2 normal heart sound present PERIPHERAL PULSES: Peripheral pulses 2+ throughout GI: COMMON NORMALS: Normal to inspection, nondistended, normoactive bowel sounds present, Soft to palpation, non-tender, No hepatosplenomegaly present and no masses AUSCULTATION: Yes normoactive bowel sounds PALPATION: Yes Soft to palpation and Yes No hepatosplenomegaly present RECTAL EXAM: deferred Extremity: COMMON NORMALS: no clubbing, cyanosis or edema and no pedal edema Urinary Catheter Management^: Bell: Cath Placed During This Visit: yes Reason for Continuing Indwelling Catheter: Accurate Measurement of Urinary Output in Critically Ill Patients Urinary Catheter Date of Insertion: 08/17/20 Urinary Catheter Time of Insertion: 16:53 Data : 08/22/20 04:02 08/22/20 04:02 Micro: Microbiology 08/21/20 10:21 Blood Culture - Preliminary Blood NEGATIVE TO DATE 08/21/20 10:27 Blood Culture - Preliminary Blood NEGATIVE TO DATE 08/21/20 08:10 Urine Culture - Preliminary Urine Catheterized 08/19/20 04:30 Gram Stain - Final Sputum - Endotracheal Tube Aspirate Sputum Culture - Final A&P Assessment and plan (1) Respiratory failure with hypoxia and hypercapnia: 2/2 Moderate ARDS 2/2 PNA : CT chest w con: Bilateral consolidations and reticulonodular infiltrates, most confluent in the left upper lobe and at the right lung base. Findings are most likely secondary to multifocal pneumonia. Repeat Xray chest: on 08/21: Improving infiltrate in the left lung since previous study. No other significant ABG: pH: 7.45, PCO2: 48, PO2: 66.8, FiO2: 5O% P/F: 66/0.5 ( 08/22 ) 2D Echo: LVEF: 55 % TO 60 % , Anteroseptal wall has mild hypokinesis.No significant valvular heart disease is present. Continue mechanical ventilation CMV :Tv: 500 ml, rate: 16, PEEP: 6, FiO2: 50%, PIP: 20, I Time :1.2 lung compliance: 45, Status: Acute (2) Severe sepsis: 2/2 TO PNA : CT chest w con: Bilateral consolidations and reticulonodular infiltrates, most confluent in the left upper lobe and at the right lung base. Findings are most likely secondary to multifocal pneumonia. lactic acid: 4.1-->1.1 Procalcitonin :2.41 Rapid COVID Antigen is negative : Sputum Culture : NTD Blood culture:NTD Urine Legionella antigen : Negative Urine Bacterial antigen : Negative Urine Culture:E.COLI: Zosyn sensitive Continue:Van,zoxyn ( 08/17 ) Azithromycin ( 08/21 ) levofloxacin was discontinued on 08/18 Rapid COVid :Negative , PCR: Negative Off Pressor support Status: Acute (3) ARDS (adult respiratory distress syndrome): Status: Acute (4) Pneumonia: Status: Acute (5) COPD (chronic obstructive pulmonary disease): Status: Chronic Qualifiers: COPD type: COPD with acute exacerbation Qualified Code(s): J44.1 - C hronic obstructive pulmonary disease with (acute) exacerbation (6) A-fib: Currently rate Controlled. Continue Eliquis 2.5 mg q12 h daily Status: Acute (7) UTI (urinary tract infection): Status: Acute (8) Thrombocytosis: Status: Acute (9) Elevated brain natriuretic peptide (BNP) level: Status: Acute (10) Elevated transaminase level: Status: Acute Additional A&P Information DVT PPX: On eliquis G.I PPX: On Famotidine Code status :Full code Disposition : Home :Family updated. Attestations Medical Necessity Statement*: Patient needs to be in hospital for management of respiratory failure secondary to pneumonia. 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
--- NOTE | 2020-08-22 13:49 | PC.SOCIAL ---
IMM update Pg. 2 of IMM updated and copy left at bedside. CM will need to speak to patient/family closer to discharge.
[2020-08-22 17:59] LABS: Glucose Point of Care 103 mg/dL (70-110)
[2020-08-22 17:59] LABS: Glucose Point of Care 108 mg/dL (70-110)
[2020-08-22] MEDS: FUROsemide 10 mg/mL SDV 2mL 20 MG IVP (18:11)
[2020-08-22] MEDS: metoclopramide 5 mg/mL SDV 2 mL 10 MG IVP (18:19)
[2020-08-23] VITALS (65 sets, daily range): BP systolic 71–125; BP diastolic 47–72; PULSE 79–135; RESP 15–28; TEMP 36.6–38.2; O2SAT 92–98
[2020-08-23] MEDS: vancomycin 1,250 MG/250 ML PIGGYBACK 250 MG IV ×2 (02:35→14:06)
[2020-08-23] MEDS: piperacillin-tazobactam 3.375 GM in sodium chloride 0.9% (plus) 50 ML IV (03:44)
[2020-08-23] MEDS: ipratropium-albuterol 3 mL Neb INHALATION ×6 (04:26→20:12)
[2020-08-23] MEDS: acetylcysteine 200 mg/mL SDV 4 mL 100 MG INHALATION ×4 (04:26→11:35)
[2020-08-23 04:51] LABS: Basophils # 0.1 10^3/uL (0.0-0.1); Basophils % 0.4 %; Eosinophils # 0.2 10^3/uL (0.0-0.8); Eosinophils % 1.1 %; Hematocrit 28.1 % (37.0-47.0); Hemoglobin 8.7 g/dL (11.5-15.3); Lymphocytes # 2.1 10^3/uL (0.8-4.8); Lymphocytes % 12.2 %; Mean Corpuscular Hemoglobin 28.7 pg (28.0-34.0); Mean Corpuscular Volume 92.7 fL (81-99); Mean Platelet Volume 10.1 fL (7.4-10.4); Monocytes # 0.6 10^3/uL (0.2-0.9); Monocytes % 3.6 %; Neutrophils # 12.43 10^3/uL (1.8-7.7); Neutrophils % 70.5 %; Nucleated Red Blood Cells % 0 %; Platelet Count 509 10^3/cmm (130-400); Red Blood Count 3.03 10^6/uL (4.1-5.3); Red Cell Distribution Width 14.6 % (12.1-15.1); White Blood Count 17.6 10^3/uL (4.0-10.0)
--- NOTE | 2020-08-23 05:04 | XR_ITS ---
WS: [id number] Exam: XR chest 1V portable [id number] Date/Time of Exam: 08/23/2020 5:04 AM Reason For Exam: PNA Comparison 08/21/2020. Left pulmonary infiltrates show significant improvement since previous study. Right basal infiltrate is unchanged. The lungs are fully expanded. Trace left pleural effusion. Normal cardiomediastinal str uctures. ET tube remains in satisfactory position. An NG tube extends below the diaphragm but the tip is not visible. A right-sided central line extends into the right atrium. The mediastinum and bony t horax are unremarkable. XR/XR chest 1V portable [id number] IMPRESSION: 1. Left pulmonary infiltrates show significant improvement. Right pulmonary inf iltrates are unchanged. 2. ET tube remains in satisfactory position.
[2020-08-23 05:23] LABS: Alanine Aminotransferase 31 U/L (0-33); Albumin Level 2.2 g/dL (3.5-5.2); Alkaline Phosphatase 139 IU/L (35-105); Anion Gap 10.5 (5-19); Aspartate Amino Transferase 50 U/L (0-32); Blood Urea Nitrogen 16 mg/dL (8-23); Calcium 8.2 mg/dL (8.5-10.5); Carbon Dioxide 32 mmol/L (22-29); Chloride 92 mmol/L (98-107); Globulin 3.8 g/dL (1.3-4.6); Glomerular Filtration Rate 221.9 mL/min (90-130); Glucose 83 mg/dL (65-115); Osmolality Calculated 270 mOsm/kg (285-295); Potassium 4.5 mmol/L (3.5-5.1); Sodium 130 mmol/L (136-145); Total Bilirubin 0.5 mg/dL (0.15-1.2)
[2020-08-23 05:43] LABS: ABG PCO2 49.7 mmHg (35-45); ABG PH Result 7.43 (7.35-7.45); Arterial Blood Gas Hematocrit 30.5 % (37-47); Base Excess ABG 7.6 mmol/L (-2.0-2.0); Blood Gas Allen Test Pos; Blood Gas Operator Identificat JB; Blood Gas Sample Site Radial, right; Blood Gas Sample Type Arterial; Oxygen Device VENT
[2020-08-23] MEDS: acetaminophen 325 mg Tablet PO (05:46)
[2020-08-23] MEDS: dexmedetomidine 400 MCG in sodium chloride 0.9% (100 ml) 100 ML IV (06:11)
[2020-08-23 06:17] LABS: Slide Review Slide Review Perform
[2020-08-23] MEDS: budesonide 0.5 mg/2 mL Neb INHALATION ×2 (07:25→20:12)
[2020-08-23] MEDS: sennosides-docusate Tablet 1 TAB PO (08:22)
[2020-08-23] MEDS: apixaban 5 mg Tablet 2.5 MG PO ×2 (08:22→18:01)
[2020-08-23] MEDS: famotidine 20 mg/2 mL INJ IVP (08:22)
[2020-08-23] MEDS: sodium chloride 0.9% 250 ML IV (08:22)
[2020-08-23] MEDS: azithromycin 500 MG in sodium chloride 0.9% 250 ML 250 MG IV (08:23)
[2020-08-23] MEDS: metoprolol tartrate 1 mg/1 mL SDV 5 mL 2.5 MG IV (10:02)
--- NOTE | 2020-08-23 10:30 | PC.NURSE ---
Cheetah device used to see if patient may benefit from fluid bolus. No electrodes/monitor used per MD. BP prior to elevating legs - 89/53 after elevating legs for 2 minutes BP 100/65. Doctor ordered 250cc bolus. Following bolus, pressures improved with MAP >72.
[2020-08-23 13:41] LABS: Blood Gas Operator Identificat JB
--- NOTE | 2020-08-23 16:33 | P.PN_ITS ---
Subjective Subjective: Interval history: History and physical reviewed. Patient sedated and on ventilator. Medications: Reviewed: Yes Vitals/I&O/Wt Last Vital Signs Temp 97.9 F 08/23/20 13:30 Pulse 79 08/23/20 15:08 Resp 15 08/23/20 15:09 BP 101/61 08/23/20 15:00 Pulse Ox 93 08/23/20 15:08 08/23/20 08/23/20 08/23/20 06:59 14:59 22:59 Intake Total 523.035 / 1386.282 881.190 / 881.190 363.68 / 1244.870 Output Total 750 / 3100 650 / 650 Balance -226.965 / -1713.718 231.190 / 231.190 363.68 / 594.870 Physical Exam Narrative: EXAM NARRATIVE: General exam is a sedated white female Cardiovascular regular rate and rhythm, no murmur Lungs clear but with diminished breath sounds bilaterally Abdomen is soft with positive bowel sounds Extremities no cyanosis clubbing or edema Urinary Catheter Management^: Bell: Cath Placed During This Visit: yes Reason for Continuing Indwelling Catheter: Accurate Measurement of Urinary Output in Critically Ill Patients Urinary Catheter Date of Insertion: 08/17/20 Urinary Catheter Time of Insertion: 16:53 Data : 08/23/20 04:00 08/23/20 04:00 Micro: Microbiology 08/21/20 08:10 Urine Culture - Final Urine Catheterized 08/18/20 04:49 Blood Culture - Final Blood NO GROWTH AFTER 5 DAYS 08/18/20 04:38 Blood Culture - Final Blood NO GROWTH AFTER 5 DAYS Other data: Chest x-ray reviewed by me and bilateral pulmonary infiltrates are present. Echocardiogram demonstrates preserved EF Sputum culture was normal priti Urine culture demonstrated E. coli A&P Assessment and plan (1) Respiratory failure with hypoxia and hypercapnia: Secondary to ARDS/pneumonia Covid PCR negative Was still on 50% FiO2 this morning, which improved has improved to 35% this afternoon currently sedated with fentanyl, Precedex, Versed Potential extubation tomorrow morning Status: Acute (2) Severe sepsis: Secondary to pneumonia Continue vancomycin, Primaxin, Zithromax. Increased dose of Primaxin secondary to renal function Awaiting sputum culture Legionella antigen negative. Hypotensive, requiring norepinephrine. Monitor fluids closely. I gave her 500 cc today with improvement in heart rate and hemodynamic stability and still able to wean ventilator significantly. Status: Acute (3) ARDS (adult respiratory distress syndrome): Status: Acute (4) Pneumonia: Status: Acute (5) COPD (chronic obstructive pulmonary disease): Likely exacerbation Continue pulmonary toilet Add Solu-Medrol 60 mg every 12 hours Status: Chronic Qualifiers: COPD type: COPD with acute exacerbation Qualified Code(s): J44.1 - Chronic obstructive pulmonary disease with (acute) exacerbation (6) A-fib: Currently rate Controlled. Continue Eliquis 2.5 mg q12 h daily Metoprolol on hold secondary to hypotension Status: Acute (7) UTI (urinary tract infection): E. coli. Sensitive to current antibiotics. Status: Acute (8) Thrombocytosis: Status: Acute (9) Elevated brain natriuretic peptide (BNP) level: Status: Acute (10) Elevated transaminase level: Status: Acute Additional A&P Information Leukocytosis. Secondary to pneumonia. Febrile earlier this a.m. Primaxin dose adjusted. If fever recurs consider repeat cultures. Anemia. Hemoglobin overall stable Mild hyponatremia. Repeat tomorrow. Full code Eliquis will suffice for DVT prophylaxis GI prophylaxis with Pepcid Attestations Medical Necessity Statement*: Needs continued hospitalization secondary to respiratory failure requiring ventilatory support Critical Care Time: 41 minutes spent in critical care at bedside reviewing patient course, examining the patient, evaluating ventilator settings and discussing with nursing and respiratory therapy current plan forward to treat respiratory failure and achieve extubation. Patient with high risk of morbidity and mortality secondary to multiple comorbidities including respiratory failure, ARDS, pneumonia, UTI, etc. 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
[2020-08-23] MEDS: HYDROmorphone 1 mg/mL INJ 1 mL 0.5 MG IVP ×2 (19:04→22:41)
[2020-08-23 21:29] LABS: ABG PH Result 7.43 (7.35-7.45); Arterial Blood Gas Hematocrit 34.3 % (37-47); Base Excess ABG 3.1 mmol/L (-2.0-2.0); Blood Gas Allen Test Pos; Blood Gas Sample Site Radial, right; Blood Gas Sample Type Arterial; Carboxyhemoglobin 1.3 %THgb (0.4-20.1); HCO3 ABG 27.8 mmol/L (22-26); HGB O2 Sat 88.5 % (95-100); Ionized Calcium Level - ABG 1.2 mmol/L (1.1-1.4); Methemoglobin 0.1 % (0.4-1.5); Oxygen Device VENT; Oxygen Saturation ABG 89.8; PO2 ABG 58.8 mmHg (80.0-100.0); Potassium Level - ABG 4.3 mmol/L (3.5-5.0); Total Hemoglobin 11.2 g/dL (12-16)
[2020-08-24] VITALS (56 sets, daily range): BP systolic 83–139; BP diastolic 53–74; PULSE 71–113; RESP 11–25; TEMP 36.4–37; O2SAT 91–96
[2020-08-24] MEDS: ipratropium-albuterol 3 mL Neb INHALATION ×7 (00:14→23:17)
[2020-08-24] MEDS: dexmedetomidine 400 MCG in sodium chloride 0.9% (100 ml) 100 ML 8.8 MCG IV ×2 (00:20→19:31)
[2020-08-24] MEDS: vancomycin 1,250 MG/250 ML PIGGYBACK 250 MG IV ×2 (00:48→13:40)
[2020-08-24] MEDS: HYDROmorphone 1 mg/mL INJ 1 mL 0.5 MG IVP ×3 (02:42→19:22)
[2020-08-24 03:38] LABS: Basophils % 0.3 %; Hemoglobin 9.3 g/dL (11.5-15.3); Lymphocytes # 0.5 10^3/uL (0.8-4.8); Mean Corpuscular Hemoglobin 29.4 pg (28.0-34.0); Mean Corpuscular Volume 94.9 fL (81-99); Mean Platelet Volume 9.8 fL (7.4-10.4); Monocytes # 0.1 10^3/uL (0.2-0.9); Monocytes % 0.4 %; Neutrophils # 13.58 10^3/uL (1.8-7.7); Neutrophils % 87.6 %; Nucleated Red Blood Cells % 0 %; Platelet Count 700 10^3/cmm (130-400); Red Blood Count 3.16 10^6/uL (4.1-5.3); Red Cell Distribution Width 14.7 % (12.1-15.1); White Blood Count 15.5 10^3/uL (4.0-10.0)
[2020-08-24 04:09] LABS: Alanine Aminotransferase 28 U/L (0-33); Albumin Level 2.1 g/dL (3.5-5.2); Alkaline Phosphatase 123 IU/L (35-105); Anion Gap 14.5 (5-19); Aspartate Amino Transferase 44 U/L (0-32); Blood Urea Nitrogen 16 mg/dL (8-23); Calcium 8.1 mg/dL (8.5-10.5); Carbon Dioxide 27 mmol/L (22-29); Chloride 99 mmol/L (98-107); Glomerular Filtration Rate 354.3 mL/min (90-130); Glucose 174 mg/dL (65-115); Osmolality Calculated 287 mOsm/kg (285-295); Potassium 4.5 mmol/L (3.5-5.1); Sodium 136 mmol/L (136-145); Total Bilirubin 0.3 mg/dL (0.15-1.2); Total Protein 6.1 g/dL (6.6-8.7)
[2020-08-24 04:15] LABS: Magnesium 2.1 mg/dL (1.7-2.3)
[2020-08-24 04:16] LABS: ABG PCO2 41.5 mmHg (35-45); ABG PH Result 7.43 (7.35-7.45); Arterial Blood Gas Hematocrit 30.9 % (37-47); Blood Gas Operator Identificat HARKR; Blood Gas Sample Site Brachial, right; Blood Gas Sample Type Arterial; HCO3 ABG 27.6 mmol/L (22-26); Oxygen Device VENT
[2020-08-24 04:23] LABS: Slide Review Slide Review Perform
--- NOTE | 2020-08-24 07:00 | XR_ITS ---
WS: [id number] Exam: XR chest 1V portable [id number] Date/Time of Exam: 08/24/2020 7:00 AM Reason For Exam: Follow-up respiratory failure Comparison 08/23/2020. Infiltrates are noted throughout the left lung and right basal region. The right basal infiltrate arti ws improvement. No other change. ET tube remains in good position ending about 4 cm above the valente. An NG tube enters the stomach but the tip is not visible. A right-sided IJ catheter ends at the cavo atrial junction. Normal cardiomediastinal structures. XR/XR chest 1V portable [id number] IMPRESSION: 1. Bilateral pulmonary infiltrates. Infiltrates in the right lung base show berhane e improvement but there is no other change in the overall appearance the chest since the last study.
[2020-08-24] MEDS: budesonide 0.5 mg/2 mL Neb INHALATION ×2 (08:04→19:25)
--- NOTE | 2020-08-24 09:23 | PC.CHAP ---
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 visit [] Patient/Family/Request visit [] Outpatient visit [] Follow-up visit [] Physician referral [] Code/Alert [] Routine visit [] Staff referral [] Actively dying [] Patient sleeping [] Family support [] [] Out of room [] Palliative care [] [] Receiving care in room [] Pre-surgical visit [] Trauma [] Long length of stay [x] ICU visit [] Other: Relational/Emotional Strength [] Patient feels connected with others/family/visitors/staff [] Distress [] Loneliness/isolation [] Abandonment Spirituality of Patient [] Person of Cony [] Attends Gnosticism of their Cony [] Believes in Prayer [] Reads Bible or Mormon materials [] There are Spiritual issues to be addressed Manager Background Interventions [x] Prayer [] Active listening [] Non-anxious presence [] Spiritual/emotional support [] Crisis/trauma care [] Spiritual counseling [] Bereavement support [] Provided bereavement packet [] Provided Bible/devotional materials [] Provided toy/stuffed animal, coloring book to patient or family member [] Provided Communion [] Anointing/[place] [] Salvation [x] Completed spiritual assessment [] Other: Impact on Illness or Injury [] Angry [] Fearful [] Anxious [] Often cries [] Exhaustion [] Unable to work [] Unable to attend jehovah's witness [] Unable to walk/stand [] Unable to read [] Unable to drive [] Unable to eat/drink [] Unable to sleep [] Unable to be with family [] Patient intubated [] Other: Summary Time spent with patient
[2020-08-24] MEDS: apixaban 5 mg Tablet 2.5 MG PO ×2 (09:27→17:39)
[2020-08-24] MEDS: famotidine 20 mg/2 mL INJ IVP (09:27)
[2020-08-24] MEDS: sennosides-docusate Tablet 1 TAB PO (09:27)
[2020-08-24] MEDS: azithromycin 500 MG in sodium chloride 0.9% 250 ML 250 MG IV (09:28)
[2020-08-24] MEDS: dexmedetomidine 400 MCG in sodium chloride 0.9% (100 ml) 100 ML 12.4 MCG IV (09:46)
--- NOTE | 2020-08-24 10:48 | PC.SOCIAL ---
IMM Updated Updated pt's , Temo, on Pg 2 IMM. No questions voiced. Provided a copy to pt. Signed, dated, & timed copy in chart.
--- NOTE | 2020-08-24 13:05 | PM.PN ---
Subjective Subjective: Interval history: This is a 65-year-old female with history of COPD, chronic tobacco use on home oxygen who presented with worsening shortness of breath. Patient was admitted for community-acquired pneumonia A. fib heart RVR. Subsequently she was intubated in the ED. She is currently in the ICU. For ARDS. Other medical conditions include UTI. Patient is noted to be on less sedation this morning. Blood pressure was low. Discussed with nursing. She is awake and following some commands. Vitals/I&O/Wt Last Vital Signs Temp 97.6 F 08/24/20 12:00 Pulse 86 08/24/20 12:09 Resp 21 H 08/24/20 12:10 BP 115/66 08/24/20 12:00 Pulse Ox 94 08/24/20 12:09 08/23/20 08/24/20 08/24/20 22:59 06:59 14:59 Intake Total 871.781 / 2127.932 8228.30 / 2779.271 308.951 / 308.951 Output Total 500 / 1150 1600 / 2750 Balance 371.781 / 602.971 -573.70 / 29.271 308.951 / 308.951 Physical Exam Const: OTHER: Intubated and sedated opens eyes follows some commands Resp: OTHER: On vent support Cardio: COMMON NORMALS: regular rate RATE: regular rate GI: COMMON NORMALS: Soft to palpation and non-tender PALPATION: Yes Soft to palpation Extremity: COMMON NORMALS: normal to inspection Urinary Catheter Management^: Bell: Cath Placed During This Visit: yes Reason for Continuing Indwelling Catheter: Accurate Measurement of Urinary Output in Critically Ill Patients Urinary Catheter Date of Insertion: 08/17/20 Urinary Catheter Time of Insertion: 16:53 Data : 08/24/20 02:50 08/24/20 02:50 Micro: Microbiology 08/21/20 08:10 Urine Culture - Final Urine Catheterized A&P Assessment and plan (1) ARDS (adult respiratory distress syndrome): Status: Acute (2) Thrombocytosis: Status: Acute (3) UTI (urinary tract infection): Status: Acute (4) Respiratory failure with hypoxia and hypercapnia: Status: Acute (5) A-fib: Status: Acute (6) Pneumonia: Status: Acute Additional A&P Information (1) Respiratory failure with hypoxia and hypercapnia: Secondary to ARDS/pneumonia Covid PCR negative Wean sedation SBT for potential extubation in the next day (2) Severe sepsis: Secondary to pneumonia Continue vancomycin, Primaxin, Zithromax. Awaiting sputum culture Continue pressors to keep MAP greater than 60 and potentially systolic blood pressure greater than 90 (3) ARDS (adult respiratory distress syndrome): On vent support (4) Pneumonia: On antibiotics see above (5) COPD (chronic obstructive pulmonary disease): Continue steroids (6) A-fib: Currently rate Controlled. Continue Eliquis 2.5 mg q12 h daily Metoprolol on hold secondary to hypotension (7) UTI (urinary tract infection): E. coli. Sensitive to current antibiotics. Status: Acute . Attestations Medical Necessity Statement*: Lisa Cho Kristen's hospital stay will require greater than 2 midnights for sepsis Coding Level of Care Code Acute Aesthetics Instructor for [facility] Fwd Diagnoses ARDS (adult respiratory distress syndrome) J80 Thrombocytosis D47.3 UTI (urinary tract infection) N39.0 Respiratory failure with hypoxia and hypercapnia J96.91; J96.92 A-fib I48.91 Pneumonia J18.9
--- NOTE | 2020-08-24 17:55 | PC.NURSE ---
Pts belongings: took her home meds and he dentures home.
--- NOTE | 2020-08-24 18:15 | PC.NURSE ---
Shift summary: Pt remains intubated and sedated. She is calmer today than , per report, last night. She is on CPA at 40%. Peep and pressure support just decreased.( See RT charting). Levophed stopped this am, she has had no more need for it today. Versed decreased to 1mg/hr and Fentanyl decreased to 50 mcg/hr. Precedex decreased to mcg/kg/hr. Her has sat with her most of the afternoon.. Have been able to leave restraints off while he is at bedside. She does reach up and touch and try and adjust ETT Urine output of 750ml of yellow urine with sediment.
--- NOTE | 2020-08-24 19:26 | PC.NURSE ---
Report given to FAMILIA Cisneros.
[2020-08-24] MEDS: HYDROmorphone 1 mg/mL INJ 1 mL IVP (22:45)
[2020-08-25] VITALS (33 sets, daily range): BP systolic 100–143; BP diastolic 58–77; PULSE 90–116; RESP 15–37; TEMP 36.6–36.7; O2SAT 82–97
[2020-08-25] MEDS: HYDROmorphone 1 mg/mL INJ 1 mL 0.5 MG IVP ×2 (00:28→23:50)
[2020-08-25] MEDS: vancomycin 1,250 MG/250 ML PIGGYBACK 250 MG IV ×2 (00:53→13:47)
[2020-08-25 03:07] LABS: ABG PCO2 39.8 mmHg (35-45); ABG PH Result 7.46 (7.35-7.45); Arterial Blood Gas Hematocrit 28.7 % (37-47); Base Excess ABG 3.8 mmol/L (-2.0-2.0); Blood Gas Sample Site Brachial, right; Blood Gas Sample Type Arterial; Oxygen Device VENT; PO2 ABG 59.9 mmHg (80.0-100.0)
[2020-08-25] MEDS: HYDROmorphone 1 mg/mL INJ 1 mL IVP (03:19)
[2020-08-25 03:32] LABS: Basophils % 0.2 %; Hematocrit 27.9 % (37.0-47.0); Hemoglobin 8.6 g/dL (11.5-15.3); Lymphocytes # 0.7 10^3/uL (0.8-4.8); Lymphocytes % 5.6 %; Mean Corpuscular HGB Conc 30.8 g/dL (30.0-36.0); Mean Corpuscular Hemoglobin 29.2 pg (28.0-34.0); Mean Corpuscular Volume 94.6 fL (81-99); Mean Platelet Volume 9.7 fL (7.4-10.4); Monocytes # 0.5 10^3/uL (0.2-0.9); Monocytes % 3.8 %; Neutrophils # 10.67 10^3/uL (1.8-7.7); Nucleated Red Blood Cells % 0 %; Platelet Count 714 10^3/cmm (130-400); Red Blood Count 2.95 10^6/uL (4.1-5.3); Red Cell Distribution Width 14.6 % (12.1-15.1); White Blood Count 12.5 10^3/uL (4.0-10.0)
[2020-08-25] MEDS: lanolin oint 7 gm 1 APPLIC TOPICAL (03:37)
[2020-08-25] MEDS: ipratropium-albuterol 3 mL Neb INHALATION ×5 (04:05→23:55)
[2020-08-25 04:33] LABS: Alanine Aminotransferase 28 U/L (0-33); Albumin Level 2.4 g/dL (3.5-5.2); Alkaline Phosphatase 100 IU/L (35-105); Anion Gap 11.4 (5-19); Aspartate Amino Transferase 33 U/L (0-32); Blood Urea Nitrogen 22 mg/dL (8-23); Calcium 8.2 mg/dL (8.5-10.5); Carbon Dioxide 27 mmol/L (22-29); Chloride 101 mmol/L (98-107); Globulin 3.5 g/dL (1.3-4.6); Glomerular Filtration Rate 221.9 mL/min (90-130); Glucose 159 mg/dL (65-115); Osmolality Calculated 289 mOsm/kg (285-295); Potassium 3.4 mmol/L (3.5-5.1); Sodium 136 mmol/L (136-145); Total Bilirubin 0.3 mg/dL (0.15-1.2); Total Protein 5.9 g/dL (6.6-8.7)
[2020-08-25] MEDS: dexmedetomidine 400 MCG in sodium chloride 0.9% (100 ml) 100 ML 8.8 MCG IV (04:35)
--- NOTE | 2020-08-25 04:50 | PC.NURSE ---
Addendum entered by Jose Price RN 08/25/20 04:51: Verified waste with FAMILIA Cisneros Original Note: FENTANYL WASTE Wasted 50 mL IV fentanyl drip with Tereso Price RN.
--- NOTE | 2020-08-25 06:17 | PC.NURSE ---
VERSED WASTE 30 mL versed drip wasted with Marcus Cho RN
[2020-08-25 06:23] LABS: Neutrophils % 90.4 %
[2020-08-25] MEDS: apixaban 5 mg Tablet 2.5 MG PO ×2 (08:45→18:23)
[2020-08-25] MEDS: metoprolol tartrate 25 mg Tablet PO ×2 (08:46→18:23)
[2020-08-25] MEDS: famotidine 20 mg/2 mL INJ IVP (08:48)
[2020-08-25] MEDS: azithromycin 500 MG in sodium chloride 0.9% 250 ML 250 MG IV (08:51)
[2020-08-25] MEDS: budesonide 0.5 mg/2 mL Neb INHALATION ×2 (08:58→19:25)
[2020-08-25] MEDS: acetaminophen 325 mg Tablet PO (11:59)
[2020-08-25 12:54] LABS: Vancomycin Trough 6.9 ug/mL (10-15)
--- NOTE | 2020-08-25 14:13 | PM.PN ---
Subjective Subjective: Interval history: S/P Extubation. Currently saturating well on 6ls oxygen via nc Vitals and labs have been reviewed. Medications: Reviewed: Yes Vitals/I&O/Wt Last Vital Signs Temp 97.8 F 08/25/20 08:00 Pulse 103 H 08/25/20 09:15 Resp 25 H 08/25/20 09:00 BP 129/65 08/25/20 10:00 Pulse Ox 97 08/25/20 10:00 08/24/20 08/25/20 08/25/20 22:59 06:59 14:59 Intake Total 446.358 / 1145.816 680.509 / 1826.325 578.367 / 578.367 Output Total 750 / 750 550 / 1300 Balance -303.642 / 395.816 130.509 / 526.325 578.367 / 578.367 Physical Exam Narrative: EXAM NARRATIVE: GCS Off sedation : 10 T Const: COMMON NORMALS: patient oriented x3 HENMT: COMMON NORMALS: normocephalic and atraumatic HEAD & SCALP: normocephalic and atraumatic Chest: CHEST: Yes Symmetrical chest wall rise Resp: COMMON NORMALS: normal respiratory effort and clear to auscultation bilaterally EFFORT & INSPECTION: Yes symmetric chest movement AUSCULTATION: clear to auscultation bilaterally OTHER: B/L Coarse Breath Sounds improved compared to past. Cardio: COMMON NORMALS: regular rate, regular rhythm, S1 normal heart sound present, S2 normal heart sound present, No gallops present (Cardio), No murmurs present (Cardio), No rub (Cardio) and Peripheral pulses 2+ throughout RATE: regular rate RHYTHM: regular rhythm HEART SOUNDS: S1 normal heart sound present and S2 normal heart sound present PERIPHERAL PULSES: Peripheral pulses 2+ throughout GI: COMMON NORMALS: Normal to inspection, nondistended, normoactive bowel sounds present, Soft to palpation, non-tender, No hepatosplenomegaly present and no masses AUSCULTATION: Yes normoactive bowel sounds PALPATION: Yes Soft to palpation and Yes No hepatosplenomegaly present RECTAL EXAM: deferred Extremity: COMMON NORMALS: no clubbing, cyanosis or edema and no pedal edema Neuro: COMMON NORMALS: patient oriented x3 Urinary Catheter Management^: Bell: Cath Placed During This Visit: yes Reason for Continuing Indwelling Catheter: Accurate Measurement of Urinary Output in Critically Ill Patients Urinary Catheter Date of Insertion: 08/17/20 Urinary Catheter Time of Insertion: 16:53 Data : 08/26/20 04:29 08/26/20 04:29 A&P Assessment and plan (1) ARDS (adult respiratory distress syndrome): Status: Acute (2) Thrombocytosis: Status: Acute (3) UTI (urinary tract infection): E. coli. Sensitive to current antibiotics. Status: Acute (4) Respiratory failure with hypoxia and hypercapnia: Secondary to ARDS/pneumonia Covid PCR negative Was still on 50% FiO2 this morning, which improved has improved to 35% this afternoon currently sedated with fentanyl, Precedex, Versed Potential extubation tomorrow morning Status: Acute (5) A-fib: Currently rate Controlled. Continue Eliquis 2.5 mg q12 h daily Metoprolol on hold secondary to hypotension Status: Acute (6) Pneumonia: Status: Acute Additional A&P Information (1) Respiratory failure with hypoxia and hypercapnia: Secondary to ARDS/pneumonia Covid PCR negative Wean sedation SBT for potential extubation in the next day (2) Severe sepsis: Secondary to pneumonia Continue vancomycin, Primaxin, Zithromax. Awaiting sputum culture Continue pressors to keep MAP greater than 60 and potentially systolic blood pressure greater than 90 (3) ARDS (adult respiratory distress syndrome): On vent support (4) Pneumonia: On antibiotics see above (5) COPD (chronic obstructive pulmonary disease): Continue steroids (6) A-fib: Currently rate Controlled. Continue Eliquis 2.5 mg q12 h daily Metoprolol on hold secondary to hypotension (7) UTI (urinary tract infection): E. coli. Sensitive to current antibiotics. Status: Acute . Attestations Medical Necessity Statement*: Patient needs to be in hospital for the management of Sepsis, R/F Coding Level of Care Code Acute Certified Surgical First Assistant for [facility] Fwd Diagnoses ARDS (adult respiratory distress syndrome) J80 Thrombocytosis D47.3 UTI (urinary tract infection) N39.0 Respiratory failure with hypoxia and hypercapnia J96.91; J96.92 A-fib I48.91 Pneumonia J18.9
--- NOTE | 2020-08-25 19:22 | PC.NURSE ---
Report given to FAMILIA Garcia.
--- NOTE | 2020-08-25 19:22 | PC.NURSE ---
Sift summary: Pt has remained on 6lpm/NC through out the day. NO respiratory distress noted. Pt has been out of bed several times to sit in chair or on bedside commode. Pt weak, needs two assist. Pt has ate minimal amount of her meals. Her urine output was 1150, yellow with a decrease in sediment from yesterday. was at bedside throughout visiting hours, he even assisted her to BSC .
[2020-08-26] VITALS (27 sets, daily range): BP systolic 106–136; BP diastolic 52–76; PULSE 81–106; RESP 16–28; TEMP 36.8–37.3; O2SAT 91–99
[2020-08-26] MEDS: LORazepam 0.5 mg Tablet PO (01:38)
[2020-08-26] MEDS: vancomycin 1,250 MG/250 ML PIGGYBACK 250 MG IV ×3 (01:39→17:30)
[2020-08-26 05:08] LABS: Basophils % 0.2 %; Hematocrit 27.6 % (37.0-47.0); Hemoglobin 8.6 g/dL (11.5-15.3); Lymphocytes % 8.5 %; Mean Corpuscular HGB Conc 31.2 g/dL (30.0-36.0); Mean Corpuscular Hemoglobin 29.4 pg (28.0-34.0); Mean Corpuscular Volume 94.2 fL (81-99); Mean Platelet Volume 10.3 fL (7.4-10.4); Monocytes # 1.1 10^3/uL (0.2-0.9); Monocytes % 9.4 %; Neutrophils % 80.3 %; Nucleated Red Blood Cells % 0 %; Platelet Count 761 10^3/cmm (130-400); Red Blood Count 2.93 10^6/uL (4.1-5.3); Red Cell Distribution Width 14.7 % (12.1-15.1); White Blood Count 11.8 10^3/uL (4.0-10.0)
[2020-08-26 06:44] LABS: Alanine Aminotransferase 32 U/L (0-33); Albumin Level 2.3 g/dL (3.5-5.2); Alkaline Phosphatase 96 IU/L (35-105); Aspartate Amino Transferase 33 U/L (0-32); Blood Urea Nitrogen 16 mg/dL (8-23); Carbon Dioxide 23 mmol/L (22-29); Chloride 105 mmol/L (98-107); Globulin 3.3 g/dL (1.3-4.6); Glomerular Filtration Rate 221.9 mL/min (90-130); Glucose 119 mg/dL (65-115); Magnesium 1.9 mg/dL (1.7-2.3); Osmolality Calculated 288 mOsm/kg (285-295); Sodium 138 mmol/L (136-145); Total Bilirubin 0.3 mg/dL (0.15-1.2); Total Protein 5.6 g/dL (6.6-8.7)
[2020-08-26] MEDS: budesonide 0.5 mg/2 mL Neb INHALATION ×2 (09:02→19:56)
[2020-08-26] MEDS: ipratropium-albuterol 3 mL Neb INHALATION ×5 (09:02→23:33)
[2020-08-26] MEDS: azithromycin 500 MG in sodium chloride 0.9% 250 ML 250 MG IV (09:40)
[2020-08-26] MEDS: apixaban 5 mg Tablet 2.5 MG PO ×2 (09:42→17:30)
[2020-08-26] MEDS: famotidine 20 mg/2 mL INJ IVP (09:42)
[2020-08-26] MEDS: metoprolol tartrate 25 mg Tablet PO ×2 (09:42→17:30)
--- NOTE | 2020-08-26 10:30 | PC.SOCIAL ---
IMM Updated Updated pt Pg 2 IMM. No questions voiced. Provided pt a copy. Signed, dated, & timed copy in chart.
--- NOTE | 2020-08-26 10:56 | PM.PN ---
Subjective Subjective: Interval history: Ms. Peterson is doing fine. Currently she is down to 3Ls oxygen ( her home oxygen requirement) Though she is still weak. Has remained afebrile.Other vitals and labs have been reviewed. Medications: Reviewed: Yes Vitals/I&O/Wt Last Vital Signs Temp 98.5 F 08/26/20 10:00 Pulse 98 08/26/20 10:00 Resp 27 H 08/26/20 10:00 BP 120/64 08/26/20 10:00 Pulse Ox 94 08/26/20 10:00 08/25/20 08/26/20 08/26/20 22:59 06:59 14:59 Intake Total 660 / 1888.367 550 / 2438.367 200 / 200 Output Total 2850 / 2850 950 / 3800 Balance -2190 / -961.633 -400 / -1361.633 200 / 200 Physical Exam Const: COMMON NORMALS: patient oriented x3 HENMT: COMMON NORMALS: normocephalic, atraumatic and external ears normal HEAD & SCALP: normocephalic and atraumatic EXTERNAL EAR: Yes external ears normal Resp: COMMON NORMALS: clear to auscultation bilaterally EFFORT & INSPECTION: Yes symmetric chest movement AUSCULTATION: clear to auscultation bilaterally Cardio: COMMON NORMALS: regular rate, regular rhythm, S1 normal heart sound present, S2 normal heart sound present, No gallops present (Cardio), No murmurs present (Cardio), No rub (Cardio) and Peripheral pulses 2+ throughout RATE: regular rate RHYTHM: regular rhythm HEART SOUNDS: S1 normal heart sound present and S2 normal heart sound present PERIPHERAL PULSES: Peripheral pulses 2+ throughout GI: COMMON NORMALS: Normal to inspection, nondistended, normoactive bowel sounds present, Soft to palpation, non-tender, No hepatosplenomegaly present and no masses AUSCULTATION: Yes normoactive bowel sounds PALPATION: Yes Soft to palpation and Yes No hepatosplenomegaly present RECTAL EXAM: deferred Extremity: COMMON NORMALS: no clubbing, cyanosis or edema and no pedal edema Neuro: COMMON NORMALS: patient oriented x3 Urinary Catheter Management^: Bell: Cath Placed During This Visit: yes Reason for Continuing Indwelling Catheter: Accurate Measurement of Urinary Output in Critically Ill Patients Urinary Catheter Date of Insertion: 08/17/20 Urinary Catheter Time of Insertion: 16:53 Data : 08/26/20 04:29 08/26/20 04:29 Micro: Microbiology 08/21/20 10:21 Blood Culture - Final Blood NO GROWTH AFTER 5 DAYS 08/21/20 10:27 Blood Culture - Final Blood NO GROWTH AFTER 5 DAYS A&P Assessment and plan (1) ARDS (adult respiratory distress syndrome): (1) Respiratory failure with hypoxia and hypercapnia: 2/2 Moderate ARDS 2/2 PNA : CT chest w con: Bilateral consolidations and reticulonodular infiltrates, most confluent in the left upper lobe and at the right lung base. Findings are most likely secondary to multifocal pneumonia. Xray chest: on 08/21: Improving infiltrate in the left lung since previous study. No other significant Xray chest: on 08/24: Bilateral pulmonary infiltrates. Infiltrates in the right lung base show some improvement but there is no other change in the overall appearance the chest since the last study. ABG: pH: 7.45, PCO2: 48, PO2: 66.8, FiO2: 5O% P/F: 66/0.5 ( 08/22 ) ABG : Ph :7.46, PCO2:39, PO2: 59, FIO2: 40 % P/F : 59/0.4 ( 08/25) Covid PCR negative 2D Echo: LVEF: 55 % TO 60 % , Anteroseptal wall has mild hypokinesis.No significant valvular heart disease is present. Initially on mechanical ventilation CMV :Tv: 500 ml, rate: 16, PEEP: 6, FiO2: 50%, PIP: 20, I Time :1.2 lung compliance: 45 S/P Extubation on 08/24 currently saturating well on 3Ls oxygen via nc Status: Acute (2) Respiratory failure with hypoxia and hypercapnia: #1 Status: Acute (3) Severe sepsis: 2/2 TO PNA : CT chest w con: Bilateral consolidations and reticulonodular infiltrates, most confluent in the left upper lobe and at the right lung base. Findings are most likely secondary to multifocal pneumonia. lactic acid: 4.1-->1.1 Procalcitonin :2.41 Rapid COVID Antigen is negative : Covid PCR negative Sputum Culture : NTD Blood culture:NTD Urine Legionella antigen : Negative Urine Bacterial antigen : Negative Urine Culture:E.COLI: Zosyn sensitive Repeat Urine Culture :Negative Initially on :Van,zoxyn ( 08/17 ) Azithromycin ( 08/21-09/26 ) levofloxacin was discontinued on 08/18 Zosyn DC on 08/24 Imipenam : 08/25 - T.D Off Pressor support Status: Acute (4) UTI (urinary tract infection): E. coli. Sensitive to current antibiotics. Status: Acute (5) A-fib: Currently rate Controlled. 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 Likely discharge in 2-3 days. Attestations Medical Necessity Statement*: Patient needs to be in hospital for the management of post ARDS/Sepsis/ recovery. Coding Level of Care Code Acute Keyliner for [facility] Fwd Diagnoses ARDS (adult respiratory distress syndrome) J80 Respiratory failure with hypoxia and hypercapnia J96.91; J96.92 Severe sepsis A41.9; R65.20 UTI (urinary tract infection) N39.0 A-fib I48.91 COPD (chronic obstructive pulmonary disease) J44.1 COPD type: COPD with acute exacerbation Thrombocytosis D47.3
--- NOTE | 2020-08-26 18:20 | PC.NURSE ---
Report faxed to CSU. Awaiting room to be cleaned.
--- NOTE | 2020-08-26 18:20 | PC.NURSE ---
Shift summary: Pt now on 3lpm/NC, her same level of home O2. NO signs of respiratory distress noted even during exertion. Pt has wanted to rest in the bed most of the day. Says she is very cold. Pt needs encouragement to get up and move. She has a #20 IV in Left forearm , IV inserted early this am. She has had a Bm today. Urine output of 1250 yellow urine sediment amount has lessened from yesterday. has been at bedside throughout most of visiting hours, helping and encouraging her.
--- NOTE | 2020-08-26 18:55 | PC.NURSE ---
Report called to CSU, given to MERCEDES Newton.. Room 112-2 not ready, still needs to be cleaned.
--- NOTE | 2020-08-26 19:10 | PC.NURSE ---
Report given to FAMILIA Cleaning ICU.
--- NOTE | 2020-08-26 20:13 | PC.NURSE ---
Pt transferred to [facility] 112-2 by bed.
--- NOTE | 2020-08-26 20:19 | PC.NURSE ---
PT ARRIVED TO ROOM 112-2 VIA BED. PT WAS ORIENTATED TO ROOM. PT IS RESTING IN BED WATCHING TV AT THIS TIME. PT DENIES PAIN. VS WNL. PT IS IN A NORMAL SINUS RHYTHM AND IS CURRENTLY ON 5L OF 02 VIA CO. WILL CONTINUE TO MONITOR.
[2020-08-27] VITALS (20 sets, daily range): BP systolic 106–119; BP diastolic 57–68; PULSE 81–115; RESP 12–30; TEMP 36.6–36.9; O2SAT 93–98
[2020-08-27] MEDS: vancomycin 1,250 MG/250 ML PIGGYBACK 250 MG IV (02:41)
--- NOTE | 2020-08-27 02:44 | PC.NURSE ---
IV PUMP IS NOT WORKING WELL. THERE ARE NO OTHER AVAILABLE PUMPS AT THIS TIME. VANC WAS STARTED LATE D/T THIS REASON.
[2020-08-27] MEDS: ipratropium-albuterol 3 mL Neb INHALATION ×5 (04:20→20:55)
[2020-08-27 04:41] LABS: Basophils % 0.2 %; Eosinophils # 0.1 10^3/uL (0.0-0.8); Eosinophils % 0.6 %; Hematocrit 28.2 % (37.0-47.0); Hemoglobin 8.8 g/dL (11.5-15.3); Lymphocytes % 19.6 %; Mean Corpuscular HGB Conc 31.2 g/dL (30.0-36.0); Mean Corpuscular Hemoglobin 29.2 pg (28.0-34.0); Mean Corpuscular Volume 93.7 fL (81-99); Mean Platelet Volume 9.6 fL (7.4-10.4); Monocytes # 1.1 10^3/uL (0.2-0.9); Monocytes % 10.8 %; Neutrophils # 6.96 10^3/uL (1.8-7.7); Neutrophils % 67.8 %; Nucleated Red Blood Cells % 0 %; Platelet Count 835 10^3/cmm (130-400); Red Blood Count 3.01 10^6/uL (4.1-5.3); Red Cell Distribution Width 14.9 % (12.1-15.1); White Blood Count 10.3 10^3/uL (4.0-10.0)
[2020-08-27 05:07] LABS: Alanine Aminotransferase 26 U/L (0-33); Albumin Level 2.4 g/dL (3.5-5.2); Alkaline Phosphatase 81 IU/L (35-105); Anion Gap 9.6 (5-19); Aspartate Amino Transferase 20 U/L (0-32); Blood Urea Nitrogen 12 mg/dL (8-23); Calcium 7.7 mg/dL (8.5-10.5); Carbon Dioxide 27 mmol/L (22-29); Chloride 103 mmol/L (98-107); Globulin 2.8 g/dL (1.3-4.6); Glomerular Filtration Rate 221.9 mL/min (90-130); Glucose 89 mg/dL (65-115); Magnesium 1.9 mg/dL (1.7-2.3); Osmolality Calculated 283 mOsm/kg (285-295); Sodium 137 mmol/L (136-145); Total Bilirubin 0.3 mg/dL (0.15-1.2); Total Protein 5.2 g/dL (6.6-8.7)
[2020-08-27 05:22] LABS: Potassium 2.6 mmol/L (3.5-5.1)
[2020-08-27] MEDS: lidocaine 1% 5 ML in potassium chloride premix 100 ML 25 ML IV ×2 (05:48→10:13)
[2020-08-27] MEDS: magnesium oxide 400 mg tablet PO (06:21)
[2020-08-27] MEDS: famotidine 20 mg/2 mL INJ IVP (09:12)
[2020-08-27] MEDS: apixaban 5 mg Tablet 2.5 MG PO ×2 (09:12→17:26)
[2020-08-27] MEDS: metoprolol tartrate 25 mg Tablet PO ×2 (09:12→17:26)
[2020-08-27] MEDS: budesonide 0.5 mg/2 mL Neb INHALATION ×2 (09:50→20:55)
--- NOTE | 2020-08-27 09:52 | PC.NURSE ---
PATIENT VANCOMYCIN DOSE WILL BE LATE DUE TO TROUGH BEING RUN LATE IN THE LAB.
[2020-08-27 10:03] LABS: Vancomycin Trough 22.5 ug/mL (10-15)
--- NOTE | 2020-08-27 11:31 | P.PN_ITS ---
Subjective Subjective: Interval history: Chart reviewed, remains on 5 L nasal cannula, had 1800 mL urine output overnight, afebrile and normotensive. Decreasing leukocytosis, stable hemoglobin. Resting quietly in bed, no complaints. Will discontinue Bell catheter. Medications: Reviewed: Yes Medication Review Details: Active Medications Generic Name Dose Route Start Last Admin Trade Name Freq PRN Reason Stop Dose Admin Acetaminophen 325 - 650 mg 08/23/20 05:31 08/25/20 11:59 Acetaminophen 32 5 Mg Tablet PO 650 mg Q4H PRN Administration MILD PAIN OR INCR EASE TEMP Albuterol/Ipratrop ium 3 ml 08/18/20 02:48 Ipratropium-Albu terol 3 Ml Neb INHALATION Q6H PRN SHORTNESS OF YESENIA TH Albuterol/Ipratrop ium 3 ml 08/18/20 12:00 08/27/20 09:50 Ipratropium-Albu terol 3 Ml Neb INHALATION 3 ml Q4H.RESPIRATORY S CH Administration Apixaban 2.5 mg 08/18/20 18:00 08/27/20 09:12 Apixaban 5 Mg Ta blet PO 2.5 mg BID KRZYSZTOF Administration Budesonide 0.5 mg 08/18/20 20:00 08/27/20 09:50 Budesonide 0.5 M g/2 Ml Neb INHALATION 0.5 mg BID.RESPIRATORY S CH Administration Famotidine 20 mg 08/19/20 09:00 08/27/20 09:12 Famotidine 20 Mg /2 Ml Inj IVP 20 mg DAILY KRZYSZTOF Administration Imipenem/Cilastati n Sodium 500 100 mls @ 200 mls /hr 08/23/20 18:00 08/27/20 07:15 mg/ Sodium Chlor joey IV 0 mls/hr Q6H KRZYSZTOF Infusion Protocol Vancomycin/PEG/NAD A/Lysine/Water 1,250 mg in 250 m ls @ 250 mls/hr 08/26/20 01:00 08/27/20 03:41 Vancocin IV Infused Q8H KRZYSZTOF Infusion Lidocaine HCl 5 ml / Potassium 105 mls @ 25 mls/ hr 08/27/20 05:30 08/27/20 10:13 Chloride IV 08/27/20 13:29 25 mls/hr Q4H KRZYSZTOF Administration Lanolin 1 applic 08/25/20 03:28 08/25/20 03:37 Lanolin Oint 7 G m TOPICAL 1 tub PRN PRN Administration DRYNESS Lorazepam 0.5 mg 08/26/20 01:18 08/26/20 01:38 Lorazepam 0.5 Mg Tablet PO 0.5 mg BID PRN Administration ANXIETY Methylprednisolone Sodium Succinate 60 mg 08/26/20 12:30 08/26/20 12:56 Methylprednisolo ne Sod Succ 125 Mg /2 Ml Inj IVP 60 mg Q24H KRZYSZTOF Administration Metoprolol Tartrat e 25 mg 08/25/20 09:00 08/27/20 09:12 Metoprolol Tartr ate 25 Mg Tablet PO 25 mg BID KRZYSZTOF Administration Senna/Docusate Sod ium 1 tab 08/18/20 09:00 08/27/20 09:12 Sennosides-Docus ate Tablet PO Not Given DAILY KRZYSZTOF codeine Allergy (Verified 08/17/20 14:18) ALGY-Anaphylaxis Penicillins Adverse Reaction (Mild, Verified 08/17/20 14:18) Unknown Vitals/I&O/Wt Last Vital Signs Temp 98.1 F 08/27/20 08:29 Pulse 83 08/27/20 09:54 Resp 20 H 08/27/20 09:52 BP 117/59 08/27/20 08:29 Pulse Ox 98 08/27/20 09:52 08/26/20 08/27/20 08/27/20 22:59 06:59 14:59 Intake Total 770 / 1770 733.333 / 2503.333 318.333 / 318.333 Output Total 1250 / 1250 1800 / 3050 Balance -480 / 520 -1066.667 / -546.667 318.333 / 318.333 Weight last 48 hrs Weight 75.478 kg Weight 73.936 kg Physical Exam Const: COMMON NORMALS: no acute distress and patient oriented x3 GENERAL APPEARANCE: cooperative and comfortable ORIENTATION/CONSCIOUSNESS: Yes awake OTHER: -resting quietly in bed HENMT: COMMON NORMALS: normocephalic, atraumatic, hearing grossly normal bilaterally and moist oral mucous membranes HEAD & SCALP: normocephalic and atraumatic Eye: COMMON NORMALS: Equal, round and reactive pupils present, EOMs intact bilaterally and conjunctivae normal CONJUNCTIVA: Yes conjunctivae normal PUPIL: Yes Equal, round and reactive pupils present Neck/C-Spine: COMMON NORMALS: full ROM GENERAL: Yes normal visual inspection and Yes trachea midline Resp: COMMON NORMALS: normal respiratory effort, No retractions and No use of accessory muscles EFFORT & INSPECTION: Yes able to speak in complete sentences, Yes symmetric chest movement and No tachypneic AUSCULTATION: diminished lung sounds OTHER: -on 4-5 L NC Cardio: COMMON NORMALS: regular rate, regular rhythm, S1 normal heart sound present, S2 normal heart sound present and No murmurs present (Cardio) RATE: regular rate RHYTHM: regular rhythm HEART SOUNDS: S1 normal heart sound present and S2 normal heart sound present GI: COMMON NORMALS: Normal to inspection, nondistended, normoactive bowel sounds present, Soft to palpation and non-tender PALPATION: Yes Soft to palpation : BLADDER/KIDNEY EXAM: Yes catheter in place Catheter type (Female): urethral Extremity: COMMON NORMALS: normal to inspection, full ROM and no clubbing, cyanosis or edema; negative for no pedal edema Neuro: COMMON NORMALS: patient oriented x3, moves all extremities, no focal motor deficits, no sensory deficits noted and gait normal Psych: COMMON NORMALS: mental status grossly normal, Normal thought process present, cooperative, normal affect and speech normal SPEECH: Yes normal speech THOUGHT PROCESS: Normal thought process present Skin: COMMON NORMALS: no rashes or lesions noted, no jaundice, no petechiae and no mottling GENERAL SKIN EXAM: no rashes or lesions noted Urinary Catheter Management^: Bell: Cath Placed During This Visit: yes Reason for Continuing Indwelling Catheter: Accurate Measurement of Urinary Outp ut in Critically Ill Patients Urinary Catheter Date of Insertion: 08/17/20 Urinary Catheter Time of Insertion: 16:53 Data : 08/27/20 04:09 08/27/20 04:09 Micro: Microbiology 08/21/20 10:21 Blood Culture - Final Blood NO GROWTH AFTER 5 DAYS 08/21/20 10:27 Blood Culture - Final Blood NO GROWTH AFTER 5 DAYS A&P Assessment and plan (1) Pneumonia: -initially required mechanical ventilation, extubated on 08/24 -decreasing oxygen requirement, currently on 5 L NC, has a baseline oxygen requirement of 3 L NC -off levaquin/zosyn; on vancomycin/primaxin; consider switch to PO abx if improving -blood cx: prelim negative -sputum cx: normal priti -negative COVID-19, Legionella, bacterial antigens -decreasing leukocytosis, afebrile -continue to monitor vital signs -continue to monitor respiratory status -CXRs reviewed; noted bilateral consolidations, some improvement on R -switch to oral steroids -on neb treatments Status: Acute Qualifiers: Laterality: bilateral Lung location: unspecified part of lung Pneumonia type: due to unspecified organism Qualified Code(s): J18.9 - Pneumonia, unspecified organism (2) Sepsis: -now resolved -initially evidenced by leukocytosis, hypoxia, hypotension; off pressor support, WBC trending down, oxygen requirement decreasing Status: Resolved Qualifiers: Acute respiratory failure type: with hypoxia Sepsis acute organ dysfunction status: with acute organ dysfunction Sepsis type: sepsis due to un specified organism Severe sepsis acute organ dysfunction type: acute respi ratory failure Severe sepsis shock status: with septic shock Qualified Code(s): A41.9 - Sepsis, unspecified organism; R65.21 - Severe sepsis with se ptic shock; J96.01 - Acute respiratory failure with hypoxia (3) COPD (chronic obstructive pulmonary disease): -wean oxygen requirement to baseline if tolerated -continue Neb treatments Status: Chronic Qualifiers: COPD type: COPD with acute exacerbation Qualified Code(s): J44.1 - Chronic obstructive pulmonary disease with (acute) exacerbation (4) ARDS (adult respiratory distress syndrome): -secondary to pneumonia, now resolved Status: Resolved Additional A&P Information -Atrial fibrillation, rate controlled, on BB, Eliquis, Echo: EF=55-60%, trace MR, mild TR -Physical deconditioning; needs continued therapy per PT -regular diet as tolerated -DVT ppx not needed as on Eliquis -Dispo: home with -Code status: FULL code -anticipate d/c in 24-48 hrs if decreasing oxygen requirement Attestations Medical Necessity Statement*: Patient requires hospitalization for continued management of pneumonia, needs to have decreased oxygen requirement prior to d/c and remains on IV antibiotics and steroids. Time Spent in Patient Care: 16 - 35 minutes (>than 50% of time spent in counselling and/or direct pt care on unit) . Coding Level of Care Code Acute Supervisor [employer] for [facility] Fwd Exam Comprehensive Diagnoses Pneumonia J18.9 Laterality: bilateral Lung location: unspecified part of lung Pneumonia type: due to unspecified organism Sepsis A41.9; R65.21; J96.01 Acute respiratory failure type: with hypoxia Sepsis acute organ dysfunction status: with acute organ dysfunction Sepsis type: sepsis due to unspecified organism Severe sepsis acute organ dysfunction type: acute respiratory failure Severe sepsis shock status: with septic shock COPD (chronic obstructive pulmonary disease) J44.1 COPD type: COPD with acute exacerbation ARDS (adult respiratory distress syndrome) J80
[2020-08-27] MEDS: vancomycin 1,000 MG in sodium chloride 0.9% 250 ML 250 MG IV ×2 (14:05→21:51)
[2020-08-27] MEDS: famotidine 20 mg Tablet PO (17:25)
--- NOTE | 2020-08-27 17:29 | ECG_ITS ---
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 Measurements Intervals [place] Rate: 98 P: 73 [place]: 124 QRS: 34 QRSD: 90 T: 84 QT: 337 QTc: 430 Interpretive Statements SINUS RHYTHM Compared to ECG 08/17/2020 16:52:28 Sinus tachycardia no longer present Electronically Signed On 08-27-2020 19:01:11 BASKET HAND BRAIDER by Robert Abad M.D. [id number]
--- NOTE | 2020-08-27 18:06 | PC.NURSE ---
PATIENT'S HEART RATE ELEVATED TO 150'S. EKG OBTAINED, AT TIME OF EKG, HR BACK DOWN TO LOW 100'S. DR. ESPINAL OBTAINED. NO NEW ORDERS. WILL CONTINUE TO MONITOR.
[2020-08-28] VITALS (16 sets, daily range): BP systolic 105–125; BP diastolic 57–68; PULSE 83–117; RESP 15–21; TEMP 36.4–36.7; O2SAT 91–97
[2020-08-28] MEDS: ipratropium-albuterol 3 mL Neb INHALATION ×5 (00:21→16:22)
[2020-08-28 04:07] LABS: Basophils % 0.1 %; Eosinophils # 0.1 10^3/uL (0.0-0.8); Eosinophils % 1.2 %; Hematocrit 31.1 % (37.0-47.0); Hemoglobin 9.6 g/dL (11.5-15.3); Lymphocytes # 1.6 10^3/uL (0.8-4.8); Lymphocytes % 17.8 %; Mean Corpuscular HGB Conc 30.9 g/dL (30.0-36.0); Mean Corpuscular Hemoglobin 29.4 pg (28.0-34.0); Mean Corpuscular Volume 95.1 fL (81-99); Mean Platelet Volume 11.5 fL (7.4-10.4); Monocytes # 0.8 10^3/uL (0.2-0.9); Monocytes % 8.3 %; Neutrophils # 6.54 10^3/uL (1.8-7.7); Neutrophils % 71.7 %; Nucleated Red Blood Cells % 0 %; Platelet Count 636 10^3/cmm (130-400); Red Blood Count 3.27 10^6/uL (4.1-5.3); Red Cell Distribution Width 14.8 % (12.1-15.1); White Blood Count 9.1 10^3/uL (4.0-10.0)
[2020-08-28 04:40] LABS: Alanine Aminotransferase 25 U/L (0-33); Albumin Level 2.5 g/dL (3.5-5.2); Alkaline Phosphatase 87 IU/L (35-105); Aspartate Amino Transferase 20 U/L (0-32); Blood Urea Nitrogen 8 mg/dL (8-23); Calcium 8.1 mg/dL (8.5-10.5); Carbon Dioxide 29 mmol/L (22-29); Chloride 100 mmol/L (98-107); Globulin 3.1 g/dL (1.3-4.6); Glomerular Filtration Rate 221.9 mL/min (90-130); Glucose 91 mg/dL (65-115); Magnesium 1.8 mg/dL (1.7-2.3); Osmolality Calculated 282 mOsm/kg (285-295); Sodium 137 mmol/L (136-145); Total Bilirubin 0.4 mg/dL (0.15-1.2); Total Protein 5.6 g/dL (6.6-8.7)
[2020-08-28] MEDS: vancomycin 1,000 MG in sodium chloride 0.9% 250 ML 250 MG IV ×2 (05:21→14:20)
--- NOTE | 2020-08-28 07:42 | P.DS_ITS ---
Discharge Providers Date of Admission: 08/17/20 19:13 Date of Discharge: August 28, 2020 Attending Provider at Admission: Akash Rayo MD Attending Provider at Discharge: Katja Blanco MD Consults: None Primary Care Provider: ARIC Calles Diagnoses at Discharge Discharge Diagnosis (1) Pneumonia: Status: Acute Permanent problem details: -initially required mechanical ventilation, extubated on 08/24 -weaned to baseline oxygen requirement of 3 L NC -off levaquin/zosyn; on vancomycin/primaxin; will d/c on doxycycline -blood cx: prelim negative -sputum cx: normal priti -negative COVID-19, Legionella, bacterial antigens -decreasing leukocytosis, afebrile -continue to monitor vital signs -continue to monitor respiratory status -CXRs reviewed; noted bilateral consolidations, some improvement on R -switched to oral steroids -on neb treatments Qualifiers: Laterality: bilateral Lung location: unspecified part of lung Pneumonia type: due to unspecified organism Qualified Code(s): J18.9 - Pneumonia, unspecified organism (2) Sepsis: Status: Resolved Permanent problem details: -now resolved -initially evidenced by leukocytosis, hypoxia, hypotension; off pressor support, WBC trending down, oxygen requirement at baseline Qualifiers: Acute respiratory failure type: with hypoxia Sepsis acute organ dysfunction status: with acute organ dysfunction Sepsis type: sepsis due to unspecified organism Severe sepsis acute organ dysfunction type: acute respi ratory failure Severe sepsis shock status: with septic shock Qualified Code(s): A41.9 - Sepsis, unspecified organism; R65.21 - Severe sepsis with se ptic shock; J96.01 - Acute respiratory failure with hypoxia (3) COPD (chronic obstructive pulmonary disease): Status: Chronic Permanent problem details: -Oxygen dependent 3 L at home Qualifiers: COPD type: COPD with acute exacerbation Qualified Code(s): J44.1 - Chronic obstructive pulmonary disease with (acute) exacerbation (4) ARDS (adult respiratory distress syndrome): Status: Resolved Permanent problem details: -secondary to pneumonia, now resolved Other Information Additional DC diagnoses/information: -Atrial fibrillation, rate controlled, on BB, Eliquis, Echo: EF=55-60%, trace MR, mild TR -Physical deconditioning; needs continued therapy per PT Reason for Visit Reason for Visit: AMS, SHORT OF BREATH, FEVER Hospital Course Hospital Course Patient was initially admitted to the ICU due to need for mechanical ventilation secondary to pneumonia. He was started on broad-spectrum IV antibiotics, IV steroids and did require some pressor support initially due to hypotension and sepsis. She was tested for COVID-19, found to be negative; noted clinical evidence of ARDS. With time and continued treatment she was then subsequently extubated on 08/24 and transitioned to nasal cannula with gradually decreasing oxygen requirement. She is now back to her baseline oxygen requirement of 3 L nasal cannula. Antibiotic regimen was deescalated with clinical improvement. Blood cultures and sputum cultures have been negative. Once respiratory status had stabilized, she was transferred to the cardiac stepdown unit for continued care. She did have a Bell catheter in place due to vent support; this has since been discontinued and she has been able to void independently without difficulty. Follow-up imaging shows improvement and overall she is gradually progressing to her baseline. Vital signs have been stable, she has consistently been afebrile. She has been evaluated by physical therapy with recommendation made for continued therapy at home so home health services have been requested. She will be discharged home today with continued antibiotic and oral steroid therapy. She will need appropriate follow-up with her primary care provider. She is to continue to use supplemental oxygen at 3 L nasal cannula. She is to seek medical attention immediately should her symptoms recur. As noted above sepsis has now resolved and is no further concern for ARDS. Physical Exam Const: COMMON NORMALS: no acute distress and patient oriented x3 GENERAL APPEARANCE: cooperative and comfortable ORIENTATION/CONSCIOUSNESS: Yes awake OTHER: -resting quietly in bed HENMT: COMMON NORMALS: normocephalic, atraumatic, hearing grossly normal bilaterally and moist oral mucous membranes HEAD & SCALP: normocephalic and atraumatic Eye: COMMON NORMALS: Equal, round and reactive pupils present, EOMs intact bilaterally and conjunctivae normal CONJUNCTIVA: Yes conjunctivae normal PUPIL: Yes Equal, round and reactive pupils present Neck/C-Spine: COMMON NORMALS: full ROM GENERAL: Yes normal visual inspection and Yes trachea midline Resp: COMMON NORMALS: normal respiratory effort, No retractions and No use of accessory muscles EFFORT & INSPECTION: Yes able to speak in complete sentences, Yes symmetric chest movement and No tachypneic AUSCULTATION: diminished lung sounds OTHER: -on 3 L NC Cardio: COMMON NORMALS: regular rate, regular rhythm, S1 normal heart sound present, S2 normal heart sound present and No murmurs present (Cardio) RATE: regular rate RHYTHM: regular rhythm HEART SOUNDS: S1 normal heart sound present and S2 normal heart sound present GI: COMMON NORMALS: Normal to inspection, nondistended, normoactive bowel sounds present, Soft to palpation and non-tender PALPATION: Yes Soft to palpation : BLADDER/KIDNEY EXAM: Yes catheter in place Catheter type (Female): urethral Extremity: COMMON NORMALS: normal to inspection, full ROM and no clubbing, cyanosis or edema; negative for no pedal edema Neuro: COMMON NORMALS: patient oriented x3, moves all extremities, no focal motor deficits, no sensory deficits noted and gait normal Psych: COMMON NORMALS: mental status grossly normal, Normal thought process present, cooperative, normal affect and speech normal SPEECH: Yes normal speech THOUGHT PROCESS: Normal thought process present Skin: COMMON NORMALS: no rashes or lesions noted, no jaundice, no petechiae and no mottling GENERAL SKIN EXAM: no rashes or lesions noted Urinary Catheter Management^: Bell: Cath Placed During This Visit: yes, but has since been removed by the nurse Reason for Continuing Indwelling Catheter: Accurate Measurement of Urinary Output in Critically Ill Patients Urinary Catheter Date of Insertion: 08/17/20 Urinary Catheter Time of Insertion: 16:53 Date Urinary Catheter Removed: 08/27/20 Time Urinary Catheter Discontinued: 14:00 Discharge Data Data Completed and Pending: Completed Studies During Hospitalization Category Date Time Status CT cervical spin wo con* [id number] Urge nt Cat Scan 08/17/20 14:[address] chest w con* 7 1260 Urgent Cat Scan 08/17/20 15:[address] head wo con* 7 0450 Urgent Cat Scan 08/17/20 14:24 Completed XR chest 1V agustín ble [id number] Routine Exams 08/24/20 07:00 Completed XR chest 1V agustín ble [id number] Routine Exams 08/18/20 23:58 Completed XR chest 1V agustín ble 11498 Routine Exams 08/19/20 Completed XR chest 1V agustín ble [id number] Routine Exams 08/21/20 07:42 Completed XR chest 1V agustín ble [id number] Routine Exams 08/23/20 05:04 Completed XR chest 1V agustín ble [id number] Stat Exams 08/17/20 14:04 Completed XR chest 1V agustín ble 52675 Stat Exams 08/17/20 20:58 Completed XR chest 1V agustín ble 12971 Stat Exams 08/18/20 14:11 Completed CV echo complete* [id number] Routine Ultrasound 08/22/20 07:44 Completed Pending at discharge Category Date Time Status Vancomycin Trough Timed Lab 08/28/20 13:00 Ordered Labs from last 24 hours 08/28/20 08/28/20 08/27/20 02:51 02:51 08:08 WBC 9.1 RBC 3.27 L Hgb 9.6 L Hct 31.1 L MCV 95.1 MCH 29.4 MCHC 30.9 RDW 14.8 Plt Count 636 H MPV 11.5 H Neut % (Auto) 71.7 Lymph % (Auto) 17.8 [place] % (Auto) 8.3 Eos % (Auto) 1.2 Baso % (Auto) 0.1 Neut # (Auto) 6.54 Lymph # (Auto) 1.6 [place] # (Auto) 0.8 Eos # (Auto) 0.1 Baso # (Auto) 0.0 Nucleated RBC % (a uto) 0 Nucleated RBCs # 0.0 Sodium 137 Potassium 3.0 L Chloride 100 Carbon Dioxide 29 Anion Gap 11.0 BUN 8 Creatinine 0.3 L GFR Calculation 221.9 H Glucose 91 Calculated Osmolal ity 282 L Calcium 8.1 L Magnesium 1.8 Total Bilirubin 0.4 AST 20 ALT 25 Alkaline Phosphata se 87 Total Protein 5.6 L Albumin 2.5 L Globulin 3.1 Vancomycin Trough 22.5 H Vitals: Last Vital Signs Temp 98 F 08/28/20 04:00 Pulse 88 08/28/20 05:58 Resp 20 H 08/28/20 04:35 BP 105/57 08/28/20 04:00 Pulse Ox 92 08/28/20 04:35 Discharge Plan Discharge Patient Disposition: Home Health Service Condition: Stable Prescriptions: New prednisone 20 mg Tablet 40 mg PO DAILY 5 Days Qty: 10 RF: 0 sennosides-docusate sodium 8.6-50 mg Tablet 1 tab PO DAILY Qty: 30 RF: 0 Eliquis 5 mg Tablet 2.5 mg PO BID Qty: 60 RF: 0 doxycycline monohydrate 100 mg capsule 100 mg PO BID 5 Days Qty: 10 RF: 0 ipratropium-albuterol 20-100 mcg/actuation mist 1 puff inhalation Q6H Qty: 4 RF: 0 Continued metoprolol tartrate 25 mg tablet 25 mg PO BID Qty: 60 RF: 0 trazodone 100 mg Tablet 100 mg PO BEDTIME RF: 0 Discharge Orders: Discharge Order (Routine); Ordered 08/28/20 Ordered By: Katja Blanco Referrals: Mary Ledbetter, DISTRIBUTION MANAGER [Primary Care Provider] - 4-7 days Discharge Diet: Advance as tolerated and Regular Discharge Activity: Increase activity as tolerated and Oxygen as instructed Activity Restrictions/Additional Instructions: -Please continue to use supplemental oxygen, 3 L NC Discharge Attestations Time Spent in Discharge Care*: greater than 30 min Specific Discharge Activities: educating patient, discussing with special education case manager/social workers/dc planners, documenting/other paperwork and evaluating patient/reviewing data Status at Discharge: Cognitive status at discharge: cognitively intact , Behavioral status at discharge: cooperative , Overall status at discharge: patient is progressing back to baseline Quality Metrics Clinical Quality Measures During this hospital stay, did patient experience: None Coding Level of Care Code 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 [facility] Fwd Exam Comprehensive Diagnoses Pneumonia J18.9 Laterality: bilateral Lung location: unspecified part of lung Pneumonia type: due to unspecified organism Sepsis A41.9; R65.21; J96.01 Acute respiratory failure type: with hypoxia Sepsis acute organ dysfunction status: with acute organ dysfunction Sepsis type: sepsis due to unspecified organism Severe sepsis acute organ dysfunction type: acute respiratory failure Severe sepsis shock status: with septic shock COPD (chronic obstructive pulmonary disease) J44.1 COPD type: COPD with acute exacerbation ARDS (adult respiratory distress syndrome) J80
[2020-08-28] MEDS: budesonide 0.5 mg/2 mL Neb INHALATION (07:44)
[2020-08-28] MEDS: apixaban 5 mg Tablet 2.5 MG PO ×2 (08:22→17:11)
[2020-08-28] MEDS: predniSONE 20 mg Tablet 40 MG PO (08:22)
[2020-08-28] MEDS: metoprolol tartrate 25 mg Tablet PO ×2 (08:23→17:10)
[2020-08-28] MEDS: famotidine 20 mg Tablet PO ×2 (08:23→17:10)
--- NOTE | 2020-08-28 10:18 | DCPLANNER ---
IMM completed on 08/28/20 @ 3253. Copy of rights given to pt.
== END 2020-08-28 18:15 | disposition home health service (06) | DRG 870 ==
LOC: ER 19:21 → ICU 08-18 00:01 → CSU 08-26 20:12
PROVIDERS: Family Medicine; Internal Medicine; Admitting Provider Internal Medicine; Emergency Provider Emergency Medicine; PCP Nurse Practitioner; Visit Provider Family Medicine
DX: A41.9 Sepsis, unspecified organism (principal); R65.21 Severe sepsis with septic shock; J18.9 Pneumonia, unspecified organism; J96.02 Acute respiratory failure with hypercapnia; J96.01 Acute respiratory failure with hypoxia; J44.0 Chronic obstructive pulmonary disease with (acute) lower respiratory infection; J44.1 Chronic obstructive pulmonary disease with (acute) exacerbation; E87.2 Acidosis; N39.0 Urinary tract infection, site not specified; E87.1 Hypo-osmolality and hyponatremia; I48.0 Paroxysmal atrial fibrillation; Z87.01 Personal history of pneumonia (recurrent); F17.210 Nicotine dependence, cigarettes, uncomplicated; Z99.81 Dependence on supplemental oxygen; W19.XXXA Unspecified fall, initial encounter; M54.2 Cervicalgia; E87.6 Hypokalemia; D47.3 Essential (hemorrhagic) thrombocythemia; B96.20 Unspecified Escherichia coli [E. coli] as the cause of diseases classified elsewhere; D64.9 Anemia, unspecified; I95.9 Hypotension, unspecified
CPT/HCPCS: 12345; 31500; 36415; 36416; 36592; 36600; 51702; 70450; 71045; 71260; 72125; 80048; 80051; 80053; 80202; 81001; 82330; 82803; 82805; 82962; 83605; 83735; 83880; 84145; 85007; 85025; 85384; 85610; 85730; 86140; 86403; 87040; 87070; 87077; 87086; 87186; 87205; 87426; 87449; 87635; 93005; 93306; 94002; 94003; 94640; 94660; 94799; 97110; 97116; 97163; 99283; J0330; J0456; J0696; J0743; J1100; J1170; J1650; J1940; J1956; J2060; J2250; J2270; J2543; J2704; J2765; J2930; J3010; J3370; J3480; J3490; J7030; J7050; J7512; J7608; J7611; J7626; P9047; Q9967

== ENCOUNTER 2020-10-03 09:43 | Outpatient (CLI) | payer OTHER, SELFPAY ==
--- NOTE | 2020-10-03 09:51 | XR_ITS ---
WS: [id number] DEXA (DUAL ENERGY X-RAY ABSORPTIOMETRY) Bone mineral density was performed using a [employer] machine. HISTORY: AGE RELATED OSTEOPOROSIS COMPARISON: None available. Lumbar spine BMD (L1-L4): 0.965 g/cm2 T score: -1.8 Z score: -0.3 Total hip BMD: Left: 0.714 g/cm2. T score: -2.3 Z score: -1.1 Right: 0.708 g/cm2. T score: -2.4 Z score: -1.2 10 year probability of a major osteoporotic fracture is 14%. XR/XR DEXA axial skeleton* 84722 IMPRESSION: OSTEOPENIA based upon the WHO classification for females.
== END 2020-10-03 09:44 | disposition home or self-care (01) ==
PROVIDERS: PCP Nurse Practitioner; Visit Provider Nurse Practitioner
DX: M81.0 Age-related osteoporosis without current pathological fracture (principal); M85.88 Other specified disorders of bone density and structure, other site
CPT/HCPCS: 77080

== ENCOUNTER 2021-01-01 11:30 | Outpatient (CLI) | payer OTHER, SELFPAY | END 2021-01-01 11:31 | disposition home or self-care (01) | LOC: SLEEP 01-02 10:54 | PROVIDERS: PCP Nurse Practitioner; Visit Provider Nurse Practitioner | DX: R53.83 Other fatigue (principal); R06.83 Snoring; R41.3 Other amnesia | CPT/HCPCS: G0399 ==

== ENCOUNTER → 2021-08-26 13:33 | Outpatient (BNVA) | payer OTHER, SELFPAY | PROVIDERS: PCP Nurse Practitioner; Visit Provider Surgery | DX: Z12.11 Encounter for screening for malignant neoplasm of colon (principal) | CPT/HCPCS: 87635 ==

== ENCOUNTER 2021-08-29 06:47 | Day surgery (SDC) | payer OTHER, SELFPAY ==
[2021-08-26 11:00] VITALS: BMI 29.9
--- NOTE | 2021-08-29 07:07 | ANES.PREANE2 ---
Pre-Anesthetic Assessment Pre-Anesthetic Assessment: Height/Weight: Height 1.65 m Weight 81.647 kg Preop Diagnosis: Screening colonoscopy Proposed Procedure: Operation Date: 08/29/21 08:15 Proposed Procedures p Colonoscopy 20881 Z12.11(Not Applicable) - Eder Bailon MD Was Beta Reece taken within 24 hours: Yes Was Clonidine taken within 24 hours: N/A Social: Social History: No alcohol and No tobacco (H/O smoking) Exam: Pre-Anes Outpt Exam: alert, oriented x 3 and regular rate & rhythm Airway: Submandibular: WNL Cervical ROM: WNL MP: 2 Dentition: False Pulmonary: Pulmonary: COPD CV/HEM: CV/HEM: Afib and HTN Comments: anticoagulated Anesthetic Plan: ASA status: 3 Anesthesia: MAC Risk of > 500 ml blood loss (7ml/kg in children): No PFSH Anesthesia PFSH: Medical History COPD (chronic obstructive pulmonary disease) -Oxygen dependent 3 L at home Nicotine abuse Surgical History Hx of hysterectomy Family History Other Family history non-contributory Social History Smoking and tobacco status: former smoker (october of 2019 stopped) Alcohol intake: never Household members: spouse Housing: House Data Anesthesia Cardiac Studies: Echocardiogram Ultrasound 08/22/20
[2021-08-29 07:31] VITALS: BP 129/88; PULSE 107; RESP 18; TEMP 36.4; O2SAT 93
[2021-08-29] MEDS: sodium chloride 0.9% 1,000 ML 30 ML IV (07:42)
--- NOTE | 2021-08-29 08:30 | W.PM.OPSFHP ---
Same Day Surgery H&P Indication for Procedure/HPI DATE OF PROCEDURE: August 29, 2021 CHIEF COMPLAINT/INDICATIONFOR SURGICAL PROCEDURE: Screening colonoscopy PREOP DIAGNOSIS: Screening colonoscopy PLANNED PROCEDRUE: Operation Date: 08/29/21 08:15 Proposed Procedures p Colonoscopy 85797 Z12.11(Not Applicable) - Eder Bailon MD 06/20/2021 This is a pleasant 66 years old female patient referred to my practice to discuss screening colonoscopy. Patient had a previous one while ago she does not remember exactly when. Reports no history of colon polyps or bleeding per rectum or colon cancer, patient is currently on blood thinners in the form of Eliquis 2.5 mg p.o. twice daily. Interim history 08/29/2021 Patient comes today for screening colonoscopy ROS All systems have been reviewed negative except as per the above or per problem list Medications/Allergies* Home Medications Medication Instructions Recorded Confirmed Type trazodone 100 mg PO BEDTIME 11/10/19 08/29/21 History Allergies/Adverse Reactions Allergy/AdvReac Type Severity Reaction Status Date / Time codeine Allergy ALGY-Anaphy Verified 08/29/21 08:31 laxis Penicillins AdvReac Mild Unknown Verified 08/29/21 08:31 Current Medications: Generic Name Dose Route Start Last Admin Trade Name Freq PRN Reason Stop Dose Admin Sodium Chloride 1,000 mls @ 30 mls/hr 08/29/21 07:00 08/29/21 07:42 Sodium Chloride 0.9% IV 30 mls/hr .Q24H [id number] Administration Pertinent History/Comorbid Conditions* Medical History (Updated 06/22/21 @ 17:24 by Eder Bailon MD) COPD (chronic obstructive pulmonary disease) -Oxygen dependent 3 L at home Nicotine abuse Surgical History (Updated 11/09/19 @ 02:36 by Nicole Hubbard MD) Hx of hysterectomy Family History (Updated 08/17/20 @ 21:46 by Akash Rayo MD) Family history non-contributory Social History Smoking and tobacco status: former smoker (october of 2019 stopped) Alcohol intake: never Household members: spouse Housing: House Pertinent Exam Findings alert, oriented x 3 and procedure specific exam findings (Abdominal examination nontender nondistended soft) Recommendations Surgery/Procedure today (Colonoscopy) Other Plans: Plan of care; After thorough history and physical examination and reviewing the chart, plan to perform screening colonoscopy. I discussed with the patient in details the risks,benefits,alternatives and indications.The risk of aspiration, bleeding, soft tissue injury, perforation of the colon and other potential concomitant complications were explained to the patient in details,also the potential need for Laproscoy/Laparotomy to repair any related complications including but not limited to colectomy and or Closotomy.The patient understood this well and did agree to proceed. Rationale was carefully and clearly discussed with the patient.Appropriate informed consent have been reviewed and signed All questions have been answered and all concerns have been addressed to patient's satisfaction. Verbal and written Instructions were given to the patient for colonoscopy prep Coding Level of Care Code Acute Grant Writer for Dangelo Weeks
[2021-08-29 09:05] VITALS: BP 116/78; PULSE 82; RESP 16; TEMP 36.2; O2SAT 97
[2021-08-29 09:23] VITALS: BP 125/82; PULSE 83; RESP 18; O2SAT 94
--- NOTE | 2021-08-29 09:27 | ANE.PACU2 ---
Inpatient post-anesthesia follow up: Airway intact: Yes Vital signs: Temperature 97.2 F Pulse Rate 83 Respiratory Rate 18 Blood Pressure 125/82 Pulse Oximetry 94 Oxygen Delivery Me thod Room Air Oxygen Flow Rate 4 Fraction of Inspir ed Oxygen Hydration adequate: Yes Nausea and vomiting: No Pain level: 1 Mental status: Baseline
== END 2021-08-29 09:29 | disposition home or self-care (01) ==
PROVIDERS: PCP Nurse Practitioner; Visit Provider Surgery
PROC: 0DJD8ZZ Inspection of Lower Intestinal Tract, Via Natural or Artificial Opening Endoscopic (ICD-10-PCS; CPT 45378; principal; 2021-08-29 08:15)
DX: Z12.11 Encounter for screening for malignant neoplasm of colon (principal); J44.9 Chronic obstructive pulmonary disease, unspecified; F17.210 Nicotine dependence, cigarettes, uncomplicated; K57.30 Diverticulosis of large intestine without perforation or abscess without bleeding; D12.5 Benign neoplasm of sigmoid colon; I48.91 Unspecified atrial fibrillation; I10 Essential (primary) hypertension; Z99.81 Dependence on supplemental oxygen; Z87.891 Personal history of nicotine dependence
CPT/HCPCS: 45385; 88305; 96360; 96361; J2704; J7030

== ENCOUNTER 2022-05-12 08:36 | Emergency (ER) | payer OTHER, SELFPAY ==
--- NOTE | 2022-05-12 08:39 | ECG_ITS ---
[facility] Test Date: 2022-05-12 Pat Name: Lisa Peterson Department: Room: Gender: Female Scada Technician: : 1955 Requested By: Corina Valiente Order Number: [id number] Astrid MD: Robert Abad M.D. Measurements Intervals [place] Rate: 88 P: 73 [place]: 149 QRS: 62 QRSD: 90 T: 59 QT: 356 QTc: 431 Interpretive Statements SINUS RHYTHM INTERPRETATION BASED ON A DEFAULT AGE OF 40 YEARS Compared to ECG 08/27/2020 17:37:49 No significant changes Electronically Signed On 05-12-2022 18:34:46 CDT by Robert Abad M.D. [id number]
--- NOTE | 2022-05-12 08:39 | XRR_ITS ---
PROCEDURE INFORMATION: Exam: XR Chest Exam date and time: 05/12/2022 8:58 AM Age: 66 years old Clinical indication: Pain; Shortness of breath; Angina pectoris; Additional info: Cp TECHNIQUE: Imaging protocol: Radiologic exam of the chest. Views: 1 view. COMPARISON: CR XR chest 1V portable [id number] 08/24/2020 5:26 AM FINDINGS: Lungs: No focal airspace disease. Pleural spaces: Unremarkable. No pleural effusion. No pneumothorax. Heart/Mediastinum: Cardiomediastinal silhouette is within normal limits. Bones/joints: Unremarkable. XR/XR chest 1V portable [id number] IMPRESSION: No acute cardiopulmonary abnormality.
[2022-05-12 08:42] VITALS: BP 169/83; PULSE 96; RESP 19; TEMP 36.6; O2SAT 92; BMI 30.6
[2022-05-12 09:01] LABS: Basophils % 0.6 %; Eosinophils # 0.1 10^3/uL (0.0-0.8); Eosinophils % 1.7 %; Hematocrit 43.4 % (37.0-47.0); Hemoglobin 13.8 g/dL (11.5-15.3); Lymphocytes # 2.7 10^3/uL (0.8-4.8); Mean Corpuscular HGB Conc 31.8 g/dL (30.0-36.0); Mean Corpuscular Hemoglobin 29.2 pg (28.0-34.0); Mean Corpuscular Volume 91.9 fl (81-99); Monocytes # 0.5 10^3/uL (0.2-0.9); Monocytes % 7.2 %; Neutrophils # 3.58 10^3/uL (1.8-7.7); Neutrophils % 50.8 %; Nucleated Red Blood Cells % 0 %; Platelet Count 547 10^3/cmm (130-400); Red Blood Count 4.72 10^6/uL (4.1-5.3); Red Cell Distribution Width 13.3 % (12.1-15.1); White Blood Count 7.1 10^3/uL (4.0-10.0)
[2022-05-12 09:07] VITALS: PULSE 81; RESP 16; O2SAT 92
[2022-05-12] MEDS: ipratropium-albuterol 3 mL Neb INHALATION (09:07)
[2022-05-12 09:14] VITALS: PULSE 82; RESP 16; O2SAT 92
[2022-05-12 09:16] VITALS: BP 133/113; PULSE 82; O2SAT 92
[2022-05-12 09:22] LABS: Troponin(5th) Baseline 9 ng/L (0-10)
--- NOTE | 2022-05-12 09:22 | ED_ITS ---
HPI - SOB/Dyspnea General: Chief Complaint: Shortness of Breath/Dyspnea Stated Complaint: Chest Pain/SOB Time Seen by Provider: 05/12/22 08:39 Source: patient Mode of arrival: ambulatory Limitations: no limitations History of Present Illness: HPI Narrative: 66-year-old female states that she had a cough along with wheezing and some dyspnea over the last 2 weeks. States her cough has been nonproductive but is worsened. States has been having some sharp chest pains now with her cough. She denies any pain currently denies any pain at rest. Denies any fevers. No vomiting or diarrhea. Associated symptoms: Reports chest pain; Deny abdominal pain, fever(s), nausea or vomiting Review of Systems Const: Denies: fever(s), chills, body aches or change in appetite Eyes: Denies: blurry vision or eye discomfort ENMT: Denies: throat pain or dental pain Card: Reports: chest pain Resp: Reports: dyspnea, non-productive cough and wheezing GI: Denies: abdominal pain, nausea, vomiting or diarrhea : Denies: dysuria Musc: Denies: neck pain or back pain Skin/Breast: Denies: rash Neuro: Denies: headache(s) Psych: Denies: depression Philip/Lymph: Denies: easy bruising All/Imm: Denies: urticaria PFSH ED PFSH: Medical History COPD (chronic obstructive pulmonary disease) -Oxygen dependent 3 L at home Nicotine abuse Surgical History Hx of hysterectomy Family History Other Family history non-contributory Social History Alcohol intake: never Household members: spouse Housing: House Physical Exam Const: COMMON NORMALS: no acute distress, patient oriented x3 and healthy appearing HENMT: COMMON NORMALS: normocephalic and atraumatic HEAD & SCALP: normocephalic and atraumatic Eye: COMMON NORMALS: Equal, round and reactive pupils present and EOMs intact bilaterally PUPIL: Yes Equal, round and reactive pupils present Neck/C-Spine: COMMON NORMALS: full ROM and supple Chest: COMMONS NORMALS: normal inspection of the chest and normal palpation of entire chest wall Resp: COMMON NORMALS: normal respiratory effort, No retractions and No use of accessory muscles AUSCULTATION: wheezes Cardio: COMMON NORMALS: regular rate, regular rhythm and No murmurs present (Cardio) RATE: regular rate RHYTHM: regular rhythm GI: COMMON NORMALS: Normal to inspection, nondistended, normoactive bowel sounds present, Soft to palpation, non-tender and no masses PALPATION: Yes Soft to palpation Extremity: COMMON NORMALS: normal to inspection and full ROM Neuro: COMMON NORMALS: patient oriented x3, moves all extremities and no focal motor deficits Psych: COMMON NORMALS: mental status grossly normal, Normal thought process present and cooperative THOUGHT PROCESS: Normal thought process present Skin: COMMON NORMALS: no rashes or lesions noted and no wounds GENERAL SKIN EXAM: no rashes or lesions noted Course Vital Signs: Vital signs: Vital Signs Temperature 97.9 F 05/12/22 08:42 Pulse Rate 82 05/12/22 09:16 Respiratory Rate 16 05/12/22 09:14 Blood Pressure 133/113 05/12/22 09:16 Pulse Oximetry 92 05/12/22 09:16 Oxygen Delivery Me thod 05/12/22 09:16 MDM - SOB/Dyspnea Medical Decision Making Patient presents with cough and congestion with a likely bronchitis she also hypokalemic is likely incidental x-ray shows no pneumonia we will start her on steroids along with albuterol inhaler and Keflex will prescribe potassium replacement she is to follow-up with PCP and return if worsening she understands agrees to plan. Lab Data : 05/12/22 08:48 05/12/22 08:48 Labs/Radiology: Radiology Impressions Chest X-Ray 05/12/22 08:39 IMPRESSION: No acute cardiopulmonary abnormality. Laboratory Results WBC 7.1 10^3/uL (4.0-10.0) 05/12/22 08:48 RBC 4.72 10^6/uL (4.1-5.3) 05/12/22 08:48 Hgb 13.8 g/dL (11.5-15.3) 05/12/22 08:48 Hct 43.4 % (37.0-47.0) 05/12/22 08:48 MCV 91.9 fl (81-99) 05/12/22 08:48 MCH 29.2 pg (28.0-34.0) 05/12/22 08:48 MCHC 31.8 g/dL (30.0-36.0) 05/12/22 08:48 RDW 13.3 % (12.1-15.1) 05/12/22 08:48 Plt Count 547 10^3/cmm (130-400) H 05/12/22 08:48 MPV 10.0 fL (7.4-10.4) 05/12/22 08:48 Neut % (Auto) 50.8 % 05/12/22 08:48 Lymph % (Auto) 38.0 % 05/12/22 08:48 [place] % (Auto) 7.2 % 05/12/22 08:48 Eos % (Auto) 1.7 % 05/12/22 08:48 Baso % (Auto) 0.6 % 05/12/22 08:48 Neut # (Auto) 3.58 10^3/uL (1.8-7.7) 05/12/22 08:48 Lymph # (Auto) 2.7 10^3/uL (0.8-4.8) 05/12/22 08:48 [place] # (Auto) 0.5 10^3/uL (0.2-0.9) 05/12/22 08:48 Eos # (Auto) 0.1 10^3/uL (0.0-0.8) 05/12/22 08:48 Baso # (Auto) 0.0 10^3/uL (0.0-0.1) 05/12/22 08:48 Nucleated RBC % (auto) 0 % 05/12/22 08:48 Nucleated RBCs # 0.0 /100WBC 05/12/22 08:48 Sodium 142 mmol/L (136-145) 05/12/22 08:48 Potassium 2.7 mmol/L (3.5-5.1) L* 05/12/22 08:48 Chloride 101 mmol/L (98-107) 05/12/22 08:48 Carbon Dioxide 32 mmol/L (22-29) H 05/12/22 08:48 Anion Gap 11.7 (5-19) 05/12/22 08:48 BUN 10 mg/dL (8-23) 05/12/22 08:48 Creatinine 0.6 mg/dL (0.5-0.9) 05/12/22 08:48 GFR Calculation 99.4 mL/min (90-130) 05/12/22 08:48 Glucose 142 mg/dL (65-115) H 05/12/22 08:48 Calculated Osmolality 295 mOsm/kg (285-295) 05/12/22 08:48 Calcium 9.0 mg/dL (8.5-10.5) 05/12/22 08:48 Total Bilirubin 0.3 mg/dL (0.15-1.2) 05/12/22 08:48 AST 22 U/L (0-32) 05/12/22 08:48 ALT 25 U/L (0-33) 05/12/22 08:48 Alkaline Phosphatase 88 U/L (35-105) 05/12/22 08:48 Troponin T Baseline 9 ng/L (0-10) 05/12/22 08:48 NT-Pro-B Natriuret Pep 414 pg/mL (0-125) H 05/12/22 08:48 Total Protein 7.3 g/dL (6.6-8.7) 05/12/22 08:48 Albumin 3.4 g/dL (3.5-5.2) L 05/12/22 08:48 Globulin 3.9 g/dL (1.3-4.6) 05/12/22 08:48 Discharge Plan Discharge Patient Disposition: Home Clinical Impression: Bronchitis, Hypokalemia Condition: Stable Prescriptions: New potassium chloride 40 mEq/15 mL liquid 40 meq PO BID 5 Days Qty: 150 0RF cephalexin 500 mg capsule 500 mg PO TID 7 Days Qty: 21 0RF prednisone 50 mg tablet 50 mg PO DAILY Qty: 5 0RF albuterol sulfate 90 mcg/actuation HFA aerosol inhaler 2 inh INHALATION Q6H PRN (Reason: shortness of breath or wheezing) Qty: 8 0RF No Action Eliquis 5 mg Tablet 2.5 mg PO BID Qty: 60 0RF Hold Instructions: Resume on 09/03/21. metoprolol tartrate 25 mg tablet 25 mg PO BID Qty: 60 0RF ipratropium-albuterol 20-100 mcg/actuation mist 1 puff inhalation Q6H Qty: 4 0RF trazodone 100 mg Tablet 100 mg PO BEDTIME Discharge Orders: Discharge ED (Routine); Ordered 05/12/22 Ordered By: Corina Valiente Referrals: Mary Ledbetter FNP [Primary Care Provider] - Discharge Diet: Advance as tolerated Discharge Activity: Resume usual activity Patient Instructions: Bronchitis (Acute) - Adult, Hypokalemia (ED) Coding Level of Care Code ED Commercial Sales Specialist for Samg Fwd Exam Comprehensive
[2022-05-12 09:30] LABS: Alanine Aminotransferase 25 U/L (0-33); Albumin Level 3.4 g/dL (3.5-5.2); Alkaline Phosphatase 88 U/L (35-105); Anion Gap 11.7 (5-19); Aspartate Amino Transferase 22 U/L (0-32); Blood Urea Nitrogen 10 mg/dL (8-23); Carbon Dioxide 32 mmol/L (22-29); Chloride 101 mmol/L (98-107); Globulin 3.9 g/dL (1.3-4.6); Glomerular Filtration Rate 99.4 mL/min (90-130); Glucose 142 mg/dL (65-115); NT Pro B Type Natriuretic Pept 414 pg/mL (0-125); Osmolality Calculated 295 mOsm/kg (285-295); Sodium 142 mmol/L (136-145); Total Bilirubin 0.3 mg/dL (0.15-1.2); Total Protein 7.3 g/dL (6.6-8.7)
[2022-05-12 09:45] LABS: Potassium 2.7 mmol/L (3.5-5.1)
[2022-05-12] MEDS: potassium chloride ER 20 mEq Tablet 60 MEQ PO (09:58)
[2022-05-12 09:59] VITALS: BP 115/72; PULSE 93; RESP 20; O2SAT 92
== END 2022-05-12 10:06 | disposition home or self-care (01) ==
PROVIDERS: Emergency Provider Emergency Medicine; PCP Nurse Practitioner
DX: J40 Bronchitis, not specified as acute or chronic (principal); E87.6 Hypokalemia; Z79.01 Long term (current) use of anticoagulants; J44.9 Chronic obstructive pulmonary disease, unspecified
CPT/HCPCS: 71045; 80053; 83880; 84484; 85025; 93005; 94640; 96374; 99285; J2930

== ENCOUNTER → 2023-03-12 14:46 | Outpatient (BNVA) | payer OTHER, SELFPAY | PROVIDERS: PCP Nurse Practitioner; Visit Provider Internal Medicine Pulmonary Disease | DX: R06.02 Shortness of breath (principal); J30.2 Other seasonal allergic rhinitis | CPT/HCPCS: 82785; 85025; 86003; 99204 ==

== ENCOUNTER 2023-03-20 12:35 | Outpatient (CLI) | payer OTHER, SELFPAY ==
--- NOTE | 2023-03-20 13:00 | USCV_ITS ---
Lisa Peterson Age: 67 Gender: F : 1955 Exam Date: 03/20/2023 13:03 Ordering Phys: Lorenzo Saucedo MD Technologist: CT Exam Location: [facility] – [place] Indication: sob BP: 155 / 67 HR: 70 Rhythm: Sinus Technical Quality: Adequate MEASUREMENTS (Male / Female) Normal Values 2D ECHO LV Chamber Size 3.8 cm RV Chamber Size 3.4 cm LVOT Diameter 2.0 cm LV Ejection Fraction MOD 2C 49.9 % LV Ejection Fraction 2C AL 50.2 % LA Diameter 3.8 cm LA Width 3.3 cm LA Height 4.7 cm RA Width 3.4 cm RA Height 3.7 cm Aorta at Sinotubular Diameter 2.5 cm IVC Diameter 1.9 cm M-MODE Aortic Annulus Diameter 3.0 cm LA Ao Ratio MM 1.4 MV E Point Septal Separation 0.8 cm DOPPLER AV Peak Velocity 157.0 cm/s LVOT Peak Velocity 99.0 cm/s AV Area Cont Eq vti 2.2 cm squared AV Area Cont Eq pk 2.0 cm squared MV Area PHT 2.3 cm squared Mitral E to A Ratio 0.7 MV E' Velocity 34.5 cm/s Mitral E to MV E' Ratio 6.7 Mitral E to LV E' Lateral Ratio 5.8 Mitral E to LV E' Septal Ratio 8.1 TR Peak Velocity 156.0 cm/s TR Peak Gradient 9.7 mmHg TV Peak E Velocity 109.0 cm/s Right Atrial Pressure 3.0 mmHg Pulmonary Artery Systolic Pressu 12.7 mmHg PV Peak Velocity 84.0 cm/s FINDINGS Left Ventricle Left ventricle is normal size. LV systolic function is normal with EF of 55 to 60%. No regional wall abnormalities are seen. Grade 1 diastolic dysfunction. Right Ventricle Normal size and function. Right Atrium Normal in size Left Atrium Normal in size Mitral Valve Structurally normal mitral valve. Trace mitral regurgitation. Aortic Valve Aortic valve is thickened. No significant stenosis or regurgitation. Tricuspid Valve Trace tricuspid regurgitation. Insufficient TR jet to evaluate RVSP. Pulmonic Valve Not well-visualized Pericardium Normal Aorta Normal in size IVC Appears to be normal CONCLUSIONS LV systolic function is normal with EF 55 to 60%. Grade 1 diastolic dysfunction Trace mitral regurgitation Trace tricuspid regurgitation Compared to prior echocardiogram from 07/2020, no significant changes are seen. Robert Abad MD (Electronically Signed) Final Date: 20 March 2023 14:56 S
== END 2023-03-20 12:36 | disposition home or self-care (01) ==
PROVIDERS: PCP Nurse Practitioner; Visit Provider Internal Medicine Pulmonary Disease
DX: R06.02 Shortness of breath (principal); I08.1 Rheumatic disorders of both mitral and tricuspid valves
CPT/HCPCS: 93306

== ENCOUNTER 2023-03-24 06:00 | Outpatient (RCR) | payer OTHER, SELFPAY | END 2023-04-23 23:59 | disposition home or self-care (01) | LOC: PULRHB 06:00 | PROVIDERS: PCP Nurse Practitioner; Visit Provider Nurse Practitioner | DX: J44.9 Chronic obstructive pulmonary disease, unspecified (principal) | CPT/HCPCS: 94625 ==

== ENCOUNTER 2023-04-01 08:19 | Outpatient (CLI) | payer OTHER, SELFPAY ==
[2023-04-01 09:02] VITALS: BP 137/85
[2023-04-01 09:22] VITALS: PULSE 92; RESP 20; O2SAT 96
[2023-04-01] MEDS: albuterol 2.5 mg/3 mL Neb INHALATION (09:22)
[2023-04-01 09:27] VITALS: PULSE 100
== END 2023-04-01 08:20 | disposition home or self-care (01) ==
PROVIDERS: PCP Nurse Practitioner; Visit Provider Internal Medicine Pulmonary Disease
DX: R06.02 Shortness of breath (principal); Z87.891 Personal history of nicotine dependence; R94.2 Abnormal results of pulmonary function studies
CPT/HCPCS: 94060; 94618; 94726; 94729; J7613

== ENCOUNTER 2023-04-06 11:30 | Outpatient (CLI) | payer OTHER, SELFPAY | END 2023-04-06 11:31 | disposition home or self-care (01) | LOC: SLEEP 04-08 08:53 | PROVIDERS: PCP Nurse Practitioner; Visit Provider Internal Medicine Pulmonary Disease | DX: G47.34 Idiopathic sleep related nonobstructive alveolar hypoventilation (principal); J44.9 Chronic obstructive pulmonary disease, unspecified | CPT/HCPCS: 94762 ==

== ENCOUNTER 2023-04-24 06:00 | Outpatient (RCR) | payer OTHER, SELFPAY | END 2023-05-23 23:59 | disposition home or self-care (01) | LOC: PULRHB 06:00 | PROVIDERS: PCP Nurse Practitioner; Visit Provider Nurse Practitioner | DX: J44.9 Chronic obstructive pulmonary disease, unspecified (principal) | CPT/HCPCS: 94625 ==

== ENCOUNTER → 2023-05-14 17:10 | Outpatient (BNVA) | payer OTHER, SELFPAY | PROVIDERS: PCP Nurse Practitioner; Visit Provider Internal Medicine Pulmonary Disease | DX: R91.1 Solitary pulmonary nodule (principal); I48.91 Unspecified atrial fibrillation; Z87.891 Personal history of nicotine dependence; J44.1 Chronic obstructive pulmonary disease with (acute) exacerbation; Z12.2 Encounter for screening for malignant neoplasm of respiratory organs; R22.43 Localized swelling, mass and lump, lower limb, bilateral; G47.34 Idiopathic sleep related nonobstructive alveolar hypoventilation | CPT/HCPCS: 36415; 99214 ==

== ENCOUNTER 2023-05-24 06:00 | Outpatient (RCR) | payer OTHER, SELFPAY | END 2023-06-23 23:59 | disposition home or self-care (01) | LOC: PULRHB 06:00 | PROVIDERS: PCP Nurse Practitioner; Visit Provider Nurse Practitioner | DX: J44.9 Chronic obstructive pulmonary disease, unspecified (principal) | CPT/HCPCS: 94625 ==

== ENCOUNTER 2023-06-09 16:12 | Outpatient (CLI) | payer OTHER, SELFPAY ==
--- NOTE | 2023-06-09 09:30 | PETR_ITS ---
PROCEDURE INFORMATION: Exam: PET/CT Skull Base to Mid-thigh Exam date and time: 06/09/2023 10:18 AM Age: 68 years old Clinical indication: Abnormal findings; Solitary pulmonary nodule; Patient HX: No prior report for CT lung screen 04/14/23 LABS AND CLINICAL REPORTS: Glucose: 115 mg/dl Treatment strategy for malignancy (PET staging): Initial Staging (PI) TECHNIQUE: Imaging protocol: Following at least four-hour fasting and following the injection of radiopharmaceutical, low dose CT images were obtained. Then, PET images were obtained. Attenuation corrected images were constructed using the CT scan. Fused images of PET and CT were reviewed. The standardized uptake values (SUV) reported below are maximum values within a region of interest, expressed in gm/ml. Exam includes orbital meatal line to mid-thigh. Radiopharmaceutical: 13.26 mCi F-18 FDG (Fluorodeoxyglucose), IV. Time of imaging post radiopharmaceutical administration: 1 hour Injection site: site COMPARISON: CT lung screening [id number] 04/14/2023 12:09 PM FINDINGS: Brain: Visualized brain has normal physiologic uptake. Pharynx: No abnormal uptake. Larynx: No abnormal uptake. Lungs, pleura and trachea: 3 mm solid anterior right upper lobe nodule series 3, image 80 is unchanged. 5 mm solid nodule right lower lobe abutting the pleura on series 3 image 104 is unchanged. The previously noted 10 mm nodule in the posteromedial right lower lobe is no longer present and may have been infectious/inflammatory on previous. Emphysema is unchanged. No abnormal uptake on PET. Heart: Normal physiologic uptake. Coronary arteries: Moderate coronary artery atherosclerosis. Mediastinal space: No abnormal uptake. Diaphragm: Small-sized hiatal hernia. Liver: No abnormal uptake. Gallbladder and bile ducts: Gallstones. Pancreas: No abnormal uptake. Spleen: No abnormal uptake. Adrenal glands: No abnormal uptake. Kidneys and ureters: Normal physiologic uptake. Stomach and bowel: Colonic diverticuli without inflammation. Reproductive: Hysterectomy. Vasculature: Moderate atherosclerosis of the abdominal aorta with infrarenal ectasia to 2.8 cm. Lymph nodes: There is low-grade uptake in a nonenlarged right axillary lymph node with SUV maximum of 3.2 favored to be reactive. No suspicious appearing lymphadenopathy. Bones/joints: No abnormal uptake in the visualized axial and appendicular skeleton. Soft tissues: There is uptake in muscle in the posterior right shoulder which may reflect muscular use. [facility] SUB[facility] [id number] IMPRESSION: 1. Posteromedial right lower lobe solid nodule on comparison chest CT no longer present. This may have been infectious/inflammatory on the previous study. No FDG-avid malignancy identified. 2. The other multiple 5 mm or less right-sided pulmonary nodules are unchanged and should be followed per Fleischner society criteria. Stable emphysema. For patients at low risk (minimal or absent history of smoking and of other known risk factors), no routine follow-up is indicated. For patients at high risk (history of smoking or of other known risk factors), consider optional CT Chest at 12 months. (Reference: Fabianahoblas) 3. Low-grade uptake in a nonenlarged right axillary lymph node most likely reactive. Correlate clinically. REFERENCES: Bradley Campbell, et al. Guidelines for Management of Incidental Pulmonary Nodules Detected on CT Images: From the Fleischner Society 2017. Radiology. 2017;284(1):228-243.
== END 2023-06-09 16:13 | disposition home or self-care (01) ==
LOC: RAD 16:12
PROVIDERS: PCP Nurse Practitioner; Visit Provider Internal Medicine Pulmonary Disease
DX: R91.8 Other nonspecific abnormal finding of lung field (principal); J43.9 Emphysema, unspecified
CPT/HCPCS: 78815; A9552

== ENCOUNTER 2023-06-24 06:00 | Outpatient (RCR) | payer OTHER, SELFPAY | END 2023-07-23 23:59 | disposition home or self-care (01) | LOC: PULRHB 06:00 | PROVIDERS: PCP Nurse Practitioner; Visit Provider Nurse Practitioner | DX: J44.9 Chronic obstructive pulmonary disease, unspecified (principal) | CPT/HCPCS: 94625 ==

== ENCOUNTER 2023-08-05 11:40 | Emergency (ER) | payer OTHER, SELFPAY ==
[2023-08-05 11:44] VITALS: BP 144/76; PULSE 132; RESP 26; TEMP 36.4; O2SAT 93; BMI 29.9
--- NOTE | 2023-08-05 11:59 | XR_ITS ---
WS: [id number] Exam: XR chest 1V portable [id number] Date/Time of Exam: 08/05/2023 11:59 AM Reason For Exam: dyspnea/cough Comparison 05/12/2022. The lungs are hyperinflated and clear. Normal cardiomediastinal silhouette. Unremarkable bony element s. Monitoring leads superimpose the chest. IMPRESSION: 1. Pulmonary hyperinflation. No acute process.
--- NOTE | 2023-08-05 12:00 | ECG_ITS ---
[facility] Test Date: 2023-08-05 Pat Name: Lisa Peterson Department: Room: Gender: Female Vice President Quality: : 1955 Requested By: Shakir Yoder Order Number: [id number] Astrid MD: Vanessa Warren M.D. Measurements Intervals [place] Rate: 122 P: 70 CT: 161 QRS: 23 QRSD: 76 T: 67 QT: 317 QTc: 453 Interpretive Statements SINUS TACHYCARDIA WITH OCCASIONAL SUPRAVENTRICULAR PREMATURE COMPLEXES LOW QRS VOLTAGE IN PRECORDIAL LEADS [QRS DEFLECTION < 1.0 mV IN CHEST LEADS] ABNORMAL RHYTHM ECG Compared to ECG 05/12/2022 08:49:47 Low QRS voltage now present Sinus rhythm no longer present Electronically Signed On 08-05-2023 21:47:29 AIR AND WATER TESTER by Vanessa Warren M.D. [id number]
--- NOTE | 2023-08-05 12:07 | W.ED.ARRPALP ---
HPI - Arrhythmia/Palpitations General: Chief Complaint: Arrhythmia/Palpitations Stated Complaint: high heartrate,va sent Time Seen by Provider: 08/05/23 11:59 Source: patient Mode of arrival: ambulatory History of Present Illness: 68-year-old female presents emergency room with complaints of rapid heart rate. She got a pulmonary rehab today was there for about 3 minutes that reported heart rate up in the 160s with accompanying shortness of breath. She is on Eliquis and metoprolol according to her old records that she does have a history of atrial fibrillation. She tells me she did not take her medications this morning she usually takes them with food and had been fasting for lab work so did not take them MD complaint: rapid heart beat and heart racing Onset (ago): minute(s) Duration: constant Severity: moderate Context: occurred during exertion Associated symptoms: Deny anxiety, cough, diaphoresis, muscle cramps, nausea, paresthesias, pre-syncope, sense of impending doom, short of breath, syncope or vomiting Review of Systems Const: Denies: fever(s), chills or diaphoresis Card: Denies: chest pain, syncope or pre-syncope Resp: Denies: dyspnea GI: Denies: abdominal pain, nausea or vomiting : Denies: dysuria, urinary frequency or urinary urgency Musc: Denies: neck pain, back pain or muscle cramps Skin/Breast: Denies: rash Psych: Denies: anxiety [facility] ED PFSH: Medical History (Updated 08/05/23 @ 14:00 by Shakir Siu DO) A-fib Nicotine abuse COPD (chronic obstructive pulmonary disease) -Oxygen dependent 3 L at home Surgical History Hx of hysterectomy Family History Other Family history non-contributory Social History Smoking and tobacco/nicotine status: former use of tobacco/nicotine Quit status (tobacco/nicotine): has quit using Year quit tobacco: 2019 Former quit date comment: 2 ppd X 20 years Second hand smoke exposure: Yes Alcohol intake: never Substance/Drug Use: never Household members: spouse Housing: House Physical Exam Const: COMMON NORMALS: no acute distress GENERAL APPEARANCE: cooperative and comfortable ORIENTATION/CONSCIOUSNESS: Yes awake, Yes oriented to person, Yes oriented to place and Yes oriented to time HENMT: COMMON NORMALS: normocephalic, atraumatic and hearing grossly normal bilaterally HEAD & SCALP: normocephalic and atraumatic Resp: COMMON NORMALS: normal respiratory effort, No retractions, No use of accessory muscles and clear to auscultation bilaterally AUSCULTATION: clear to auscultation bilaterally Cardio: COMMON NORMALS: regular rate, regular rhythm and No murmurs present (Cardio) RATE: regular rate RHYTHM: regular rhythm GI: COMMON NORMALS: Soft to palpation and No hepatosplenomegaly present AUSCULTATION: Yes normoactive bowel sounds PALPATION: Yes Soft to palpation, No Tenderness to palpation present (GI), No Guarding due to palpation present (GI) and Yes No hepatosplenomegaly present Extremity: COMMON NORMALS: normal to inspection, capillary refill normal, no clubbing, cyanosis or edema, no calf tenderness and no pedal edema Neuro: SENSORIUM/ORIENTATION: Yes oriented to person, Yes oriented to place and Yes oriented to time Skin: COMMON NORMALS: no rashes or lesions noted GENERAL SKIN EXAM: no rashes or lesions noted Course Vital Signs: Vital signs: Vital Signs Temperature 97.5 F L 08/05/23 11:44 Pulse Rate 132 H 08/05/23 11:44 Respiratory Rate 26 H 08/05/23 11:44 Blood Pressure 144/76 08/05/23 11:44 Pulse Oximetry 93 08/05/23 11:44 Oxygen Delivery Me thod Room Air 08/05/23 11:44 MDM - Arrhythmia/Palpitations Medical Decision Making Patient missed her medications this morning because she had not been able to eat she had not taken the metoprolol. She was in a sinus tachycardia when she arrived here she was given small dose of IV metoprolol and given her regular oral dose of metoprolol. Heart rate is now in the 80s in a sinus rhythm blood pressures is normotensive patient has no further symptoms will discharge home strongly encouraged her not to miss any doses of the metoprolol as it can cause rebound tachycardia. Medical Records I reviewed the patient's medical records. Lab Data I reviewed the patient's lab results. 08/05/23 12:08 08/05/23 12:08 Laboratory Results WBC 7.43 10^3/uL (3.29-11.43) 08/05/23 12:08 RBC 4.52 10^6/uL (3.85-5.65) 08/05/23 12:08 Hgb 13.90 g/dL (11.27-16.99) 08/05/23 12:08 Hct 42.6 % (36-47) 08/05/23 12:08 MCV 94.2 fl (85-98) 08/05/23 12:08 MCH 30.8 pg (27-33) 08/05/23 12:08 MCHC 32.6 g/dL (30-55) 08/05/23 12:08 RDW 13.5 % (12.1-15.1) 08/05/23 12:08 Plt Count 366 10^3/cmm (157-399) 08/05/23 12:08 MPV 10.8 fL (7.4-10.4) H 08/05/23 12:08 Neut % (Auto) 54.1 % 08/05/23 12:08 Lymph % (Auto) 33.6 % 08/05/23 12:08 Mcdonald % (Auto) 10.1 % 08/05/23 12:08 Eos % (Auto) 0.9 % 08/05/23 12:08 Baso % (Auto) 0.9 % 08/05/23 12:08 Neut # (Auto) 4.01 10^3/uL (1.8-7.7) 08/05/23 12:08 Lymph # (Auto) 2.5 10^3/uL (0.8-4.8) 08/05/23 12:08 Mcdonald # (Auto) 0.8 10^3/uL (0.2-0.9) 08/05/23 12:08 Eos # (Auto) 0.1 10^3/uL (0.0-0.8) 08/05/23 12:08 Baso # (Auto) 0.1 10^3/uL (0.0-0.1) 08/05/23 12:08 Nucleated RBC % (auto) 0 % 08/05/23 12:08 Nucleated RBCs # 0.0 /100WBC 08/05/23 12:08 Sodium 139 mmol/L (136-145) 08/05/23 12:08 Potassium 4.1 mmol/L (3.5-5.1) 08/05/23 12:08 Chloride 104 mmol/L (98-107) 08/05/23 12:08 Carbon Dioxide 24 mmol/L (22-29) 08/05/23 12:08 Anion Gap 15.1 (5-19) 08/05/23 12:08 BUN 18 mg/dL (8-23) 08/05/23 12:08 Creatinine 0.6 mg/dL (0.5-0.9) 08/05/23 12:08 GFR Calculation 98.8 mL/min (90-130) 08/05/23 12:08 Glucose 128 mg/dL (65-115) H 08/05/23 12:08 Calculated Osmolality 292 mOsm/kg (285-295) 08/05/23 12:08 Lactic Acid 1.7 mmol/L (0.5-2.2) 08/05/23 12:08 Calcium 9.7 mg/dL (8.5-10.5) 08/05/23 12:08 Total Bilirubin 0.2 mg/dL (0.15-1.2) 08/05/23 12:08 AST 20 U/L (0-32) 08/05/23 12:08 ALT 22 U/L (0-33) 08/05/23 12:08 Alkaline Phosphatase 91 U/L (35-105) 08/05/23 12:08 Troponin T Baseline 8 ng/L (0-10) 08/05/23 12:08 Total Protein 6.8 g/dL (6.6-8.7) 08/05/23 12:08 Albumin 4.2 g/dL (3.5-5.2) 08/05/23 12:08 Globulin 2.6 g/dL (1.3-4.6) 08/05/23 12:08 TSH 0.58 uIU/mL (0.27-4.20) 08/05/23 12:08 All radiology interpretation(s) finalized by discharge Discharge Plan Discharge Patient Disposition: Home Clinical Impression: Medication side effects, A-fib Condition: Stable Prescriptions: No Action Stiolto Respimat 2.5-2.5 mcg/actuation mist 2 puff inhalation DAILY Qty: 4 3RF (DME) INOGEN/Oxygen 2-4L See Rx Instructions .Route .MEDSUPPLY Qty: 1 0RF Rx Instructions: 2-4L/NC to maintain saturation greater than 89% trazodone 100 mg Tablet 100 mg PO BEDTIME Tylenol Ex Str Rapid Release 500 mg Tablet 1,000 mg PO Q6H PRN (Reason: Pain) potassium chloride 20 mEq tablet,ER particles/crystals 30 meq PO QAM metoprolol tartrate 25 mg tablet 12.5 mg PO BID Eliquis 5 mg tablet 5 mg PO BID albuterol sulfate 90 mcg/actuation HFA aerosol inhaler 2 inh INHALATION Q6H PRN (Reason: shortness of breath or wheezing) Qty: 8 0RF Discharge Orders: Discharge ED (Routine); Ordered 08/05/23 Ordered By: Shakir Siu Referrals: Mary Ledbetter FNP [Primary Care Provider] - Discharge Diet: Usual diet Discharge Activity: Resume usual activity Patient Instructions: Opioid Safety, Pain Management Activity Restrictions/Additional Instructions: Thank you for choosing [facility] for your healthcare needs today. Please realize this is an emergency room and that we are providing you with a medical screening exam and this may not be complete and all inclusive of all the testing and or work up that you may need to determine your ailment or severity of your illness. It is very important that you follow up as instructed or that you return to the Emergency Department should you have concerns or if your condition changes or worsens in any way. You were seen today for rapid heart rate. Your rapid heart rate was most likely caused by rebound tachycardia from missing the dose of metoprolol. Recommend that even when fasting you take your metoprolol at his regular scheduled time. Your heart rate improved after you are given medications follow-up with your primary care doctor. Coding Level of Care Code ED [employer]in Equipment Supervisor for Dangelo Weeks
[2023-08-05 12:24] LABS: Basophils # 0.1 10^3/uL (0.0-0.1); Basophils % 0.9 %; Eosinophils # 0.1 10^3/uL (0.0-0.8); Eosinophils % 0.9 %; Hematocrit 42.6 % (36-47); Lymphocytes # 2.5 10^3/uL (0.8-4.8); Lymphocytes % 33.6 %; Mean Corpuscular HGB Conc 32.6 g/dL (30-55); Mean Corpuscular Hemoglobin 30.8 pg (27-33); Mean Corpuscular Volume 94.2 fl (85-98); Mean Platelet Volume 10.8 fL (7.4-10.4); Monocytes # 0.8 10^3/uL (0.2-0.9); Monocytes % 10.1 %; Neutrophils # 4.01 10^3/uL (1.8-7.7); Neutrophils % 54.1 %; Nucleated Red Blood Cells % 0 %; Platelet Count 366 10^3/cmm (157-399); Red Blood Count 4.52 10^6/uL (3.85-5.65); Red Cell Distribution Width 13.5 % (12.1-15.1); White Blood Count 7.43 10^3/uL (3.29-11.43)
[2023-08-05] MEDS: metoprolol tartrate 1 mg/1 mL SDV 5 mL 2.5 MG IVP (12:27)
[2023-08-05] MEDS: metoprolol tartrate 25 mg Tablet PO (12:27)
[2023-08-05 12:45] LABS: Lactic Sepsis W/Reflex 1.7 mmol/L (0.5-2.2)
[2023-08-05 12:51] LABS: Troponin(5th) Baseline 8 ng/L (0-10)
[2023-08-05 12:59] LABS: Alanine Aminotransferase 22 U/L (0-33); Albumin Level 4.2 g/dL (3.5-5.2); Alkaline Phosphatase 91 U/L (35-105); Anion Gap 15.1 (5-19); Aspartate Amino Transferase 20 U/L (0-32); Blood Urea Nitrogen 18 mg/dL (8-23); Calcium 9.7 mg/dL (8.5-10.5); Carbon Dioxide 24 mmol/L (22-29); Chloride 104 mmol/L (98-107); Globulin 2.6 g/dL (1.3-4.6); Glomerular Filtration Rate 98.8 mL/min (90-130); Glucose 128 mg/dL (65-115); Osmolality Calculated 292 mOsm/kg (285-295); Potassium 4.1 mmol/L (3.5-5.1); Sodium 139 mmol/L (136-145); Thyroid Stimulating Hormone 0.58 uIU/mL (0.27-4.20); Total Bilirubin 0.2 mg/dL (0.15-1.2); Total Protein 6.8 g/dL (6.6-8.7)
--- NOTE | 2023-08-05 13:45 | ECG_ITS ---
[facility] Test Date: 2023-08-05 Pat Name: Lisa Peterson Department: Room: Gender: Female Quantitative Equity Head: : 1955 Requested By: Shakir Yoder Order Number: [id number] Astrid MD: Vanessa Warren M.D. Measurements Intervals [place] Rate: 90 P: 82 FL: 168 QRS: 35 QRSD: 84 T: 64 QT: 343 QTc: 420 Interpretive Statements SINUS RHYTHM LOW QRS VOLTAGE IN PRECORDIAL LEADS [QRS DEFLECTION < 1.0 mV IN CHEST LEADS] Compared to ECG 08/05/2023 12:10:58 Sinus tachycardia no longer present Electronically Signed On 08-05-2023 21:52:45 CYLINDRICAL MIXER by Vanessa Warren M.D. [id number]
--- NOTE | 2023-08-05 13:57 | PC.PHAR ---
pt states she takes care of her own medications-pts [facility] med list shows wixela 250-50 one bid pt states she doesnt have/use that pt states she only has her albuterol inhaler and stiolto respimat-pt states she finished her levaquin 500mg daily filled on 07/24/23 7d/s states finished 07/30/23 and states she finished her medrol dose rafael filled 07/24/23 6d/s and finished 07/29/23-
== END 2023-08-05 15:18 | disposition home or self-care (01) ==
PROVIDERS: Emergency Provider Family Medicine; PCP Nurse Practitioner
DX: I48.91 Unspecified atrial fibrillation (principal); T44.7X5A Adverse effect of beta-adrenoreceptor antagonists, initial encounter; Z79.01 Long term (current) use of anticoagulants; J44.9 Chronic obstructive pulmonary disease, unspecified; Z99.81 Dependence on supplemental oxygen; Z87.891 Personal history of nicotine dependence
CPT/HCPCS: 36415; 71045; 80053; 83605; 84443; 84484; 85025; 87040; 93005; 96374; 99285; J3490

== ENCOUNTER → 2023-09-17 08:33 | Outpatient (BNVA) | payer OTHER, SELFPAY | PROVIDERS: PCP Nurse Practitioner; Visit Provider Internal Medicine Pulmonary Disease | DX: J44.1 Chronic obstructive pulmonary disease with (acute) exacerbation (principal); Z12.2 Encounter for screening for malignant neoplasm of respiratory organs; G47.34 Idiopathic sleep related nonobstructive alveolar hypoventilation; Z87.891 Personal history of nicotine dependence; R91.8 Other nonspecific abnormal finding of lung field; R60.0 Localized edema | CPT/HCPCS: 99214 ==

== ENCOUNTER 2024-12-29 09:45 | Outpatient (CLI) | payer OTHER, SELFPAY ==
--- NOTE | 2024-12-29 09:51 | MM_ITS ---
WS: [id number] BILATERAL SCREENING DIGITAL TOMOSYNTHESIS MAMMOGRAM WITH CAD HISTORY: SCREENING COMPARISON: 02/09/2020, 01/08/2018 Bilateral CC and MLO views with tomosynthesis and synthetic mammography submitted. Computer aided detection analyzed. Breast composition: There are scattered areas of fibroglandular density. No suspicious masses, microcalcifications or architectural distortion. Benign coarse calcifications in each breast. MM/MM scr BI tomosynthesis [id number] IMPRESSION: BI-RADS: 2 - Benign. FOLLOW UP: 1 Year Follow-up
== END 2024-12-29 09:46 | disposition home or self-care (01) ==
PROVIDERS: PCP Nurse Practitioner; Visit Provider Nurse Practitioner
DX: Z12.31 Encounter for screening mammogram for malignant neoplasm of breast (principal); R92.323 Mammographic fibroglandular density, bilateral breasts; R92.1 Mammographic calcification found on diagnostic imaging of breast
CPT/HCPCS: 77063; 77067

== ENCOUNTER → 2025-02-27 12:10 | Outpatient (BNVA) | payer OTHER, SELFPAY | PROVIDERS: PCP Nurse Practitioner; Visit Provider Internal Medicine Cardiovascular Disease | DX: I48.91 Unspecified atrial fibrillation (principal); Z79.01 Long term (current) use of anticoagulants; R06.09 Other forms of dyspnea; R07.9 Chest pain, unspecified; Z87.891 Personal history of nicotine dependence | CPT/HCPCS: 99204 ==

== ENCOUNTER 2025-03-27 06:30 | Outpatient (CLI) | payer OTHER, SELFPAY ==
--- NOTE | 2025-03-27 07:00 | USCV_ITS ---
Lisa Peterson Age: 69 Gender: F : 1955 Exam Date: 03/27/2025 07:02 Ordering Phys: Vanessa Warren MD ([email or web address]) Technologist: Exam Location: [facility] – [place] Indication: cp sob BP: 120 / 70 HR: 60 Rhythm: Sinus Technical Quality: Adequate MEASUREMENTS (Male / Female) Normal Values 2D ECHO LV Diastolic Diameter PLAX 4.1 cm 4.2 - 5.9 / 3.9 - 5.3 cm IVS Diastolic Thickness 1.0 cm 0.6 - 1.0 / 0.6 - 0.9 cm IVS Systolic Thickness 1.7 cm LVPW Diastolic Thickness 1.1 cm 0.6 - 1.0 / 0.6 - 0.9 cm LVPW Systolic Thickness 1.6 cm LVOT Diameter 2.1 cm LV Ejection Fraction 2D Teich 57.3 % LV Ejection Fraction MOD 4C 63.0 % LV Ejection Fraction MOD 2C 60.9 % LV Ejection Fraction 2C AL 61.9 % LA Diameter 3.2 cm RA Systolic Volume 4C AL 39.8 ml RA Systolic Volume 4C MOD 39.4 ml Aorta at Sinotubular Diameter 2.4 cm IVC Diameter 1.1 cm M-MODE LA Ao Ratio MM 1.1 AV Cusp Separation MM 2.1 cm DOPPLER AV Peak Velocity 116.0 cm/s LVOT Peak Velocity 76.0 cm/s AV Area Cont Eq vti 2.2 cm squared AV Area Cont Eq pk 2.2 cm squared MV Peak Velocity 82.0 cm/s MV Area PHT 5.1 cm squared Mitral E to A Ratio 0.9 TR Peak Velocity 205.0 cm/s TR Peak Gradient 16.8 mmHg TV Peak E Velocity 81.0 cm/s PV Peak Velocity 88.0 cm/s FINDINGS Left Ventricle Normal left ventricular size and systolic function, EF 61%. No regional wall motion abnormalities. Grade I/IV diastolic dysfunction (abnormal relaxation filling pattern), normal to mildly elevated filling pressures. Right Ventricle The right ventricle is normal in size and function. Right Atrium The right atrium is normal in size. Left Atrium The left atrium is normal in size. Mitral Valve No gross abnormalities noted Aortic Valve No gross abnormalities noted Tricuspid Valve No gross abnormalities noted Pulmonic Valve Pulmonic valve not well visualized. Pericardium Normal pericardium without effusion. Aorta Normal ascending aorta dimension. IVC The inferior vena cava appears normal. CONCLUSIONS Normal left ventricular size and systolic function, EF 61%. No regional wall motion abnormalities. Grade I/IV diastolic dysfunction (abnormal relaxation filling pattern), normal to mildly elevated filling pressures. Normal cardiac chamber sizes No gross valvular abnormalities. There is no pericardial effusion. There are no intracardiac masses. Compared to the study from 03/20/2023, there may not be a significant change. Dr Vanessa Warren MD FACC (Electronically Signed) Final Date: 30 March 2025 23:36 S
== END 2025-03-27 06:31 | disposition home or self-care (01) ==
LOC: RAD 06:31
PROVIDERS: PCP Nurse Practitioner; Visit Provider Internal Medicine Cardiovascular Disease
DX: R06.09 Other forms of dyspnea (principal); I51.89 Other ill-defined heart diseases
CPT/HCPCS: 93306